=== PATIENT | female | born 1970 | race Caucasian/White ===

== ENCOUNTER → 2016-10-27 | Outpatient (CLI) | payer BC ==
[2016-10-27 14:31] VITALS: BP 147/98; PULSE 108; RESP 20; TEMP 97.8; BMI 66.0
[2016-10-27 15:58] LABS: CHCM 32.4; HCT 48.7 % (34.0-46.0); HDW 2.66; HGB 15.5 gm/dL (11.4-16.0); MCH 29.6 pg (25.0-35.0); MCHC 31.8 g/dL (31.0-37.0); MCV 93.1 fL (80.0-100.0); Mean Platelet Volume 7.4; RBC 5.23 m/uL (3.80-5.40); RDW 14.8 % (11.5-15.5); WBC 10.9 k/uL (3.8-10.6)
[2016-10-27 16:09] LABS: ALT 52 U/L (9-52); AST 27 U/L (14-36); Alkaline Phosphatase 118 U/L (38-126); Anion Gap 10 mmol/L; Blood Urea Nitrogen 13 mg/dL (7-17); Carbon Dioxide 29 mmol/L (22-30); Chloride 105 mmol/L (98-107); Cholesterol 174 mg/dL (<200); Glucose 88 mg/dL (74-99); HDL Cholesterol 56 mg/dL (40-60); Iron 73 ug/dL (37-170); Non-African American GFR(MDRD) >60 (>60 ml/min/1.73 sqM); Potassium 4.7 mmol/L (3.5-5.1); Sodium 144 mmol/L (137-145); Total Bilirubin 0.4 mg/dL (0.2-1.3); Total Protein 7.4 g/dL (6.3-8.2); Triglycerides 106 mg/dL (<150)
[2016-10-27 16:19] LABS: Total Iron Binding Capacity 453 ug/dL (265-497)
[2016-10-27 17:15] LABS: Vitamin B12 379 pg/mL (239-931)
[2016-10-27 21:23] LABS: Hemoglobin A1C 6.4 % (4.2-6.1)
[2016-11-01 05:03] LABS: Anabasine Urine <2.0 ng/mL (<2.0)
--- NOTE | 2016-11-14 16:53 | P.PN ---
Progress Note - Text DATE OF CONSULTATION: 10/27/2016 DATE OF SERVICE: 10/27/2016 CHIEF COMPLAINT: Initial bariatric assessment. HISTORY OF PRESENT ILLNESS: Luz Elena Galloway is a 46-year-old female who comes in with long-standing history of morbid obesity. At a height of 5 feet, 5 inches, she comes in weighing 396 pounds. [place] body weight is 149 pounds. She is 247 pounds overweight. Her body mass is 66. She has tried cabbage diet including Weight Watchers. She also tried Atkins and My Fitness Pal. She actually had an adjustable gastric band placed in 2007. She reports intolerance to fills. The most that she has been able to lose with any of her weight loss programs is 80 pounds; however, she has gained all of her weight back. Again, her highest weight is at present, 396 pounds. Her personal goal is to get under 200 pounds. She reports hypertension including chronic obstructive pulmonary disease. She has diabetes including morbid obesity that runs in her family. She denies any personal or family history of colitis or Crohn's disease. She denies any diarrhea; however, she has constipation. She reports daytime somnolence including snoring and is yet to be evaluated for sleep apnea. Incidentally she is on amiodarone for her heart and is pending to see a record center specialist. She reports her gallbladder is already removed. She also reports severe and recurrent panniculitis. Now she presents for further evaluation and management. PAST MEDICAL HISTORY: 1. Super morbid obesity. 2. Depression. 3. Chronic obstructive pulmonary disease. 4. Hypertension. 5. Panniculitis. 6. Sleep apnea, untreated. PAST SURGICAL HISTORY: 1. . 2. Cholecystectomy. MEDICATIONS: 1. Multivitamin. 2. Motrin. 3. Ultram. 4. Effexor. 5. Singulair. 6. Lasix. 7. Vitamin D. 8. Ativan. 9. Amiodarone. ALLERGIES: Denies. SOCIAL HISTORY: No active alcohol use. She is a former tobacco user. FAMILY HISTORY: Pertinent for diabetes including morbid obesity. REVIEW OF SYSTEMS: CONSTITUTIONAL: [place] body weight of 149 pounds. At present, highest weight of 396 pounds. She is 247 pounds overweight. For a height of 5 feet 5 inches, her body mass index is 66. HEENT: Wears glasses. No troubles with hearing. Denies dysphagia. ENDOCRINE: Denies any known history of thyroid disorders or blood sugar glucose intolerance. RESPIRATORY: Reports daytime somnolence including snoring. She is yet to have treatment for obstructive sleep apnea. CARDIOVASCULAR: Has hypertension including prior history of heart disease. As a result, she is on amiodarone as well. GASTROINTESTINAL: Reports intermittent gastroesophageal reflux disease. She has a history of adjustable gastric band as well. The gallbladder has already been removed. She reports constipation. No reports of blood in her stools. MUSCULOSKELETAL: Has osteoarthritis of the lower back including bilateral hips and knees. NEURO: No reports of stroke or seizure disorders. PSYCH: No reports of depression or suicidal ideation. HEMATOLOGIC: Denies any easy bruising or bleeding. DIETARY HISTORY: She is tried cabbage diet, Atkins, My Fitness Pal including Weight Watchers. PHYSICAL EXAM: VITAL SIGNS: 97.8, 108, 20, 147/98; 5 feet 5 inches, 396 pounds. Body mass index of 66. GENERAL: Well-developed female in no acute distress. HEENT: No scleral icterus. Extraocular movements grossly intact. Moist buccal mucosa. NECK: Supple without lymphadenopathy. CHEST: Nonlabored respirations with equal bilateral excursions. CARDIOVASCULAR: Tachycardic. ABDOMEN: Soft, nontender, nondistended. MUSCULOSKELETAL: No clubbing , however, 2+ bilateral pitting edema. NEURO: No focal or lateralizing signs. Cranial nerves 2 through 12 grossly within normal limits. PSYCH: Appropriate affect. Alert and oriented to person, place, and time. SKIN: Hyperpigmentation along the neck base, highly suspicious for diabetes. Also, moderate pannus, with hyperpigmentation and erythema consistent with panniculitis and skin ulcerations. LABS: White count elevated at 10.9. Hematocrit elevated at 48.7. Hemoglobin A1c elevated at 6.4. Thyroid-stimulating hormone normal. EKG is pending. ASSESSMENT: 1. Morbid obesity due to excess calories. 2. Body mass index is 66. 3. Prior history of adjustable gastric band with intolerance. 4. Obstructive sleep apnea, untreated. 5. Glucose intolerance with diabetes. 6. Leukocytosis. 7. Hypertensive cardiomyopathy. 8. History of left ventricular hypertrophy. 9. Bilateral lower extremity edema. 10. Gastroesophageal reflux disease. 11. Osteoarthritis of the lower back. 12. Osteoarthritis of the bilateral hips. 13. Osteoarthritis of bilateral knees. 14. Congestive heart failure. PLAN: 1. She has multiple medical comorbidities related to her obesity including a body mass index of 66. Recommend surgical intervention particularly gastrectomy-type procedures. 2. She has a history of adjustable gastric band and also has gastroesophageal reflux disease despite no fluid in her band. With her present symptoms, I do recommend removal of adjustable gastric band as she has intolerance to her procedure. 3. Recommend evaluation with the record center specialist as she has history of tachycardia as well as dyspnea on exertion and bilateral lower extremity edema with potential congestive heart failure on exam. She did have a previous echo which was reviewed demonstrating moderate left ventricular hypertrophy. 4. Recommend medical risk assessment. 5. A 12-lead EKG advised. 6. Recommend a psych assessment evaluation. 7. [place] [facility] was reviewed for which the risk of the procedure, especially revision of procedure puts her at high risk for complications. 8. Recommend upper endoscopy for history of gastroesophageal reflux disease as well. 9. As her hemoglobin A1c is elevated consistent with diabetes, this may be dietary controlled as well. Thank you very much for this kind consultation. ADDENDUM: Recommend referral to a sleep clinic for untreated obstructive sleep apnea.
== END | disposition home or self-care (01) ==
LOC: BARWHC3 13:48
PROVIDERS: ATTEND Surgery Plastic and Reconstructive Surgery
DX: Z01.818 Encounter for other preprocedural examination (principal); E66.01 Morbid (severe) obesity due to excess calories; Z68.44 Body mass index [BMI] 60.0-69.9, adult; G47.33 Obstructive sleep apnea (adult) (pediatric); E74.39 Other disorders of intestinal carbohydrate absorption; E11.9 Type 2 diabetes mellitus without complications; D72.829 Elevated white blood cell count, unspecified; I11.9 Hypertensive heart disease without heart failure; I51.7 Cardiomegaly; R60.0 Localized edema; R00.0 Tachycardia, unspecified; R06.00 Dyspnea, unspecified; K21.9 Gastro-esophageal reflux disease without esophagitis; M47.896 Other spondylosis, lumbar region; M16.0 Bilateral primary osteoarthritis of hip; M17.0 Bilateral primary osteoarthritis of knee; Z79.899 Other long term (current) drug therapy; Z87.891 Personal history of nicotine dependence; Z98.84 Bariatric surgery status
CPT/HCPCS: 36415; 80053; 80061; 80323; 82306; 82607; 82728; 82746; 83036; 83540; 83550; 84425; 84443; 85027; 99201

== ENCOUNTER 2016-11-08 13:42 | Emergency (ER) | payer BC ==
[2016-11-08 14:10] VITALS: RESP 18
[2016-11-08] MEDS ORDERED: LABETALOL SYRINGE 5 MG/ML IVP STA (16:49)
[2016-11-08 17:08] LABS: Basophils # (A) 0.1 k/uL (0-0.2); Basophils % (A) 0 %; CHCM 32.8; Eosinophils # (A) 0.2 k/uL (0-0.7); Eosinophils % (A) 1 %; HDW 2.68; HGB 15.5 gm/dL (11.4-16.0); Luc # (Auto) 0.33; Luc % (Auto) 2; Lymphocytes % (A) 21 %; MCH 29.6 pg (25.0-35.0); MCHC 32.2 g/dL (31.0-37.0); MCV 91.7 fL (80.0-100.0); Mean Platelet Volume 6.7; Monocytes # (A) 0.9 k/uL (0-1.0); Monocytes % (A) 7 %; Neutrophils # (A) 9.4 k/uL (1.3-7.7); Neutrophils % (A) 68 %; RBC 5.23 m/uL (3.80-5.40); RDW 14.9 % (11.5-15.5); WBC 13.8 k/uL (3.8-10.6); WBC (Perox) 13.46
[2016-11-08 17:18] LABS: Anion Gap 14 mmol/L; Blood Urea Nitrogen 17 mg/dL (7-17); Calcium 9.8 mg/dL (8.4-10.2); Carbon Dioxide 26 mmol/L (22-30); Chloride 105 mmol/L (98-107); Glucose 105 mg/dL (74-99); Non-African American GFR(MDRD) >60 (>60 ml/min/1.73 sqM); Potassium 4.3 mmol/L (3.5-5.1); Sodium 145 mmol/L (137-145)
--- NOTE | 2016-11-08 17:29 | XR ---
EXAMINATION TYPE: XR chest 2V DATE OF EXAM: 11/08/2016 5:22 PM COMPARISON: 04/13/2016 HISTORY: Hypertension TECHNIQUE: Frontal and lateral views of the chest are obtained. FINDINGS: There is no heart failure nor confluent pneumonic infiltrate. Costophrenic angles are bee r. There are no hilar masses. Bony thorax is intact. IMPRESSION: No active cardiopulmonary disease. No change.
--- NOTE | 2016-11-08 17:39 | ED ---
General Adult HPI - General Chief complaint: Recheck/Abnormal Lab/Rx Stated complaint: Dr Ellis/VIVIENNE Time Seen by Provider: 11/08/16 16:28 Source: patient Mode of arrival: ambulatory Limitations: no limitations - History of Present Illness Initial comments: Patient is a 46-year-old female with past history of hypertension presenting with hypertension, headache and SOB. Patient had a regular routine visit with her primary care doctor today who found blood pressure be ~200/100. PCP tried clonidine without relief. Patient states she's been having a generalized headache and stress breath for the past 3 days. She admits to blurry vision. Patient states she is on Lasix as well as lisinopril/hydrochlorothiazide for her blood pressure. She admits to compliance with her medications. Patient continues to smoke 6 cigarettes a day. She states she is more SOB and unable to walk far distances. Patient denies following a salt restricted diet. Patient denies fever, chills, chest pain, nausea or vomiting, diarrhea, dysuria. Denies weakness, numbness. - Related Data Home Medications Medication Instructions Recorded Confirmed Furosemide [Lasix] 20 mg PO DAILY 04/13/16 11/08/16 Venlafaxine HCl [Effexor XR] 225 mg PO DAILY 04/13/16 11/08/16 Ergocalciferol [Vitamin D2] 50,000 unit PO MO 10/27/16 11/08/16 Ibuprofen [Motrin] 600 mg PO Q8HR PRN 10/27/16 11/08/16 LORazepam [Ativan] 0.5 mg PO TID 10/27/16 11/08/16 Montelukast [Singulair] 10 mg PO HS 10/27/16 11/08/16 Multivitamins, Thera [Multivitamin] 1 tab PO DAILY 10/27/16 11/08/16 Gabapentin [Neurontin] 300 mg PO TID 11/08/16 11/08/16 amLODIPine [Norvasc] 10 mg PO DAILY 11/08/16 11/08/16 Previous Rx's Medication Instructions Recorded traMADol HCl [Ultram] 50 mg PO Q4H PRN #30 tab 04/14/16 Nystatin 100,000 Unit/gm Powd 1 applic TOPICAL BID #60 powder 10/27/16 [Mycostatin Powder] Allergies Allergy/AdvReac Type Severity Reaction Status Date / Time No Known Allergies Allergy Verified 11/08/16 17:03 Review of Systems ROS Statement: Those systems with pertinent positive or pertinent negative responses have been documented in the HPI. Constitutional: No fever and no chills. HENT: No congestion, no rhinorrhea and no sore throat. Eyes: No discharge and no redness. Respiratory: No cough and +shortness of breath. Cardiovascular: No chest pain and no palpitations. Gastrointestinal: No nausea, no vomiting, no abdominal pain and no diarrhea. Genitourinary: No dysuria and no hematuria. Musculoskeletal: No back pain and no arthralgias. Skin: No pallor and no rash. Neurological: No dizziness and +headaches. ROS Other: All systems not noted in ROS Statement are negative. Past Medical History Past Medical History: Hypertension Additional Past Medical History / Comment(s): neuropathy, edema, brain lesions, anemia History of Any Multi-Drug Resistant Organisms: None Reported Past Surgical History: Bariatric Surgery, Section, Cholecystectomy, Hysterectomy, Tubal Ligation Additional Past Surgical History / Comment(s): lap band 2008, oopherectomy Past Anesthesia/Blood Transfusion Reactions: No Reported Reaction Past Psychological History: No Psychological Hx Reported Smoking Status: Current every day smoker Past Alcohol Use History: None Reported Past Drug Use History: None Reported - Past Family History Mother Family Medical History: Hypertension Father Family Medical History: Hypertension General Exam - General Exam Comments Initial Comments: Constitutional: Patient appears well-developed and well-nourished. No distress. Morbidly obese. Head: Normocephalic and atraumatic. Eyes: Conjunctivae and EOM are normal. Right eye exhibits no discharge. Left eye exhibits no discharge. No scleral icterus. Neck: Normal range of motion. Neck supple. Cardiovascular: Normal rate and regular rhythm. No murmur heard. Pulmonary/Chest: Effort normal and breath sounds normal. No respiratory distress. No wheezes. Abdominal: Soft. No distension. There is no tenderness. There is no rebound and no guarding. Musculoskeletal: Normal range of motion. No edema or tenderness. Neuro Exam: A&Ox3, speech is fluent and spontaneous CN 2: no visual field deficits, PERRL CN 3, 4, 6: EOMI CN 5: facial sensation intact b/l CN 7: Eyebrow raise and smile equal b/l CN 8: hearing intact to conversation CN 9, 10: palate elevation equal, no hoarseness to voice CN 11: shoulder shrug equal b/l CN 12: tongue protrusion w/o deviation Sensory: Intact to light touch, upper and lower extremities Motor: No pronator drift, no atrophy, normal muscle tone, b/l muscle strength 5/ 5 of hand flexors, biceps, triceps, quads, hamstrings, plantar and dorsiflexion Cerebellar: finger to nose intact b/l, heel to jimenez intact b/l, Romberg negative Gait: Normal Skin: Skin is warm and dry. Not diaphoretic. Nursing notes and vitals reviewed. Limitations: no limitations Course Vital Signs 11/08/16 11/08/16 14:07 18:24 Temperature 98.7 F Pulse Rate 124 H 89 Respiratory 18 18 Rate Blood Pressure 215/98 161/89 O2 Sat by Pulse 96 94 L Oximetry EKG Findings - EKG Comments: EKG Findings:: EKG done 1701 shows a ventricular rate of 92 bpm. Normal sinus rhythm. No ST or T-wave changes. ID interval 160 ms, QRS duration 98 ms, QTC 452 ms Medical Decision Making - Medical Decision Making Patient's a 46-year-old presenting with hypertension. Blood pressure controlled the 20 mg labetalol. Workup does not show any signs of end organ damage. Laboratory work shows WBC 13.8, unremarkable BMP. Troponin negative. EKG unremarkable. Chest x-ray unremarkable. Negative head CT. Discussed care with Dr. Almeida who will adjust patient's hypertension tomorrow. He called in a prescription for Benicar to her pharmacy. He states he will have cardiology follow-up in the week. Prior to discharge, patient was resting comfortably in bed. Course of stay improved. Denies pain. Shortness of breath improved with rest. Discussed physical exam and diagnostic tests with patient. Questions answered and patient is agreeable to discharge with close follow up with Primary Care Physician. Instructed to return to Emergency Department if symptoms worsen. - Lab Data Result diagrams: 11/08/16 17:00 11/08/16 17:00 Lab Results 11/08/16 11/08/16 11/08/16 Range/Units 17:00 17:00 17:00 WBC 13.8 H (3.8-10.6) k/uL RBC 5.23 (3.80-5.40) m/uL Hgb 15.5 (11.4-16.0) gm/dL Hct 48.0 H (34.0-46.0) % MCV 91.7 (80.0-100.0) fL MCH 29.6 (25.0-35.0) pg MCHC 32.2 (31.0-37.0) g/dL RDW 14.9 (11.5-15.5) % Plt Count 322 (150-450) k/uL Neutrophils % 68 % Lymphocytes % 21 % Monocytes % 7 % Eosinophils % 1 % Basophils % 0 % Neutrophils # 9.4 H (1.3-7.7) k/uL Lymphocytes # 3.0 (1.0-4.8) k/uL Monocytes # 0.9 (0-1.0) k/uL Eosinophils # 0.2 (0-0.7) k/uL Basophils # 0.1 (0-0.2) k/uL Sodium 145 (137-145) mmol/L Potassium 4.3 (3.5-5.1) mmol/L Chloride 105 (98-107) mmol/L Carbon Dioxide 26 (22-30) mmol/L Anion Gap 14 mmol/L BUN 17 (7-17) mg/dL Creatinine 0.69 (0.52-1.04) mg/dL Est GFR (MDRD) Af Amer >60 (>60 ml/min/1.73 sqM) Est GFR (MDRD) Non-Af >60 (>60 ml/min/1.73 sqM) Glucose 105 H (74-99) mg/dL Calcium 9.8 (8.4-10.2) mg/dL Troponin I <0.012 (0.000-0.034) ng/mL Disposition Clinical Impression: Hypertension Disposition: HOME SELF-CARE Condition: Good Instructions: Hypertension (ED) Referrals: Rafael Love MD [Primary Care Provider] - 1-2 days
--- NOTE | 2016-11-08 18:27 | CT ---
EXAMINATION TYPE: CT brain wo con DATE OF EXAM: 11/08/2016 6:18 PM COMPARISON: 04/14/2016 HISTORY: Hypertension and headache. CT DLP: 1207.00 mGycm Automated exposure control for dose reduction was used. FINDINGS: The ventricles and sulci appear normal. There is no mass effect or midline shift. There is no sign of intracranial hemorrhage. There is curvilinear calcification at the left anterior parietal convexity consistent with arachnoid calcification. The calvarium is intact. IMPRESSION: Negative unenhanced head CT scan. No change.
[2016-11-08 19:16] VITALS: BP 136/87; PULSE 80; TEMP 97.5
== END 2016-11-08 19:15 | disposition home or self-care (01) ==
LOC: EC 13:42
DX: I10 Essential (primary) hypertension (principal); R51 Headache; R06.02 Shortness of breath; H53.8 Other visual disturbances; G62.9 Polyneuropathy, unspecified; F17.210 Nicotine dependence, cigarettes, uncomplicated; D64.9 Anemia, unspecified; Z79.899 Other long term (current) drug therapy
CPT/HCPCS: 36415; 70450; 71020; 80048; 84484; 85025; 93005; 96374; 99284

== ENCOUNTER → 2016-11-29 | Outpatient (CLI) | payer BC ==
[2016-11-29 13:02] VITALS: BMI 65.3
== END | disposition home or self-care (01) ==
LOC: MNTWWP 08:41
PROVIDERS: ATTEND Surgery Plastic and Reconstructive Surgery
DX: Z71.3 Dietary counseling and surveillance (principal); E66.01 Morbid (severe) obesity due to excess calories; Z68.44 Body mass index [BMI] 60.0-69.9, adult

== ENCOUNTER → 2016-12-22 | Outpatient (CLI) | payer BC ==
[2016-12-22 14:56] VITALS: BMI 65.9
[2016-12-22 15:08] VITALS: BP 132/83; PULSE 114; RESP 16; TEMP 98.3
--- NOTE | 2017-01-26 | P.PN ---
Progress Note - Text DATE OF SERVICE: 12/22/2016 CHIEF COMPLAINT: Bariatric assessment. HISTORY OF PRESENT ILLNESS: Luz Elena Galloway is a 46-year-old female who initially presented to the program in October of 2016, now a little over a month ago. She reports her highest weight was 396 pounds. Her ideal body weight is 149 pounds. She comes in today weighing 396 pounds which is essentially unchanged. She is 247 pounds overweight. Body mass index is 66. Her weight, again, has been essentially unchanged. She comes in with finding suggestive of sleep apnea. She did not know she had diabetes. She had completed an echocardiogram including an evaluation with her engineering faculty member. Now she presents for further evaluation regarding revision from her band to a potential gastric bypass. PAST MEDICAL HISTORY: 1. Super morbid obesity. 2. Depression. 3. Chronic obstructive pulmonary disease. 4. Hypertension. 5. Panniculitis. 6. Sleep apnea, untreated. PAST SURGICAL HISTORY: 1. . 2. Cholecystectomy. 3. Echocardiogram completed 11/29/2016. MEDICATIONS: 1. Multivitamin. 2. Motrin. 3. Ultram. 4. Effexor. 5. Singulair. 6. Lasix. 7. Vitamin D. 8. Ativan. 9. Amiodarone. ALLERGIES: Denies. SOCIAL HISTORY: No active alcohol use. She is a former tobacco user. FAMILY HISTORY: Pertinent for diabetes including morbid obesity. REVIEW OF SYSTEMS: CONSTITUTIONAL: Axis body weight of 149 pounds. She comes at her highest weight of 396 pounds. She is 247 pounds overweight. Body mass index is unchanged. RESPIRATORY: History of obstructive sleep apnea, untreated. ENDOCRINE: New diagnosis of diabetes type 2, untreated. HEENT: Wears glasses. No troubles with hearing. Denies dysphagia. CARDIOVASCULAR: Has hypertension including prior history of heart disease. As a result, she is on amiodarone as well. GASTROINTESTINAL: Reports intermittent gastroesophageal reflux disease. She has a history of adjustable gastric band as well. The gallbladder has already been removed. She reports constipation. No reports of blood in her stools. MUSCULOSKELETAL: Has osteoarthritis of the lower back including bilateral hips and knees. NEURO: No reports of stroke or seizure disorders. PSYCH: No reports of depression or suicidal ideation. HEMATOLOGIC: Denies any easy bruising or bleeding. DIETARY HISTORY: She is tried cabbage diet, Atkins, My Fitness Pal including Weight Watchers. PHYSICAL EXAM: VITAL SIGNS: 98.3, 114, 16, 132/83; 5 foot 5 and 396 pounds. Body mass index is 66. CARDIOVASCULAR: Tachycardic. ABDOMEN: Soft, nontender, nondistended. Hyperpigmentation of the lower abdomen consistent with panniculitis. GENERAL: Well-developed female in no acute distress. HEENT: No scleral icterus. Extraocular movements grossly intact. Moist buccal mucosa. NECK: Supple without lymphadenopathy. CHEST: Nonlabored respirations with equal bilateral excursions. MUSCULOSKELETAL: No clubbing , however, 1+ bilateral pitting edema. NEURO: No focal or lateralizing signs. Cranial nerves 2 through 12 grossly within normal limits. PSYCH: Appropriate affect. Alert and oriented to person, place, and time. LABS: White blood cell count was elevated at 13.8. Neutrophils was elevated at 9.4. Hemoglobin A1c is 6.4. Urine is positive for active tobacco exposure and use. EKG demonstrated right atrial enlargement. ASSESSMENT: 1. Morbid obesity due to excess calories. 2. Body mass index is 66. 3. Prior history of adjustable gastric band with intolerance. 4. Obstructive sleep apnea, untreated. 5. Glucose intolerance with diabetes. 6. Leukocytosis. 7. Hypertensive cardiomyopathy. 8. History of left ventricular hypertrophy. 9. Bilateral lower extremity edema. 10. Gastroesophageal reflux disease. 11. Osteoarthritis of the lower back. 12. Osteoarthritis of the bilateral hips. 13. Osteoarthritis of bilateral knees. 14. Congestive heart failure. 15. History of complications from adjustable gastric band. 16. Gastroesophageal reflux disease. 17. Panniculitis. 18. Diabetes type 2, untreated. 19. Abnormal EKG with a recent echo completed. PLAN: 1. She has completed a cardiac risk assessment with her engineering faculty member within the last 1 or 2 weeks. 2. I did review with her laboratory results of her hemoglobin A1c is abnormal consistent with prediabetes to diabetes. At this time, it is dietary controlled. 3. She has tachycardia on exam. Again, she has complete cardiac risk assessment. 4. She has persistent elevated leukocytosis. Will likely need a recheck prior to surgical intervention. 5. We reviewed her surgical options. She is looking into a Lucien-en-Y gastric bypass. At this time I have strongly recommended at least removal of her band as she reports discomfort and intractable nausea and vomiting with her adjustable gastric band. 6. She has history of including intra-abdominal adhesions, which alternatives to a sleeve gastrectomy was also reviewed. 7. [place] bariatric surgery collaborative outcomes calculator was reviewed. The risks were also clearly reviewed. 8. Recommend removal of adjustable gastric band prior to any additional definitive surgical intervention.
== END | disposition home or self-care (01) ==
LOC: BARWHC3 13:59
PROVIDERS: ATTEND Surgery Plastic and Reconstructive Surgery
DX: Z01.818 Encounter for other preprocedural examination (principal); E66.01 Morbid (severe) obesity due to excess calories; Z68.44 Body mass index [BMI] 60.0-69.9, adult; Z98.84 Bariatric surgery status; K95.09 Other complications of gastric band procedure; G47.33 Obstructive sleep apnea (adult) (pediatric); E74.39 Other disorders of intestinal carbohydrate absorption; E11.9 Type 2 diabetes mellitus without complications; D72.829 Elevated white blood cell count, unspecified; I11.9 Hypertensive heart disease without heart failure; I51.7 Cardiomegaly; R60.0 Localized edema; K21.9 Gastro-esophageal reflux disease without esophagitis; M47.896 Other spondylosis, lumbar region; M16.0 Bilateral primary osteoarthritis of hip; M17.0 Bilateral primary osteoarthritis of knee; I50.9 Heart failure, unspecified; M79.3 Panniculitis, unspecified; R94.31 Abnormal electrocardiogram [ECG] [EKG]; R00.0 Tachycardia, unspecified; Z72.0 Tobacco use; L81.9 Disorder of pigmentation, unspecified; K59.00 Constipation, unspecified; Z79.899 Other long term (current) drug therapy
CPT/HCPCS: 99211

== ENCOUNTER → 2017-01-12 | Outpatient (CLI) | payer BC ==
[2017-01-12 15:21] LABS: Basophils # (A) 0.1 k/uL (0-0.2); Basophils % (A) 1 %; CH 29.9; CHCM 32.4; Eosinophils # (A) 0.1 k/uL (0-0.7); Eosinophils % (A) 1 %; HCT 50.3 % (34.0-46.0); HGB 16.4 gm/dL (11.4-16.0); Luc # (Auto) 0.42; Luc % (Auto) 3; Lymphocytes # (A) 2.5 k/uL (1.0-4.8); Lymphocytes % (A) 20 %; MCH 30.4 pg (25.0-35.0); MCHC 32.7 g/dL (31.0-37.0); MCV 92.8 fL (80.0-100.0); Mean Platelet Volume 7.6; Monocytes # (A) 0.6 k/uL (0-1.0); Monocytes % (A) 5 %; Neutrophils # (A) 8.8 k/uL (1.3-7.7); Neutrophils % (A) 70 %; RBC 5.42 m/uL (3.80-5.40); RDW 14.6 % (11.5-15.5); WBC 12.5 k/uL (3.8-10.6); WBC (Perox) 13.49
[2017-01-12 15:30] LABS: ALT 48 U/L (9-52); AST 34 U/L (14-36); Alkaline Phosphatase 124 U/L (38-126); Anion Gap 13 mmol/L; Blood Urea Nitrogen 17 mg/dL (7-17); Calcium 9.7 mg/dL (8.4-10.2); Carbon Dioxide 27 mmol/L (22-30); Chloride 101 mmol/L (98-107); Glucose 95 mg/dL (74-99); Non-African American GFR(MDRD) >60 (>60 ml/min/1.73 sqM); Potassium 4.5 mmol/L (3.5-5.1); Sodium 141 mmol/L (137-145); Total Bilirubin 0.5 mg/dL (0.2-1.3); Total Protein 7.8 g/dL (6.3-8.2)
== END ==
LOC: LABPAT 14:45
PROVIDERS: ATTEND Surgery Plastic and Reconstructive Surgery
DX: Z01.812 Encounter for preprocedural laboratory examination (principal)
CPT/HCPCS: 80053; 85025

== ENCOUNTER 2017-01-14 09:25 | Day surgery (SDC) | payer BC ==
[~2017-01-14 09:25] MED LIST: DEXAMETHASONE SOD PHOSPHATE 10 MG/ML 1 ML VIAL IV ONE; HYDROmorphone 1 MG/ML 1 ML SYRINGE IVP PRN; MIDAZOLAM 2 MG/2 ML VIAL IV PRN; ONDANSETRON 4 MG/2 ML VIAL IVP ONE; SCOPOLAMINE 1.5MG/72HR PATCH TRANSDERM ONE; ceFAZolin 3 GM in SODIUM CHLORIDE 0.9% 100 ML IVPB ONE
[2017-01-14] MEDS: LACTATED RINGERS 1,000 ML IV SCH (12:00)
[2017-01-14] MEDS ORDERED: LIDOCAINE 1% 20 ML VIAL (10MG/ML) FOR IV START INTRADERMA ONE (12:00)
--- NOTE | 2017-01-14 15:58 | P.GSHP ---
History of Present Illness H&P Date: 01/14/17 CHIEF COMPLAINT: Complications from gastric band. HISTORY OF PRESENT ILLNESS: Luz Elena Galloway is a 46-year-old female who comes in with long-standing history of morbid obesity. At a height of 5 feet, 5 inches, she comes in weighing 396 pounds. [place] body weight is 149 pounds. She is 247 pounds overweight. Her body mass is 66. She has tried cabbage diet including Weight Watchers. She also tried Atkins and My Fitness Pal. She actually had an adjustable gastric band placed in 2007. She reports intolerance to fills. The most that she has been able to lose with any of her weight loss programs is 80 pounds; however, she has gained all of her weight back. Again, her highest weight is at present, 396 pounds. Her personal goal is to get under 200 pounds. She reports hypertension including chronic obstructive pulmonary disease. She has diabetes including morbid obesity that runs in her family. She denies any personal or family history of colitis or Crohn's disease. She denies any diarrhea; however, she has constipation. She reports daytime somnolence including snoring and is yet to be evaluated for sleep apnea. Incidentally she is on amiodarone for her heart and is pending to see a edge runner. She reports her gallbladder is already removed. She also reports severe and recurrent panniculitis. Now she presents for further evaluation and management. PAST MEDICAL HISTORY: 1. Super morbid obesity. 2. Depression. 3. Chronic obstructive pulmonary disease. 4. Hypertension. 5. Panniculitis. 6. Sleep apnea, untreated. PAST SURGICAL HISTORY: 1. . 2. Cholecystectomy. MEDICATIONS: 1. Multivitamin. 2. Motrin. 3. Ultram. 4. Effexor. 5. Singulair. 6. Lasix. 7. Vitamin D. 8. Ativan. 9. Amiodarone. ALLERGIES: Denies. SOCIAL HISTORY: No active alcohol use. She is a former tobacco user. FAMILY HISTORY: Pertinent for diabetes including morbid obesity. REVIEW OF SYSTEMS: CONSTITUTIONAL: [place] body weight of 149 pounds. At present, highest weight of 396 pounds. She is 247 pounds overweight. For a height of 5 feet 5 inches, her body mass index is 66. HEENT: Wears glasses. No troubles with hearing. Denies dysphagia. ENDOCRINE: Denies any known history of thyroid disorders or blood sugar glucose intolerance. RESPIRATORY: Reports daytime somnolence including snoring. She is yet to have treatment for obstructive sleep apnea. CARDIOVASCULAR: Has hypertension including prior history of heart disease. As a result, she is on amiodarone as well. GASTROINTESTINAL: Reports intermittent gastroesophageal reflux disease. She has a history of adjustable gastric band as well. The gallbladder has already been removed. She reports constipation. No reports of blood in her stools. MUSCULOSKELETAL: Has osteoarthritis of the lower back including bilateral hips and knees. NEURO: No reports of stroke or seizure disorders. PSYCH: No reports of depression or suicidal ideation. HEMATOLOGIC: Denies any easy bruising or bleeding. DIETARY HISTORY: She is tried cabbage diet, Atkins, My Fitness Pal including Weight Watchers. PHYSICAL EXAM: VITAL SIGNS: 97.8, 108, 20, 147/98; 5 feet 5 inches, 396 pounds. Body mass index of 66. GENERAL: Well-developed female in no acute distress. HEENT: No scleral icterus. Extraocular movements grossly intact. Moist buccal mucosa. NECK: Supple without lymphadenopathy. CHEST: Nonlabored respirations with equal bilateral excursions. CARDIOVASCULAR: Tachycardic. ABDOMEN: Soft, nontender, nondistended. MUSCULOSKELETAL: No clubbing , however, 2+ bilateral pitting edema. NEURO: No focal or lateralizing signs. Cranial nerves 2 through 12 grossly within normal limits. PSYCH: Appropriate affect. Alert and oriented to person, place, and time. SKIN: Hyperpigmentation along the neck base, highly suspicious for diabetes. Also, moderate pannus, with hyperpigmentation and erythema consistent with panniculitis and skin ulcerations. LABS: White count elevated at 10.9. Hematocrit elevated at 48.7. Hemoglobin A1c elevated at 6.4. Thyroid-stimulating hormone normal. EKG is pending. ASSESSMENT: 1. Morbid obesity due to excess calories. 2. Body mass index is 66. 3. Prior history of adjustable gastric band with intolerance. 4. Obstructive sleep apnea, untreated. 5. Glucose intolerance with diabetes. 6. Leukocytosis. 7. Hypertensive cardiomyopathy. 8. History of left ventricular hypertrophy. 9. Bilateral lower extremity edema. 10. Gastroesophageal reflux disease. 11. Osteoarthritis of the lower back. 12. Osteoarthritis of the bilateral hips. 13. Osteoarthritis of bilateral knees. 14. Congestive heart failure. PLAN: 1. She has multiple medical comorbidities related to her obesity including a body mass index of 66. Recommend surgical intervention particularly gastrectomy-type procedures. 2. She has a history of adjustable gastric band and also has gastroesophageal reflux disease despite no fluid in her band. With her present symptoms, I do recommend removal of adjustable gastric band as she has intolerance to her procedure. 3. DVT prophylaxis. 4. Antibiotic prophylaxis. 5. As she is at increased risk, post-op observation pending. Past Medical History Past Medical History: GERD/Reflux, Hypertension, Sleep Apnea/CPAP/BIPAP Additional Past Medical History / Comment(s): neuropathy, edema, brain lesions, anemia, migraines, getting cpap, History of Any Multi-Drug Resistant Organisms: None Reported Past Surgical History: Bariatric Surgery, Section, Cholecystectomy, Hysterectomy, Tubal Ligation Additional Past Surgical History / Comment(s): lap band, oopherectomy, Past Anesthesia/Blood Transfusion Reactions: No Reported Reaction Past Psychological History: Anxiety Smoking Status: Former smoker Past Alcohol Use History: None Reported Additional Past Alcohol Use History / Comment(s): stopped smoking 1 week ago, smoked for 20 yrs - 1/2 PPD Past Drug Use History: None Reported - Past Family History Mother Family Medical History: Cancer Father Family Medical History: Hypertension Medications and Allergies Home Medications Medication Instructions Recorded Confirmed Type Furosemide [Lasix] 20 mg PO DAILY 04/13/16 01/14/17 History Venlafaxine HCl [Effexor XR] 225 mg PO DAILY 04/13/16 01/14/17 History Ergocalciferol [Vitamin D2] 50,000 unit PO MO 10/27/16 01/14/17 History Ibuprofen [Motrin] 600 mg PO Q8HR PRN 10/27/16 01/12/17 History LORazepam [Ativan] 0.5 mg PO TID PRN 10/27/16 01/14/17 History Montelukast [Singulair] 10 mg PO HS 10/27/16 01/14/17 History Multivitamins, Thera [Multivitamin] 1 tab PO DAILY 10/27/16 01/12/17 History Gabapentin [Neurontin] 300 mg PO TID 11/08/16 01/14/17 History Olmesartan/Hydrochlorothiazide 1 each PO DAILY 01/12/17 01/14/17 History [Olmesartan-Hctz 40-25 mg Tab] Allergies Allergy/AdvReac Type Severity Reaction Status Date / Time No Known Allergies Allergy Verified 01/12/17 11:13 Surgical - Exam Vital Signs Temp Pulse Resp BP Pulse Ox 97.2 F L 89 18 145/88 96 01/14/17 11:41 01/14/17 11:41 01/14/17 11:41 01/14/17 11:41 01/14/17 11:41
[2017-01-14] MEDS ORDERED: ENOXAPARIN 40 MG/0.4 ML SYRINGE SQ STA (16:14)
[2017-01-14] MEDS ORDERED: MIDAZOLAM 2 MG/2 ML VIAL ONE (16:23)
[2017-01-14] MEDS ORDERED: NEOSTIGMINE 1 MG/ML 10 ML VIAL ONE (16:23)
[2017-01-14] MEDS ORDERED: ePHEDrine 50 MG/ML 1 ML AMP ONE (16:23)
[2017-01-14] MEDS ORDERED: GLYCOPYRROLATE 0.2 MG/ML 2 ML VIAL ONE (16:23)
[2017-01-14] MEDS ORDERED: ROCURONIUM BROMIDE 10 MG/ML 10 ML VIAL IV ONE (16:23)
[2017-01-14] MEDS ORDERED: fentaNYL (PF) 50 MCG/ML 2 ML AMP ONE (16:23)
[2017-01-14] MEDS ORDERED: SUCCINYLCHOLINE CHLORIDE VIAL 200 MG/10 ML VIAL IV ONE (16:23)
[2017-01-14] MEDS ORDERED: PHENYLEPHRINE-0.9% NACL SYG 1 MG/10 ML SYRINGE ONE (16:23)
[2017-01-14] MEDS ORDERED: PROPOFOL 10 MG/ML 20 ML VIAL IV ONE (16:23)
[2017-01-14] MEDS ORDERED: LIDOCAINE 1% INJ 10MG/ML (20 ML MDV) ONE (16:23)
[2017-01-14] MEDS ORDERED: BUPIVACAIN-EPI 0.25%-1:200,000 30 ML VIAL SQ ONE ×2 (17:15)
[2017-01-14] MEDS ORDERED: LACTATED RINGERS 1,000 ML IV ONE (17:41)
[2017-01-14] MEDS ORDERED: ONDANSETRON 4 MG/2 ML VIAL IVP PRN (18:43)
[2017-01-14] MEDS ORDERED: NALOXONE 0.4 MG/ML 1 ML VIAL IV PRN (18:43)
[2017-01-14] MEDS ORDERED: HYDROmorphone 1 MG/ML 1 ML SYRINGE IVP PRN (18:43)
[2017-01-14] MEDS ORDERED: HYDROcodone/APAP 15 ML SOLUTION PO PRN (18:43)
[2017-01-14] MEDS ORDERED: LORazepam 0.5 MG TAB PO PRN (18:45)
[2017-01-14] MEDS ORDERED: IBUPROFEN 600 MG TAB PO PRN (18:45)
--- NOTE | 2017-01-14 18:47 | P.PCN ---
Date of Procedure: 01/14/17 Preoperative Diagnosis: Complications from adjustable gastric band, morbid obesity, BMI 61.6 Postoperative Diagnosis: Same, difficult intubation, gastric prolapse, severe obstructive sleep apnea Procedure(s) Performed: Laparoscopic removal of adjustable gastric band and all components, intraoperative EGD with biopsy Anesthesia: VAN, local Surgeon: Diana Sandy Estimated Blood Loss (ml): 5 Pathology: other (Gastric antrum, which was put gastric band) Condition: stable Disposition: observation Operative Findings: Very old original just with gastric band with posterior gastric prolapse, difficult intubation with history of severe obstructive sleep apnea recommend overnight observation prior to discharge
[2017-01-14] MEDS: ALBUTEROL NEBULIZED 2.5 MG/3 ML INHALATION SCH (19:12)
[2017-01-14 20:03] LABS: Glucose,Whole Blood 151 mg/dL (75-99)
[2017-01-14] MEDS: 0.9% NACL WITH KCL 20 MEQ/L 1,000 ML IV SCH (20:51)
[2017-01-14] MEDS ORDERED: MONTELUKAST 10 MG TAB PO SCH (21:00)
[2017-01-14] MEDS: traMADol 50 MG TAB PO PRN (21:24)
[2017-01-14] MEDS: GABAPENTIN 300 MG CAP PO SCH (21:24)
--- NOTE | 2017-01-15 00:17 | P.PN ---
Subjective Principal diagnosis: Morbid obesity The patient is postoperative day 0 status post removal of adjustable gastric band. She is doing well. Her son is at bedside. Her pain is well-controlled. Objective - Vital Signs Vital signs: Vital Signs Temp 97.7 F 01/14/17 18:36 Pulse 100 01/14/17 19:00 Resp 16 01/14/17 19:00 BP 123/55 01/14/17 19:00 Pulse Ox 96 01/14/17 19:00 Intake & Output 01/14/17 01/14/17 01/15/17 06:59 18:59 06:59 Intake Total 300 Balance 300 Intake: IV 300 - Exam GENERAL: Well developed and in no acute distress. Pleasant. HEENT: No sclera icterus. Extraocular movements grossly intact. Moist buccal mucosa. Head is atraumatic, normocephalic. Hears conversational speech. No nasal drainage. NECK: Supple without lymphadenopathy. No JV distention. CHEST: Non-labored respirations and equal bilateral excursions. CARDIOVASCULAR: Regular rate and rhythm. Palpable 2+ radial pulses. ABDOMEN: Soft, minimal distention. Incisions clean dry and intact with Dermabond. No signs of infection. Abdominal binder present. Minimal whitney- incisional pain. No peritonitis. MUSCULOSKELETAL: No clubbing, cyanosis or edema. NEUROLOGIC: No focal or lateralizing signs. PSYCH: Appropriate affect. Alert and oriented to person, place and time. - Labs Labs: Abnormal Lab Results - Last 24 Hours (Table) 01/14/17 Range/Units 19:46 POC Glucose (mg/dL) 151 H (75-99) mg/dL Assessment and Plan (1) Morbid obesity due to excess calories Status: Acute (2) BMI 60.0-69.9, adult Status: Acute (3) Complication of gastric band procedure Status: Acute (4) Gastroesophageal reflux disease Status: Acute (5) Gastritis Status: Acute (6) Diabetes mellitus type 2, noninsulin dependent Status: Acute (7) Severe obstructive sleep apnea Status: Acute (8) Difficult intubation Status: Acute (9) Hypertensive heart disease Status: Acute Plan: 1. With her history of difficult intubation including the severity of obstructive sleep apnea, recommend to monitor for apnea. 2. Bariatric dietitian follow-up advised. 3. Sliding scale for new diagnosis of diabetes type 2. 4. Abdominal binder for comfort.
[2017-01-15] MEDS: ceFAZolin 3 GM in SODIUM CHLORIDE 0.9% 100 ML IVPB SCH ×2 (00:44→09:04)
[2017-01-15] MEDS: INSULIN LISPRO (humaLOG) 300 UNIT/3 ML VIAL SQ SCH ×3 (00:54→13:17)
[2017-01-15 01:14] LABS: Glucose,Whole Blood 119 mg/dL (75-99)
[2017-01-15 02:49] VITALS: BMI 61.4
[2017-01-15] MEDS: 0.9% NACL WITH KCL 20 MEQ/L 1,000 ML IV SCH (05:06)
[2017-01-15 06:53] LABS: Glucose,Whole Blood 118 mg/dL (75-99)
[2017-01-15] MEDS: traMADol 50 MG TAB PO PRN ×2 (07:49→12:52)
[2017-01-15 07:50] LABS: Basophils % (A) 0 %; CHCM 32.2; Eosinophils # (A) 0.1 k/uL (0-0.7); Eosinophils % (A) 1 %; HCT 45.4 % (34.0-46.0); HDW 2.64; HGB 14.5 gm/dL (11.4-16.0); Luc # (Auto) 0.17; Luc % (Auto) 1; Lymphocytes # (A) 1.5 k/uL (1.0-4.8); Lymphocytes % (A) 11 %; MCH 29.9 pg (25.0-35.0); MCHC 31.9 g/dL (31.0-37.0); MCV 93.7 fL (80.0-100.0); Mean Platelet Volume 7.6; Monocytes # (A) 0.5 k/uL (0-1.0); Monocytes % (A) 4 %; Neutrophils # (A) 10.5 k/uL (1.3-7.7); Neutrophils % (A) 82 %; RBC 4.84 m/uL (3.80-5.40); RDW 14.9 % (11.5-15.5); WBC 12.8 k/uL (3.8-10.6); WBC (Perox) 13.28
[2017-01-15 08:00] LABS: Anion Gap 11 mmol/L; Blood Urea Nitrogen 13 mg/dL (7-17); Carbon Dioxide 27 mmol/L (22-30); Chloride 102 mmol/L (98-107); Magnesium 2.1 mg/dL (1.6-2.3); Non-African American GFR(MDRD) >60 (>60 ml/min/1.73 sqM); Phosphorous 3.2 mg/dL (2.5-4.5); Potassium 4.6 mmol/L (3.5-5.1); Sodium 140 mmol/L (137-145)
[2017-01-15] MEDS ORDERED: 1: MVI, ADULT NO.4 WITH VIT K 10 ML, THIAMINE 100 MG, FOLIC ACID 1 MG, POTASSIUM CHLORID IV SCH ×6 (08:00)
[2017-01-15] MEDS: ALBUTEROL NEBULIZED 2.5 MG/3 ML INHALATION SCH ×2 (08:54→11:07)
[2017-01-15] MEDS ORDERED: PANTOPRAZOLE 40 MG/10 ML VIAL IV SCH (09:00)
[2017-01-15] MEDS ORDERED: HYDROCHLOROTHIAZIDE PO SCH (09:00)
[2017-01-15] MEDS ORDERED: [UNRECOGNIZED DRUG - OTHER] PO SCH (09:00)
[2017-01-15] MEDS ORDERED: HYDROCHLOROTHIAZIDE 25 MG TAB PO SCH (09:00)
[2017-01-15] MEDS ORDERED: OLMESARTAN PO SCH (09:00)
[2017-01-15] MEDS ORDERED: ENOXAPARIN 60 MG/0.6 ML SYRINGE SQ SCH (09:00)
[2017-01-15] MEDS ORDERED: LOSARTAN 50 MG TAB PO SCH (09:00)
[2017-01-15] MEDS ORDERED: FUROSEMIDE 20 MG TAB PO SCH (09:00)
[2017-01-15] MEDS: GABAPENTIN 300 MG CAP PO SCH (09:06)
[2017-01-15 11:17] VITALS: BP 141/68; PULSE 94; RESP 18; TEMP 97.8
[2017-01-15] MEDS: LACTATED RINGERS 1,000 ML IV SCH (11:22)
[2017-01-15 11:42] LABS: Glucose,Whole Blood 123 mg/dL (75-99)
[2017-01-15] MEDS ORDERED: MULTIVITAMINS, THERA 1 EACH TAB PO SCH (12:00)
[2017-01-15 12:47] LABS: Hemoglobin A1C 6.8 % (4.2-6.1)
--- NOTE | 2017-01-15 16:16 | P.PN ---
Subjective Principal diagnosis: Morbid obesity The patient is postoperative day 1 status post removal of adjustable gastric band. Overnight, she reported troubles with breathing however this morning this is resolved. Her family is at bedside. She had tolerated breakfast including lunch. She denies any moderate abdominal pain this morning. She denied any shortness of breath. Objective - Vital Signs Vital signs: Vital Signs Temp 97.8 F 01/15/17 08:00 Pulse 94 01/15/17 11:16 Resp 18 01/15/17 08:00 BP 141/68 01/15/17 08:00 Pulse Ox 93 L 01/15/17 08:00 Intake & Output 01/14/17 01/15/17 01/15/17 18:59 06:59 18:59 Intake Total 300 180 Balance 300 180 Weight 178 kg Intake: IV 300 Oral 180 Other: # Voids 3 # Bowel Movements 1 - Exam GENERAL: Well developed and in no acute distress. Pleasant. HEENT: No sclera icterus. Extraocular movements grossly intact. Moist buccal mucosa. Head is atraumatic, normocephalic. Hears conversational speech. No nasal drainage. NECK: Supple without lymphadenopathy. No JV distention. CHEST: Non-labored respirations and equal bilateral excursions. CARDIOVASCULAR: Regular rate and rhythm. Palpable 2+ radial pulses. ABDOMEN: Soft, Incisions clean dry and intact with Dermabond. No signs of infection. Abdominal binder present. Nontender. MUSCULOSKELETAL: No clubbing, cyanosis or edema. NEUROLOGIC: No focal or lateralizing signs. PSYCH: Appropriate affect. Alert and oriented to person, place and time. - Labs CBC & Chem 7: 01/15/17 06:55 01/15/17 06:55 Labs: Abnormal Lab Results - Last 24 Hours (Table) 01/14/17 01/15/17 01/15/17 Range/Units 19:46 00:52 06:51 WBC (3.8-10.6) k/uL Neutrophils # (1.3-7.7) k/uL POC Glucose (mg/dL) 151 H 119 H 118 H (75-99) mg/dL Hemoglobin A1c (4.2-6.1) % 01/15/17 01/15/17 01/15/17 Range/Units 06:55 06:55 11:40 WBC 12.8 H (3.8-10.6) k/uL Neutrophils # 10.5 H (1.3-7.7) k/uL POC Glucose (mg/dL) 123 H (75-99) mg/dL Hemoglobin A1c 6.8 H (4.2-6.1) % Assessment and Plan (1) Morbid obesity due to excess calories Status: Acute (2) BMI 60.0-69.9, adult Status: Acute (3) Complication of gastric band procedure Status: Acute (4) Gastroesophageal reflux disease Status: Acute (5) Gastritis Status: Acute (6) Diabetes mellitus type 2, noninsulin dependent Status: Acute (7) Severe obstructive sleep apnea Status: Acute (8) Difficult intubation Status: Acute (9) Hypertensive heart disease Status: Acute Plan: 1. May discharge home with abdominal binder for comfort. 2. Follow-up in the bariatric center in 5 days. 3. She reports having narcotics at home hence no new pain prescription. 4. Incentive spirometry for home was advised. She reports having one at home. 5. She is pending her CPAP machine with her sleep specialist.
--- NOTE | 2017-01-15 16:19 | P.DS ---
Providers Date of admission: 01/14/2017 Expected date of discharge: 01/15/17 Attending physician: Diana Sandy Primary care physician: Stated None - Discharge Diagnosis(es) (1) Morbid obesity due to excess calories Status: Acute (2) BMI 60.0-69.9, adult Status: Acute (3) Complication of gastric band procedure Status: Acute (4) Gastroesophageal reflux disease Status: Acute (5) Gastritis Status: Acute (6) Diabetes mellitus type 2, noninsulin dependent Status: Acute (7) Severe obstructive sleep apnea Status: Acute (8) Difficult intubation Status: Acute (9) Hypertensive heart disease Status: Acute Hospital Course: The patient is a 46-year-old female who reported complications from adjustable gastric band as well as gastroesophageal reflux disease. She underwent removal of her adjustable gastric band and was observed overnight for history of difficult intubation including obstructive sleep apnea. Overnight she did have hypoxic events which is now resolved this morning. She has been tolerating diet. Her reflux disease is now improved. Prior to discharge, she verbalized understanding of her discharge instructions with follow-up in the bariatric Center in 5 days. Abdominal binder was recommended for comfort. Pertinent Studies: None. Procedures: Laparoscopic band removal with intraoperative EGD Patient Condition at Discharge: Stable Plan - Discharge Summary Discharge Medication List Furosemide [Lasix] 20 mg PO DAILY 04/13/16 [History] Venlafaxine HCl [Effexor XR] 225 mg PO DAILY 04/13/16 [History] traMADol HCl [Ultram] 50 mg PO Q4H PRN #30 tab 04/14/16 [Rx] Ergocalciferol [Vitamin D2] 50,000 unit PO MO 10/27/16 [History] Ibuprofen [Motrin] 600 mg PO Q8HR PRN 10/27/16 [History] LORazepam [Ativan] 0.5 mg PO TID PRN 10/27/16 [History] Montelukast [Singulair] 10 mg PO HS 10/27/16 [History] Multivitamins, Thera [Multivitamin] 1 tab PO DAILY 10/27/16 [History] Gabapentin [Neurontin] 300 mg PO TID 11/08/16 [History] Olmesartan/Hydrochlorothiazide [Olmesartan-Hctz 40-25 mg Tab] 1 each PO DAILY [History] Follow up Appointment(s)/Referral(s): Diana Sandy MD [STAFF PHYSICIAN] - 01/19/17 (Patient to call and schedule follow up appointment.) Patient Instructions/Handouts: *Surgery [facility] - Laparoscopy Discharge Instructions, Exploratory Laparoscopy (DC), Abdominal Binder (GEN) Activity/Diet/Wound Care/Special Instructions: Lifting over 4 pounds in 4 weeks. Please were abdominal binder for comfort. Follow-up at the bariatric center regarding dietary guidelines. Discharge Disposition: HOME SELF-CARE
--- NOTE | 2017-01-15 16:40 | P.OP ---
Date of Procedure: 01/14/17 Description of Procedure: SURGEON: ASHLY PAYNE MD FACTORY HAND: NONE. PREOPERATIVE DIAGNOSES: 1. Morbid obesity due to excess calories. 2. Body mass index is 65.3. 3. Prior history of adjustable gastric band with intolerance. 4. Obstructive sleep apnea, untreated. 5. Glucose intolerance with diabetes. 6. Leukocytosis. 7. Hypertensive cardiomyopathy. 8. History of left ventricular hypertrophy. 9. Bilateral lower extremity edema. 10. Gastroesophageal reflux disease. 11. Osteoarthritis of the lower back. 12. Osteoarthritis of the bilateral hips. 13. Osteoarthritis of bilateral knees. 14. Congestive heart failure. POSTOPERATIVE DIAGNOSES: 1. Morbid obesity due to excess calories. 2. Body mass index is 65.3. 3. Prior history of adjustable gastric band with intolerance. 4. Obstructive sleep apnea, untreated. 5. Glucose intolerance with diabetes. 6. Leukocytosis. 7. Hypertensive cardiomyopathy. 8. History of left ventricular hypertrophy. 9. Bilateral lower extremity edema. 10. Gastroesophageal reflux disease. 11. Osteoarthritis of the lower back. 12. Osteoarthritis of the bilateral hips. 13. Osteoarthritis of bilateral knees. 14. Congestive heart failure. 15. Hepatomegaly with fatty liver disease. 16. Posterior gastric prolapse. 17. Gastritis, superficial, chronic. 18. Erosive esophagitis. 19. Difficult intubation requiring glide scope. 20. Dysphagia to textured foods. OPERATION: 1. Laparoscopic removal of adjustable gastric band and all components. 2. Intraoperative esophagogastroduodenoscopy with cold forceps biopsy of the antrum ANESTHESIA: General with 60 mL 0.25% Marcaine with epinephrine. ESTIMATED BLOOD LOSS: 5 mL SPECIMENS REMOVED: 1. Adjustable gastric band and components. 2. Gastric antrum. COMPLICATIONS: None. INDICATIONS: The patient is a 46-year-old female who presents with prior history of adjustable gastric band for over 20 years. She reports since placement of her band, she reports worsening gastroesophageal reflux disease over the last several years with her adjustable gastric band. Despite using medications her symptoms have progressed including with dysphagia. Benefits and risks of the procedure were described. Informed consent was obtained. DESCRIPTION: Patient was brought into the operating room, transferred a split- leg table. After general induction, the abdomen was prepped and draped in standard sterile fashion. Communication with anesthesia confirmed glide scope for difficult intubation. The abdomen was prepped and draped in standard sterile fashion using ChloraPrep as well as Ioban draping. Prior to incision, a timeout protocol was confirmed with the surgical team regarding patient's name, procedure to be performed, including preoperative medications. The xiphoid to the umbilicus was measured to be 35 cm. Her height is 5 foot 5 inches. A transverse incision was made approximately 20 cm distal to the xiphoid off to the left of the midline. A 0 degree 5 mm trocar entry was performed and entered into the peritoneal cavity. The abdomen was insufflated to 15 mmHg pressure, which she tolerated well. Diagnostic laparoscopy demonstrated fatty liver disease with severe hepatomegaly obstructing the view of her gastric band and midline diaphragmatic hiatus. Given the thickness of her subcutaneous tissue, the port was not easily palpated. A 15 mm port was placed along the left costal margin. Next a 5 mm port was placed at the left midclavicular line equidistant between the epigastric port and the left anterior axillary port. A medium-sized Theodore liver retractor was placed into the abdominal cavity and used to elevate the left lobe of the liver. The liver retractor was held in place using an iron international organizer. The patient was placed in steep reverse Trendelenburg position. The port was followed with its tubing to the actual band. The gastrohepatic ligament was actually scarred from her prior surgery. The posterior portion of the stomach appeared to prolapse around the band. Additionally, a thick fibrous band was found completely encircling the adjustable gastric band highly suspicious of ingrowth and erosion into the stomach. Using electro-Bovie cautery, the cicatrix of the band was incised and released without any gastrostomy. With the dense adhesions about the band, the band was cut. Closer inspection of the band was consistent the early generation high pressure Allergan lap band system of the early without its ALLERGAN label. The band was cut and divided using endoscopic curved scissors. The band was then freed. The band buckle was cut. The tubing was cut approximately 5 cm distal to the actual adapter. The band was removed and 2 pieces without injury to the stomach. An Endo Catch bag was used to remove the band through a 15 mm port. Hemostasis was excellent. I then went to the head of the bed to perform intraoperative esophagogastroduodenoscopy to evaluate for gastritis and any full thickness injury to the stomach. The patient was flattened. An Olympus gastroscope was passed from the posterior oropharynx down to the esophagus. At the squamocolumnar junction, 45 cm distal to the incisors was LA grade C erosive esophagitis, chronic changes. The stomach was entered and bile reflux of 200 mL was evacuated from the stomach. Chronic gastritis was found along the antrum without gastric ulcers or duodenitis or duodenal ulcers. Retroflexion of the scope confirmed a Hill grade 3 lower esophageal valve. No full-thickness erosion from the prior band was encountered. A cold forcep biopsy was used to obtain of the gastric antrum. The stomach was desufflated. The patient tolerated the endoscopic portion of the procedure well. I then went back to the patient's bedside after re- scrubbing. Next, attention was brought to the abdominal wall where the lap band port was buried in deep subcutaneous tissue. A transverse incision was made over the previous cicatrix over her port. This was done with a #11 blade. Skin was localized with anesthetic. Electro-Bovie cautery was used to enter the capsule around the port. The sutures were cut and the port was removed in total along with the tubing. Diagnostic laparoscopy demonstrated complete removal of all foreign body. All instruments and pneumoperitoneum were evacuated from the abdominal cavity. The port extraction site was hemostatic and irrigated with normal saline solution including 50 mL hydrogen peroxide. The incision was closed in layers using 3-0 Vicryl for the deep dermis and subcutaneous tissue. The 15 mm port was also closed in layers using using 3-0 Vicryl for the deep dermis and subcutaneous tissue. The rest of the incisions were reapproximated using 4-0 Monocryl in a subcuticular interrupted fashion. Dermabond was applied to the skin. Total of 60 mL 0.25% Marcaine with epinephrine was infiltrated in all wounds for postoperative analgesia. An Optiform antibiotic dressing was placed over the port site removal. At the end of the procedure, needle, sponge and instrument count was verified correct by the operating room surgical technician. The patient had tolerated the procedure well. She was extubated. The patient was transferred to Postanesthesia Care Unit in stable condition. FINDINGS: 1. Posterior gastric prolapse. 2. LA grade C erosive esophagitis chronic. 3. Hill grade 3 lower esophageal valve. 4. Chronic gastritis.
[2017-01-17] MEDS ORDERED: ERGOCALCIFEROL 50,000 UNIT CAP PO SCH (09:00)
== END 2017-01-15 14:05 | disposition home or self-care (01) ==
LOC: OR 09:25 → 3SUR 18:24 → OR 01-15 14:05
PROVIDERS: ATTEND Surgery Plastic and Reconstructive Surgery
DX: K95.09 Other complications of gastric band procedure (principal); K31.89 Other diseases of stomach and duodenum; K29.50 Unspecified chronic gastritis without bleeding; E66.01 Morbid (severe) obesity due to excess calories; Z68.44 Body mass index [BMI] 60.0-69.9, adult; G47.33 Obstructive sleep apnea (adult) (pediatric); K21.9 Gastro-esophageal reflux disease without esophagitis; J44.9 Chronic obstructive pulmonary disease, unspecified; J45.909 Unspecified asthma, uncomplicated; Z87.891 Personal history of nicotine dependence; F39 Unspecified mood [affective] disorder; I11.0 Hypertensive heart disease with heart failure; I50.9 Heart failure, unspecified; M79.3 Panniculitis, unspecified; F32.9 Major depressive disorder, single episode, unspecified; D72.829 Elevated white blood cell count, unspecified; M16.0 Bilateral primary osteoarthritis of hip; M17.0 Bilateral primary osteoarthritis of knee; M47.9 Spondylosis, unspecified; Z79.1 Long term (current) use of non-steroidal anti-inflammatories (NSAID); Z79.899 Other long term (current) drug therapy; E11.9 Type 2 diabetes mellitus without complications; K22.10 Ulcer of esophagus without bleeding
CPT/HCPCS: 94640; 88305; 80051; 82310; 83036; 82565; 83735; 84100; 84520; 85025; 88342; 43774; 43239; J2250; J0330; J1100; J2710; J0690 ×2; J2405; J2001; J1650 ×2; J3010; J1170; J2370; J2704; C9113

== ENCOUNTER → 2017-01-19 | Outpatient (CLI) | payer BC ==
[2017-01-19 17:06] VITALS: BP 171/102; RESP 14; TEMP 97.7; BMI 66.6
--- NOTE | 2017-01-19 17:50 | P.PN ---
Progress Note - Text To whom it may concern: Luz Elena Galloway is under my general surgical care. She will need extended recovery through January 24, 2017. Regards, Diana Sandy MD, FACS, FICS, Dip ABOM
--- NOTE | 2017-02-11 21:02 | P.PN ---
Progress Note - Text DATE OF SERVICE: 01/19/2017 CHIEF COMPLAINT: Follow up band removal. HISTORY OF PRESENT ILLNESS: Luz Elena Galloway is a 46-year-old female, status post removal of adjustable gastric band and all components on 01/14/2017. She is less than a week out. She reports resolution of gastroesophageal reflux disease. Her pain is well controlled. No reports of nausea and vomiting. At her height of 5 feet 5 inches, her ideal body weight is 149 pounds. Her initial weight 396 pounds. She has now gained weight to 400 pounds. Weight gain is 4 pounds since her last visit over a month ago. Body mass index has now increased to 66.6. She is 251 pounds overweight. PHYSICAL EXAM: VITAL SIGNS: 97.7, 14, 171/102, 16; 5 feet 5 inches, 400 pounds. Body mass index of 66.6. ABDOMEN: Dressing was discontinued, demonstrating no signs of infection, cellulitis and the wound is well-approximated. No reports of infection otherwise. MUSCULOSKELETAL: No clubbing, cyanosis or edema. CARDIOVASCULAR: Regular rate, regular rhythm. GENERAL: Well-developed female in no acute distress. HEENT: No scleral icterus. Extraocular movements grossly intact. Moist buccal mucosa. NECK: Supple without lymphadenopathy. CHEST: Nonlabored respirations with equal bilateral excursions. NEURO: No focal or lateralizing signs. Cranial nerves 2 through 12 grossly within normal limits. PSYCH: Appropriate affect. Alert and oriented to person, place, and time. ASSESSMENT: 1. Morbid obesity due to excess calories. 2. Body mass index of 66.6. 3. Status post removal of adjustable gastric band secondary to complications. 4. Uncontrolled hypertension. 5. Gastroesophageal reflux disease, improved. PLAN: 1. Recommend and agree with dietary surveillance and counseling with a bariatric dietitian, as she is at high risk for moderate weight gain in the interim. 2. Additional options for weight loss procedures were reviewed, for which she is electing for a Lucien-en-Y gastric bypass. 3. I have recommended full recovery prior to proceeding to her next course of surgery, as she is fairly high risk. 4. Per request of the patient, she would like to be re-evaluated in March 2017, which is fairly reasonable. 5. I have asked her to follow up any time sooner should she have any further concerns.
== END ==
LOC: BARWHC3 15:42
PROVIDERS: ATTEND Surgery Plastic and Reconstructive Surgery
DX: Z01.818 Encounter for other preprocedural examination (principal); E66.01 Morbid (severe) obesity due to excess calories; Z71.3 Dietary counseling and surveillance; Z98.84 Bariatric surgery status; Z68.44 Body mass index [BMI] 60.0-69.9, adult; Z48.815 Encounter for surgical aftercare following surgery on the digestive system
CPT/HCPCS: 99211

== ENCOUNTER → 2017-03-16 | Outpatient (CLI) | payer BC ==
[2017-03-16 14:16] LABS: Basophils # (A) 0.1 k/uL (0-0.2); Basophils % (A) 1 %; CH 30.8; CHCM 33.6; Eosinophils # (A) 0.1 k/uL (0-0.7); Eosinophils % (A) 1 %; HCT 47.3 % (34.0-46.0); HDW 2.67; HGB 15.5 gm/dL (11.4-16.0); Luc # (Auto) 0.31; Luc % (Auto) 3; Lymphocytes # (A) 2.5 k/uL (1.0-4.8); Lymphocytes % (A) 25 %; MCH 30.2 pg (25.0-35.0); MCHC 32.8 g/dL (31.0-37.0); MCV 92.1 fL (80.0-100.0); Mean Platelet Volume 7.1; Monocytes # (A) 0.5 k/uL (0-1.0); Monocytes % (A) 5 %; Neutrophils # (A) 6.8 k/uL (1.3-7.7); Neutrophils % (A) 66 %; RBC 5.13 m/uL (3.80-5.40); RDW 14.9 % (11.5-15.5); WBC 10.3 k/uL (3.8-10.6); WBC (Perox) 10.31
[2017-03-16 14:20] LABS: ALT 52 U/L (9-52); AST 28 U/L (14-36); Alkaline Phosphatase 107 U/L (38-126); Anion Gap 10 mmol/L; Blood Urea Nitrogen 18 mg/dL (7-17); Calcium 9.9 mg/dL (8.4-10.2); Carbon Dioxide 26 mmol/L (22-30); Chloride 104 mmol/L (98-107); Glucose 116 mg/dL (74-99); Non-African American GFR(MDRD) >60 (>60 ml/min/1.73 sqM); Potassium 4.7 mmol/L (3.5-5.1); Sodium 140 mmol/L (137-145); Total Bilirubin 0.5 mg/dL (0.2-1.3); Total Protein 7.7 g/dL (6.3-8.2)
== END | disposition home or self-care (01) ==
LOC: LABPAT 13:03
PROVIDERS: ATTEND Surgery Plastic and Reconstructive Surgery
DX: Z01.812 Encounter for preprocedural laboratory examination (principal)
CPT/HCPCS: 80053; 85025

== ENCOUNTER → 2017-03-30 | Outpatient (CLI) | payer BC ==
[2017-03-30 14:34] VITALS: BP 132/82; PULSE 106; TEMP 98; BMI 67.1
--- NOTE | 2017-04-19 17:30 | P.PN ---
Progress Note - Text DATE OF SERVICE: 03/30/2017 CHIEF COMPLAINT: Bariatric assessment. HISTORY OF PRESENT ILLNESS: Luz Elena Galloway is a 46-year-old female who comes in with long-standing history of morbid obesity. At a height of 5 feet, 5 inches, she comes in weighing 403 pounds. [place] body weight is 149 pounds. She is 254 pounds overweight. Her body mass is 67.2. She had an adjustable gastric band placed in 2007 with subsequent removal 01/14/2017 from intolerance to her fills as well as gastric prolapse. Since her band removal, she has gained another 7 pounds in 2 months. Her personal goal is to get under 200 pounds. She has developed comorbidities including congestive heart failure, diabetes type 2, obstructive sleep apnea, osteoarthritis, chronic panniculitis from her obesity. Now she presents for surgical intervention for a gastric bypass. PAST MEDICAL HISTORY: 1. Super morbid obesity. 2. Depression. 3. Chronic obstructive pulmonary disease. 4. Hypertension. 5. Panniculitis. 6. Obstructive sleep apnea. 7. Congestive heart failure. 8. Diabetes type 2, [id number]-[id number]. PAST SURGICAL HISTORY: 1. . 2. Cholecystectomy. 3. Adjustable gastric band placement, 2007. 4. Adjustable gastric band removal, 01/14/2017. MEDICATIONS: 1. Multivitamin. 2. Motrin. 3. Ultram. 4. Effexor. 5. Singulair. 6. Lasix. 7. Vitamin D. 8. Ativan. 9. Amiodarone. 10. Metformin. ALLERGIES: Denies. SOCIAL HISTORY: No active alcohol use. She is a former tobacco user. FAMILY HISTORY: Pertinent for diabetes including morbid obesity. REVIEW OF SYSTEMS: CONSTITUTIONAL: At a height of 5 feet, 5 inches, she comes in weighing 403 pounds. [place] body weight is 149 pounds. She is 254 pounds overweight. Her body mass is 67.2. HEENT: Wears glasses. No troubles with hearing. Denies dysphagia. ENDOCRINE: Denies any known history of thyroid disorders. His diabetes type 2. RESPIRATORY: Has obstructive sleep apnea. No recent pneumonia. CARDIOVASCULAR: Has hypertension including prior history of heart disease. GASTROINTESTINAL: Reports intermittent gastroesophageal reflux disease. No reports of diarrhea. MUSCULOSKELETAL: Has osteoarthritis of the lower back including bilateral hips and knees. NEURO: No reports of stroke or seizure disorders. PSYCH: Has depression. No suicidal ideation. HEMATOLOGIC: Denies any easy bruising or bleeding. PHYSICAL EXAM: VITAL SIGNS: 5 feet 5 inches, 403 pounds. Body mass index of 67.2 Vital Signs Temp 98.0 F 03/30/17 14:28 Pulse 106 H 03/30/17 14:28 Resp BP 132/82 03/30/17 14:28 Pulse Ox GENERAL: Well-developed female in no acute distress. HEENT: No scleral icterus. Extraocular movements grossly intact. Moist buccal mucosa. NECK: Supple without lymphadenopathy. CHEST: Nonlabored respirations with equal bilateral excursions. CARDIOVASCULAR: Tachycardic. ABDOMEN: Soft, nontender, nondistended. MUSCULOSKELETAL: No clubbing , however, 2+ bilateral pitting edema. NEURO: No focal or lateralizing signs. Cranial nerves 2 through 12 grossly within normal limits. PSYCH: Appropriate affect. Alert and oriented to person, place, and time. SKIN: Hyperpigmentation along the neck base. Also, moderate pannus, with hyperpigmentation and erythema consistent with panniculitis. LABS: Hemoglobin A1c elevated at 6.4. ASSESSMENT: 1. Morbid obesity due to excess calories. 2. Body mass index is 67.2. 3. Prior history of adjustable gastric band with intolerance. 4. Obstructive sleep apnea. 5. Diabetes type 2, [id number]-ivneifpxx. 6. Leukocytosis. 7. Hypertensive cardiomyopathy. 8. History of left ventricular hypertrophy. 9. Bilateral lower extremity edema. 10. Gastroesophageal reflux disease. 11. Osteoarthritis of the lower back. 12. Osteoarthritis of the bilateral hips. 13. Osteoarthritis of bilateral knees. 14. Congestive heart failure. 15. Hepatomegaly with fatty liver disease. 16. Posterior gastric prolapse. 17. Gastritis, superficial, chronic. 18. Erosive esophagitis. 19. Difficult intubation requiring glide scope. 20. Chronic panniculitis. PLAN: 1. She has completed her bariatric profile to proceed with a gastric bypass. However, she is at moderately increased risk given her body habitus including previous bariatric surgery. 2. [place] bariatric surgery collaborative data and calculator was reviewed in comparison among a sleeve, band and gastric bypass. She is at moderately increased risk for complications including stricture, leak, bleeding, infection. 3. A second generation 8-page bariatric consent form was reviewed in detail with all questions addressed. 4. Inpatient hospitalization advised over 2 nights. 5. CPAP therapy while inpatient. 6. DVT prophylaxis. 7. Antibiotic prophylaxis. 8. Possibility of postoperative recovery in the intensive care unit was also described. 9. She has been undergoing a 2 week low calorie high protein diet to address hepatomegaly. 10. As she is a revisional procedure, robotic-assisted approach was reviewed.
== END | disposition home or self-care (01) ==
LOC: BARWHC3 13:35
PROVIDERS: ATTEND Surgery Plastic and Reconstructive Surgery
DX: Z48.815 Encounter for surgical aftercare following surgery on the digestive system (principal); E66.01 Morbid (severe) obesity due to excess calories; G47.33 Obstructive sleep apnea (adult) (pediatric); D72.829 Elevated white blood cell count, unspecified; E11.9 Type 2 diabetes mellitus without complications; I11.9 Hypertensive heart disease without heart failure; I11.0 Hypertensive heart disease with heart failure; I50.9 Heart failure, unspecified; M47.816 Spondylosis without myelopathy or radiculopathy, lumbar region; M16.0 Bilateral primary osteoarthritis of hip; M17.0 Bilateral primary osteoarthritis of knee; K29.70 Gastritis, unspecified, without bleeding; K31.89 Other diseases of stomach and duodenum; Z79.4 Long term (current) use of insulin; Z79.84 Long term (current) use of oral hypoglycemic drugs; Z79.899 Other long term (current) drug therapy
CPT/HCPCS: 86850; 86900; 86901; 99211

== ENCOUNTER 2017-04-04 07:30 | Inpatient (IN) | payer BC ==
--- NOTE | 2017-04-04 06:45 | P.GSHP ---
History of Present Illness H&P Date: 04/04/17 CHIEF COMPLAINT: Morbid obesity. HISTORY OF PRESENT ILLNESS: Luz Elena Galloway is a 46-year-old female who initially presented to the program in October of 2016. She reports her highest weight was 396 pounds. Her ideal body weight is 149 pounds. She comes in today weighing 396 pounds. She is 247 pounds overweight. She had a gastric band removal approximately 2+ months ago without complications. essentially unchanged. She has developed additional comorbidities including hypertension, obstructive sleep apnea, diabetes type 2, hyperlipidemia. Now she presents for further evaluation regarding revision to a gastric bypass. PAST MEDICAL HISTORY: 1. Super morbid obesity. 2. Depression. 3. Chronic obstructive pulmonary disease. 4. Hypertension. 5. Panniculitis. 6. Sleep apnea, untreated. PAST SURGICAL HISTORY: 1. . 2. Cholecystectomy. 3. Echocardiogram completed 11/29/2016. 4. Adjustable gastric band removal. MEDICATIONS: 1. Multivitamin. 2. Motrin. 3. Ultram. 4. Effexor. 5. Singulair. 6. Lasix. 7. Vitamin D. 8. Ativan. 9. Amiodarone. ALLERGIES: Denies. SOCIAL HISTORY: No active alcohol use. She is a former tobacco user. FAMILY HISTORY: Pertinent for diabetes including morbid obesity. REVIEW OF SYSTEMS: CONSTITUTIONAL: [place] body weight of 149 pounds. She comes at her highest weight of 396 pounds. She is 247 pounds overweight. Body mass index is unchanged. RESPIRATORY: History of obstructive sleep apnea, untreated. ENDOCRINE: New diagnosis of diabetes type 2, untreated. HEENT: Wears glasses. No troubles with hearing. Denies dysphagia. CARDIOVASCULAR: Has hypertension including prior history of heart disease. As a result, she is on amiodarone as well. GASTROINTESTINAL: Reports intermittent gastroesophageal reflux disease. She has a history of adjustable gastric band as well. The gallbladder has already been removed. She reports constipation. No reports of blood in her stools. MUSCULOSKELETAL: Has osteoarthritis of the lower back including bilateral hips and knees. NEURO: No reports of stroke or seizure disorders. PSYCH: No reports of depression or suicidal ideation. HEMATOLOGIC: Denies any easy bruising or bleeding. DIETARY HISTORY: She is tried cabbage diet, Atkins, My Fitness Pal including Weight Watchers. PHYSICAL EXAM: VITAL SIGNS: 98.3, 114, 16, 132/83; 5 foot 5 and 396 pounds. Body mass index is 66. CARDIOVASCULAR: Regular rate. Regular rhythm. ABDOMEN: Soft, nontender, nondistended. Hyperpigmentation of the lower abdomen consistent with panniculitis. GENERAL: Well-developed female in no acute distress. HEENT: No scleral icterus. Extraocular movements grossly intact. Moist buccal mucosa. NECK: Supple without lymphadenopathy. CHEST: Nonlabored respirations with equal bilateral excursions. MUSCULOSKELETAL: No clubbing , however, 1+ bilateral pitting edema. NEURO: No focal or lateralizing signs. Cranial nerves 2 through 12 grossly within normal limits. PSYCH: Appropriate affect. Alert and oriented to person, place, and time. EKG demonstrated right atrial enlargement. ASSESSMENT: 1. Morbid obesity due to excess calories. 2. Body mass index is 66. 3. Prior history of adjustable gastric band with intolerance. 4. Obstructive sleep apnea, untreated. 5. Glucose intolerance with diabetes. 6. Leukocytosis. 7. Hypertensive cardiomyopathy. 8. History of left ventricular hypertrophy. 9. Bilateral lower extremity edema. 10. Gastroesophageal reflux disease. 11. Osteoarthritis of the lower back. 12. Osteoarthritis of the bilateral hips. 13. Osteoarthritis of bilateral knees. 14. Congestive heart failure. 15. History of complications from adjustable gastric band. 16. Panniculitis. 17. Diabetes type 2, untreated. PLAN: 1. We reviewed her surgical options. She is looking into a Lucien-en-Y gastric bypass. His second-generation bariatric consent form was reviewed in detail including benefits of risk of her gastric bypass. She is at higher risk for leaks as well as postoperative stricture. 2. [place] bariatric surgery collaborative outcomes calculator was reviewed for all procedures. 3. Will need CPAP machine for hospitalization. 4. DVT prophylaxis. 5. Antibiotic prophylaxis. 6. Inpatient hospitalization for 2 nights discussed. 7. Surgical approach including robotic versus laparoscopic gastric bypass with possible sleeve gastrectomy were described. 8. He has undergone a 2 week high-protein low caloric diet for preoperative assessment. Past Medical History Past Medical History: Diabetes Mellitus, GERD/Reflux, Hypertension, Sleep Apnea/ CPAP/BIPAP Additional Past Medical History / Comment(s): Neuropathy LT FOOT/HAND. Edema BLE. Brain Lesions, BEING MONITORED. Anemia. Migraines. HAS CPAP. History of Any Multi-Drug Resistant Organisms: None Reported Past Surgical History: Bariatric Surgery, Section, Cholecystectomy, Hysterectomy, Tubal Ligation Additional Past Surgical History / Comment(s): lap band (removed 01/14/17), oopherectomy, C-S X3. Past Anesthesia/Blood Transfusion Reactions: No Reported Reaction Smoking Status: Former smoker - Past Family History Mother Family Medical History: Cancer Father Family Medical History: Hypertension Medications and Allergies Home Medications Medication Instructions Recorded Confirmed Type Furosemide [Lasix] 20 mg PO DAILY 04/13/16 03/31/17 History Venlafaxine HCl [Effexor XR] 225 mg PO DAILY 04/13/16 03/31/17 History Ergocalciferol [Vitamin D2] 50,000 unit PO MO 10/27/16 03/31/17 History Ibuprofen [Motrin] 600 mg PO Q8HR PRN 10/27/16 03/31/17 History LORazepam [Ativan] 0.5 mg PO TID PRN 10/27/16 03/31/17 History Montelukast [Singulair] 10 mg PO HS PRN 10/27/16 03/31/17 History Gabapentin [Neurontin] 300 mg PO TID 11/08/16 03/31/17 History Olmesartan/Hydrochlorothiazide 1 each PO DAILY 01/12/17 03/31/17 History [Olmesartan-Hctz 40-25 mg Tab] Allergies Allergy/AdvReac Type Severity Reaction Status Date / Time No Known Allergies Allergy Verified 03/31/17 10:45
[~2017-04-04 07:30] MED LIST changes: +ACETAMINOPHEN IV (For NPO) 1,000 MG in EMPTY BAG 1 BAG IVPB ONE; +ALVIMOPAN 12 MG CAPSULE PO ONE; +CHLORHEXIDINE GLUCONATE 15 ML CUP MUCOUS MEM ONE; +ENOXAPARIN 40 MG/0.4 ML SYRINGE SQ STA; -MIDAZOLAM 2 MG/2 ML VIAL IV PRN; +PANTOPRAZOLE 40 MG/10 ML VIAL IV STA; -SCOPOLAMINE 1.5MG/72HR PATCH TRANSDERM ONE
[2017-04-04] MEDS: LACTATED RINGERS 1,000 ML IV SCH ×3 (09:29→10:52)
[2017-04-04] MEDS ORDERED: LIDOCAINE 1% 20 ML VIAL (10MG/ML) FOR IV START INTRADERMA ONE ×2 (09:29→09:53)
[2017-04-04 09:32] LABS: Glucose,Whole Blood 122 mg/dL (75-99)
[2017-04-04] MEDS ORDERED: MIDAZOLAM 2 MG/2 ML VIAL IM ONE (10:18)
[2017-04-04] MEDS ORDERED: SUCCINYLCHOLINE CHLORIDE VIAL 200 MG/10 ML VIAL IV ONE (10:55)
[2017-04-04] MEDS ORDERED: ROCURONIUM BROMIDE 10 MG/ML 10 ML VIAL IV ONE (10:55)
[2017-04-04] MEDS ORDERED: PROPOFOL 10 MG/ML 20 ML VIAL IV ONE (10:55)
[2017-04-04] MEDS ORDERED: ONDANSETRON 4 MG/2 ML VIAL ONE (10:55)
[2017-04-04] MEDS ORDERED: MANNITOL 25% 12.5 GM/50 ML VIAL IV ONE (10:55)
[2017-04-04] MEDS ORDERED: VECURONIUM 10 MG VIAL IV ONE (10:55)
[2017-04-04] MEDS ORDERED: FUROSEMIDE 10 MG/ML 2 ML VIAL ONE (10:55)
[2017-04-04] MEDS ORDERED: DEXAMETHASONE SOD PHOS (MDV) 100 MG/10 ML VIAL ONE (10:55)
[2017-04-04] MEDS ORDERED: LIDOCAINE 1% INJ 10MG/ML (20 ML MDV) ONE (10:55)
[2017-04-04] MEDS ORDERED: NEOSTIGMINE 1 MG/ML 10 ML VIAL ONE (10:55)
[2017-04-04] MEDS ORDERED: fentaNYL (PF) 50 MCG/ML 2 ML AMP ONE (10:55)
[2017-04-04] MEDS ORDERED: MIDAZOLAM 2 MG/2 ML VIAL ONE (10:55)
[2017-04-04] MEDS ORDERED: ePHEDrine 50 MG/ML 1 ML AMP ONE (10:55)
[2017-04-04] MEDS ORDERED: PHENYLEPHRINE-0.9% NACL SYG 1 MG/10 ML SYRINGE ONE (10:55)
[2017-04-04] MEDS ORDERED: GLYCOPYRROLATE 0.2 MG/ML 2 ML VIAL ONE (10:55)
[2017-04-04] MEDS ORDERED: HYDROmorphone (PF) 1 MG/ML ONE (10:55)
[2017-04-04] MEDS ORDERED: LACTATED RINGERS 1,000 ML IV ONE ×4 (12:07→18:00)
[2017-04-04] MEDS ORDERED: BUPIVACAIN-EPI 0.25%-1:200,000 30 ML VIAL SQ ONE (12:34)
[2017-04-04] MEDS ORDERED: ONDANSETRON 4 MG/2 ML VIAL IVP ONE (19:36)
[2017-04-04] MEDS ORDERED: NALOXONE 0.4 MG/ML 1 ML VIAL IV PRN (19:42)
[2017-04-04] MEDS ORDERED: PROMETHAZINE INJ 25 MG/ML 1 ML VIAL IVPB ONE (19:43)
[2017-04-04 19:57] LABS: Glucose,Whole Blood 145 mg/dL (75-99)
--- NOTE | 2017-04-04 20:01 | P.PCN ---
Date of Procedure: 04/04/17 Preoperative Diagnosis: Morbid obesity Postoperative Diagnosis: Morbid obesity, severe lower abdominal adhesions from previous , adhesions along the superior pole of stomach from previous adjustable gastric band, hepatomegaly severe, fatty liver disease Procedure(s) Performed: Robotic-assisted laparoscopic Lucien-en-Y gastric bypass, 100 cm limb, intraoperative esophagogastrojejunoscopy, laparoscopic lysis of adhesions Implants: Anesthesia: GETA, local (90 mL) Surgeon: Diana Sandy Estimated Blood Loss (ml): 50 Pathology: none sent Condition: stable Disposition: floor Indications for Procedure: Operative Findings: 1. Lipodystrophy of the abdominal wall including of the omentum and a moderate complexity to the case. 2. Severe hepatomegaly from severe fatty liver disease adding severe complexity to the case, over 3-1/2 hours. 3. Adhesions of the lower pelvis from prior adding additional 2 hours of lysis of adhesions. 4. Initial gastric port forming a gastric diverticulum along the lesser curvature of the stomach revised with a gastric pouch involving the proximal stomach. 5. Bypass performed using 100 cm limb secondary to increased tension identified at 150 cm. 6. Barnes defect and jejunojejunostomy defect obliterated by moderate intra- abdominal fat. 7. Leak test negative, gastrojejunal anastomosis patent and completely hemostatic. 8. Red Will closure not used to avoid risk or injury to small bowel. 9. Drain placed as moderate irrigation over 1 L within the abdomen, left upper quadrant using #19 round drain placed anterior to the gastrojejunostomy anastomosis. 10. Robotic approach completed for jejunojejunostomy. 11. Port placement identified after measuring xiphoid to umbilicus of 40 cm length. 12. Ports placed at 25 cm distal to xiphoid and 10-15 cm laterally from each other. 13. Robotic stapler placed at the right side of the patient. 14. Master Scheduler port placed 10 cm inferior lateral to camera port and 8 cm medial and inferior to stapler. 15. Multiple robotic assistants used at least 3 throughout the case. Description of Procedure:
[2017-04-04] MEDS: HYDROmorphone 1 MG/ML 1 ML SYRINGE IVP PRN ×2 (21:10→23:35)
[2017-04-04] MEDS: ALBUTEROL NEBULIZED 2.5 MG/3 ML INHALATION SCH (21:20)
[2017-04-04] MEDS: 0.9% NACL WITH KCL 20 MEQ/L 1,000 ML IV SCH (22:19)
[2017-04-04] MEDS: ONDANSETRON 4 MG/2 ML VIAL IVP PRN (22:42)
[2017-04-04 23:49] LABS: Glucose,Whole Blood 150 mg/dL (75-99)
[2017-04-05] MEDS: AMPICILLIN-SULBACTAM 3 GM in SODIUM CHLORIDE 0.9% 100 ML IVPB SCH ×2 (00:18→06:03)
[2017-04-05] MEDS: INSULIN LISPRO (humaLOG) 300 UNIT/3 ML VIAL SQ SCH ×4 (00:26→18:27)
[2017-04-05] MEDS: LORazepam 2 MG/ML SYRINGE IV PRN ×3 (00:56→14:13)
[2017-04-05] MEDS: HYDROmorphone 1 MG/ML 1 ML SYRINGE IVP PRN ×7 (03:21→22:21)
[2017-04-05] MEDS: 0.9% NACL WITH KCL 20 MEQ/L 1,000 ML IV SCH (04:48)
[2017-04-05 06:00] LABS: Glucose,Whole Blood 143 mg/dL (75-99)
[2017-04-05 07:28] LABS: Anion Gap 11 mmol/L; Blood Urea Nitrogen 11 mg/dL (7-17); Calcium 8.6 mg/dL (8.4-10.2); Carbon Dioxide 21 mmol/L (22-30); Chloride 107 mmol/L (98-107); Magnesium 1.8 mg/dL (1.6-2.3); Non-African American GFR(MDRD) >60 (>60 ml/min/1.73 sqM); Phosphorous 3.2 mg/dL (2.5-4.5); Potassium 4.5 mmol/L (3.5-5.1); Sodium 139 mmol/L (137-145)
[2017-04-05 07:30] LABS: Basophils % (A) 0 %; CH 30.9; CHCM 31.8; Eosinophils % (A) 0 %; HCT 48.2 % (34.0-46.0); HDW 2.47; HGB 15.5 gm/dL (11.4-16.0); Luc # (Auto) 0.23; Luc % (Auto) 2; Lymphocytes # (A) 1.1 k/uL (1.0-4.8); Lymphocytes % (A) 9 %; MCH 31.3 pg (25.0-35.0); MCHC 32.1 g/dL (31.0-37.0); Mean Platelet Volume 6.8; Monocytes # (A) 0.8 k/uL (0-1.0); Monocytes % (A) 6 %; Neutrophils # (A) 10.6 k/uL (1.3-7.7); Neutrophils % (A) 83 %; RBC 4.94 m/uL (3.80-5.40); RDW 15.1 % (11.5-15.5); WBC 12.7 k/uL (3.8-10.6); WBC (Perox) 12.77
[2017-04-05 07:33] LABS: MCV 97.6 fL (80.0-100.0)
[2017-04-05] MEDS ORDERED: 0.9% NACL WITH KCL 20 MEQ/L 1,000 ML IV SCH (08:00)
[2017-04-05] MEDS: PANTOPRAZOLE 40 MG/10 ML VIAL IV SCH (08:15)
[2017-04-05] MEDS: ENOXAPARIN 40 MG/0.4 ML SYRINGE SQ SCH ×2 (08:15→22:22)
[2017-04-05] MEDS: FUROSEMIDE 10 MG/ML 2 ML VIAL IV SCH (08:15)
[2017-04-05] MEDS: ALBUTEROL NEBULIZED 2.5 MG/3 ML INHALATION SCH (08:26)
--- NOTE | 2017-04-05 08:28 | P.PN ---
Progress Note - Text Patient seen and evaluated this evening. at bedside. Length of operation including operative findings were described including moderate intra- abdominal adhesions, moderate adhesions along the superior pole of the stomach as well as gastric diverticulum. She will be strict nothing by mouth status exception of ice chips. She also complains of left shoulder discomfort. She also complains of bilateral leg tingling. She denies any abdominal pain. Recommend consultation with hospitalist including pulmonary. We will obtain cardiac enzymes to evaluate left shoulder pain as well.
[2017-04-05 09:26] LABS: Hemoglobin A1C 6.3 % (4.2-6.1)
--- NOTE | 2017-04-05 10:11 | XR ---
EXAMINATION TYPE: XR chest 1V portable DATE OF EXAM: 04/05/2017 HISTORY: Hypoxemia. REFERENCE: Previous study dated 11/08/2016. FINDINGS: The heart is mildly enlarged. The lungs are clear. Pleural spaces are clear. IMPRESSION: MILD CARDIOMEGALY.
[2017-04-05 11:51] LABS: Glucose,Whole Blood 128 mg/dL (75-99)
[2017-04-05] MEDS: IPRATROPIUM-ALBUTEROL 3 ML NEB INHALATION SCH ×3 (12:15→20:28)
--- NOTE | 2017-04-05 13:23 | P.PN ---
Subjective 46-year-old female seen and examined. Currently sitting up in a chair this morning. Patient continues to report having left shoulder discomfort. Patient has adequate range of motion to the left arm. Adequate grasp to the left arm. Patient denies chest pain when questioning. Patient is strictly nothing by mouth except for ice chips. Patient is postop Robotic-assisted laparoscopic Lucien-en-Y gastric bypass, 100 cm limb, intraoperative esophagogastrojejunoscopy , laparoscopic lysis of adhesions Objective - Vital Signs Vital signs: Vital Signs Temp 98.1 F 04/05/17 07:00 Pulse 130 H 04/05/17 12:30 Resp 14 04/05/17 08:00 BP 128/84 04/05/17 07:00 Pulse Ox 89 L 04/05/17 09:05 Intake & Output 04/04/17 04/05/17 04/05/17 18:59 06:59 18:59 Intake Total 5400 50 Output Total 740 1850 650 Balance 4660 -1800 -650 Weight 179.2 kg Intake: IV 5400 50 Output: Drainage 20 Abdomen 20 Urine 690 1750 650 Uretheral (Kan) 200 Estimated Blood Loss 50 80 Other: Voiding Method Indwelling Catheter - Exam Physical exam 46-year-old female sitting up in a chair pleasant cooperative oriented 3 talkative Lungs essentially clear sets currently on 3 L are 96% room air 89% Heart S1-S2 audible heart rate in the 120s denying chest pain Abdomen obese soft nontender surgical sites dry no redness HARITHA drain in place tolerating ice chips no stool no difficulty in urinating indwelling Kan catheter just removed Extremities trace pedal edema bilaterally - Labs CBC & Chem 7: 04/05/17 06:36 04/05/17 06:36 Labs: Abnormal Lab Results - Last 24 Hours (Table) 04/04/17 04/04/17 04/05/17 Range/Units 19:53 23:47 05:58 WBC (3.8-10.6) k/uL Hct (34.0-46.0) % Neutrophils # (1.3-7.7) k/uL Carbon Dioxide (22-30) mmol/L POC Glucose (mg/dL) 145 H 150 H 143 H (75-99) mg/dL Hemoglobin A1c (4.2-6.1) % 04/05/17 04/05/17 04/05/17 Range/Units 06:36 06:36 06:36 WBC 12.7 H (3.8-10.6) k/uL Hct 48.2 H (34.0-46.0) % Neutrophils # 10.6 H (1.3-7.7) k/uL Carbon Dioxide 21 L (22-30) mmol/L POC Glucose (mg/dL) (75-99) mg/dL Hemoglobin A1c 6.3 H (4.2-6.1) % 04/05/17 Range/Units 11:30 WBC (3.8-10.6) k/uL Hct (34.0-46.0) % Neutrophils # (1.3-7.7) k/uL Carbon Dioxide (22-30) mmol/L POC Glucose (mg/dL) 128 H (75-99) mg/dL Hemoglobin A1c (4.2-6.1) % Assessment and Plan Plan: Impression Super morbid obesity BMI 61 Severe lower abdominal adhesions from previous Fatty liver disease Robotic-assisted laparoscopic Lucien-en-Y gastric bypass, 100 cm limb, intraoperative esophagogastrojejunoscopy, laparoscopic lysis of adhesions History of neuropathy Anxiety depressive disorder nonspecified Plan Continue postop surgical care as ordered Nothing by mouth except for ice chips only Follow-up on pending labs DVT and GI prophylaxis Increase activity to the level of tolerance Further recommendations pending The above dictated assessment and findings were discussed with dr Du Lopez and the plan of care have been dictated as directed. Lois Marcus nurse practitioner acting as a scribe for Du
[2017-04-05] MEDS: MAGNESIUM SULFATE-D5W PMX 1 GM in DEXTROSE/WATER 1 100ML.BAG IVPB SCH ×2 (15:46→17:23)
[2017-04-05 17:29] LABS: Glucose,Whole Blood 132 mg/dL (75-99)
--- NOTE | 2017-04-05 20:17 | CONS ---
DATE OF CONSULTATION: 04/05/2017 REASON FOR CONSULTATION: Medical management request with Dr. Sandy. CONSULTATION: This is a very pleasant 46-year-old patient of Dr. Love with chronic stable medical conditions include diabetes, GERD, hypertension, sleep apnea, depression, and peripheral neuropathy from diabetes. Patient has undergone robotic assisted laparoscopic Lucien-en-Y gastric bypass, intraoperative esophagogastrojejunoscopy, laparoscopic lysis of adhesions. Patient has not passed any flatus, lying in bed, nausea, has been n.p.o. is at the bedside. Feels weak and tired. REVIEW OF SYSTEMS: CONSTITUTIONAL: Tired. HEENT: None. RESPIRATORY: None. CARDIOVASCULAR: None. GASTROINTESTINAL: Heartburn. GENITOURINARY: None. MUSCULOSKELETAL: None. DERMATOLOGIC: None. HEMATOLOGIC: None. LYMPHATICS: None. PSYCHIATRY: History of depression, controlled. NEUROLOGICAL: Numbness and tingling in the feet. PAST HISTORY: Diabetes, GERD, hypertension, obstructive sleep apnea, depression, neuropathy. PAST SURGICAL HISTORY: Bariatric surgery, , cholecystectomy, hysterectomy, tubal ligation, lap band was removed in December of 2016, oophorectomy. PSYCH HISTORY: Anxiety, depression. SOCIAL HISTORY: Patient smoked for about 20 years about half pack a day; stopped smoking about 2 months ago. Patient works as a assistant department manager at [employer], . FAMILY HISTORY: History of liver cancer. HOME MEDICATIONS: 1. Ultram 50 mg q.4 p.r.n. 2. Glucophage 500 mg p.o. daily. 3. Effexor-XR 225 mg p.o. daily. 4. Olmesartan hydrochlorothiazide 40/25 one tablet p.o. daily. 5. ( ) 10 mg at p.r.n. 6. Ativan 0.5 mg p.o. t.i.d. p.r.n. 7. Motrin 700 mg q.8 p.r.n. 8. Neurontin 300 mg p.o. t.i.d. 9. Lasix 20 mg p.o. daily. 10. Vitamin D2, 50,000 units p.o. Tuesday. ALLERGIES: None. On examination, temperature 97.4, pulse 120, respiration 18, blood pressure 170/87, pulse ox 93% on 3-L. GENERAL APPEARANCE: Well built, BMI 61.9, lying in bed, tired appearing. EYES: Pupils equal. Conjunctivae normal. HEENT: External appearance of nose and ears normal. Oral cavity normal. NECK: Short, thick. JVD unable to assess. Mass not palpable. RESPIRATORY: Effort increased. LUNGS: Distant breath sounds. CARDIOVASCULAR: Heart sounds muffled. No edema. ABDOMEN: Tender, soft. Liver and spleen not palpable. LYMPHATIC: No lymph nodes palpable in the neck or axillae. PSYCHIATRY: Alert and oriented x3. Mood and affect slightly anxious -appearing. NEUROLOGICAL: Pupils equal. Cranial nerves grossly intact. Power and sensation grossly intact. INVESTIGATIONS: White count 12.7, hemoglobin 15.5. Potassium 4.5, BUN and creatinine normal. ASSESSMENT: 1. Lucien-en-Y gastric bypass surgery. 2. Diabetes mellitus type 2, oral hypoglycemic. 3. Gastroesophageal reflux disease. 4. Essential hypertension. 5. Obstructive sleep apnea, uses CPAP machine. 6. Depression and anxiety, not otherwise specified. 7. Morbid obesity. Body mass index 61.9. PLAN: Patient's home medications will be resumed. Accu-Cheks will be followed. Patient informed me Dr. Sandy did tell the patient she cannot take any pills except in liquid form. She is concerned about Effexor-XR. Will have psychiatrist reviewed that. Patient can go on a small dose of Lantus to control sugars for now. Care was discussed with the patient. Patient has Venodyne boots for DVT prophylaxis and also Lovenox. Thank you, Dr. Sandy.
[2017-04-05] MEDS: BUDESONIDE 1 MG/2 ML NEBU INHALATION SCH (20:28)
[2017-04-05] MEDS: INSULIN GLARGINE 100 UNIT/ML 10 ML VIAL SQ SCH (22:28)
[2017-04-06 00:08] LABS: Glucose,Whole Blood 138 mg/dL (75-99)
[2017-04-06] MEDS: INSULIN LISPRO (humaLOG) 300 UNIT/3 ML VIAL SQ SCH ×4 (00:31→17:57)
[2017-04-06] MEDS: HYDROmorphone 1 MG/ML 1 ML SYRINGE IVP PRN ×6 (02:22→21:47)
[2017-04-06] MEDS: LACTATED RINGERS 1,000 ML IV SCH (05:08)
[2017-04-06 06:02] LABS: Glucose,Whole Blood 120 mg/dL (75-99)
[2017-04-06] MEDS: PANTOPRAZOLE 40 MG/10 ML VIAL IV SCH (07:42)
[2017-04-06] MEDS: FUROSEMIDE 10 MG/ML 2 ML VIAL IV SCH (07:42)
[2017-04-06] MEDS: ENOXAPARIN 40 MG/0.4 ML SYRINGE SQ SCH ×2 (07:42→21:48)
[2017-04-06] MEDS: BUDESONIDE 1 MG/2 ML NEBU INHALATION SCH ×2 (08:27→20:22)
[2017-04-06] MEDS: IPRATROPIUM-ALBUTEROL 3 ML NEB INHALATION SCH ×4 (08:27→20:22)
--- NOTE | 2017-04-06 09:43 | P.PN ---
Subjective Progress note dated 04/06/2017 46-year-old female status post robotic-assisted laparoscopic Lucien-en-Y gastric bypass. The patient seemed be doing relatively well. From the breathing standpoint much better. She did bring home home CPAP device to the hospital for her sleep apnea syndrome. The patient's breathing much easier. Able to walk a bit. We do have a working hourly on the incentive spirometer. I told her respiratory was very important. Denies any cough or wheezing. No phlegm production. No chest pain or chest discomfort. She has a history of super super morbid obesity severe lower abdominal adhesions from previous fatty liver neuropathy and a history of anxiety/depression. Objective - Vital Signs Vital signs: Vital Signs Temp 97.5 F L 04/06/17 07:00 Pulse 108 H 04/06/17 08:46 Resp 16 04/06/17 07:00 BP 121/74 04/06/17 07:00 Pulse Ox 98 04/06/17 08:28 Intake & Output 04/05/17 04/06/17 04/06/17 18:59 06:59 18:59 Intake Total 1811.2 Output Total 650 20 Balance -650 1791.2 Intake: IV 800 0.9% NaCl with KCl 20 Meq 800 /l 1,000 ml @ 100 mls/hr IV .BY DURATION KHUSHI Rx#: [id number] Intake, IV Titration 1011.2 Amount Mvi, Adult No.4 with Vit 1011.2 K 10 ml Thiamine 100 mg Folic Acid 1 mg In 0.9% NaCl with KCl 20 Meq/l 1, 000 ml @ 100 mls/hr IV . BY DURATION KHUSHI Rx#: [id number] Output: Drainage 20 Abdomen 20 Urine 650 Uretheral (Kan) 200 Other: Voiding Method Toilet # Voids 2 - Exam No acute distress, oriented 3. HEENT examination is grossly unremarkable. Next memory to moist. No oral lesions. Not wearing nasal O2 today. Neck supple. Full range of motion. No adenopathy or thyromegaly. Neck veins are flat. Cardiovascular examination reveals regular rhythm rate. S1-S2 normal. No S3- S4 or murmur. Lungs reveal mostly clear breath sounds. A few scattered rhonchi. No wheezes or crackles. Breath sounds are equal. Abdomen is obese. Bowel sounds are noted. Extremities are intact. No cyanosis clubbing. Mild edema. Skin without rash. Neurologic examination is nonfocal. - Labs CBC & Chem 7: 04/05/17 06:36 04/05/17 06:36 Labs: Abnormal Lab Results - Last 24 Hours (Table) 04/05/17 04/05/17 04/06/17 Range/Units 11:30 17:28 00:07 POC Glucose (mg/dL) 128 H 132 H 138 H (75-99) mg/dL 04/06/17 Range/Units 06:00 POC Glucose (mg/dL) 120 H (75-99) mg/dL Assessment and Plan (1) Gastric bypass status for obesity Status: Acute (2) Morbid obesity Status: Acute (3) BMI 60.0-69.9, adult Status: Acute (4) Diabetes mellitus type 2, noninsulin dependent Status: Acute (5) Gastroesophageal reflux disease Status: Acute (6) Hypertensive heart disease Status: Acute (7) Morbid obesity due to excess calories Status: Acute (8) Severe obstructive sleep apnea Status: Acute Plan: Plan dated 04/06/2017 The patient continues to show improvement. We will recommend ongoing use of the incentive spirometer every hour while awake. She continued with DVT and GI prophylaxis. She continues to improve her activity level. I asked her about possible discharge. He thought maybe the next day or so. She is feeling improved. She is walking. Able get up and take a shower. No discharge recommendations are made. No acute respiratory issues at this time. Time with Patient: Less than 30
--- NOTE | 2017-04-06 10:21 | P.CNPUL ---
History of Present Illness Consult date: 04/05/17 Requesting physician: Diana Sandy Reason for consult: dyspnea Chief complaint: Morbid obesity History of present illness: This is a very pleasant 46-year-old female patient who follows with Dr. oLve as her primary care physician. She has a history of depression, chronic obstructive disease, hypertension, obstructive sleep apnea, diabetes mellitus, hyperlipidemia. She also has a history of super morbid obesity BMI 66 and was seen and evaluated by Dr. Sandy who recommended a Lucien-en-Y procedure. She presented here on 04/04/2017 for an elective surgery. She had undergone a robotic-assisted laparoscopic Lucien-en-Y bypass, intraoperative esophagogastrojejunostomy, laparoscopic lysis of adhesions. He was noted to have severe lower abdominal adhesions from a previous , adhesions along the superior pole of the stomach from previous adjustable gastric band, hepatomegaly with severe fatty liver disease. Stop are typically she had required 3 L/m per nasal cannula to maintain O2 saturations in the low 90s. We' re consulted for the same. She is seen today in consultation on the surgical floor. She is currently sitting up in the chair at the bedside. She is awake and alert in no acute distress. Her chest x-ray revealed evidence of mild cardiomegaly but no acute cardiopulmonary process. She did have a sleep study prior to her surgery and was initiated on a CPAP machine. This is at the bedside as well. She also has a history of chronic tobacco dependence. No inhalers in the outpatient setting. She denies any worsening shortness of breath, cough or congestion. She is working with the incentive spirometer. Review of Systems 14 point review of system was conducted. All negative other than as mentioned in the HPI. Past Medical History Past Medical History: Diabetes Mellitus, GERD/Reflux, Hypertension, Sleep Apnea/ CPAP/BIPAP Additional Past Medical History / Comment(s): Neuropathy LT FOOT/HAND. Edema BLE. Brain Lesions. Anemia. Migraines. HAS CPAP. History of Any Multi-Drug Resistant Organisms: None Reported Past Surgical History: Bariatric Surgery, Section, Cholecystectomy, Hysterectomy, Tubal Ligation Additional Past Surgical History / Comment(s): lap band (removed 01/14/17), oopherectomy, C-S X3. Past Anesthesia/Blood Transfusion Reactions: No Reported Reaction Past Psychological History: Anxiety, Depression Smoking Status: Former smoker - Past Family History Mother Family Medical History: Cancer Additional Family Medical History / Comment(s): liver cancer Father Family Medical History: Hypertension Medications and Allergies Home Medications Medication Instructions Recorded Confirmed Type Furosemide [Lasix] 20 mg PO DAILY 04/13/16 04/04/17 History Venlafaxine HCl [Effexor XR] 225 mg PO DAILY 04/13/16 04/04/17 History Ergocalciferol [Vitamin D2] 50,000 unit PO MO 10/27/16 04/04/17 History Ibuprofen [Motrin] 600 mg PO Q8HR PRN 10/27/16 04/04/17 History LORazepam [Ativan] 0.5 mg PO TID PRN 10/27/16 04/04/17 History Montelukast [Singulair] 10 mg PO HS PRN 10/27/16 04/04/17 History Gabapentin [Neurontin] 300 mg PO TID 11/08/16 04/04/17 History Olmesartan/Hydrochlorothiazide 1 tab PO DAILY 01/12/17 04/04/17 History [Olmesartan-Hctz 40-25 mg Tab] Allergies Allergy/AdvReac Type Severity Reaction Status Date / Time No Known Allergies Allergy Verified 04/04/17 08:54 Physical Exam Vitals: Vital Signs Temp Pulse Pulse Pulse Resp BP Pulse Ox 04/06/17 08:46 108 H 04/06/17 08:28 110 H 98 04/06/17 07:00 97.5 F L 110 H 16 121/74 96 04/06/17 02:15 98.4 F 109 H 16 124/75 94 L 04/06/17 00:00 20 04/05/17 23:00 96 04/05/17 20:44 108 H 04/05/17 20:28 116 H 04/05/17 20:15 98.1 F 107 H 20 139/73 96 04/05/17 20:00 20 04/05/17 16:23 124 H 04/05/17 16:12 120 H 04/05/17 16:00 18 04/05/17 13:42 97.4 F L 110 H 18 174/87 93 L 04/05/17 12:30 130 H 04/05/17 12:15 126 H Intake and Output 06/04/06/17 04/06/17 22:59 06:59 14:59 Intake Total 1011.2 800 Output Total 20 Balance 1011.2 780 Intake: IV 800 0.9% NaCl with KCl 20 Meq 800 /l 1,000 ml @ 100 mls/hr IV .BY DURATION [facility] Rx#: [id number] Intake, IV Titration 1011.2 Amount Mvi, Adult No.4 with Vit 1011.2 K 10 ml Thiamine 100 mg Folic Acid 1 mg In 0.9% NaCl with KCl 20 Meq/l 1, 000 ml @ 100 mls/hr IV . BY DURATION [facility] Rx#: [id number] Output: Drainage 20 Abdomen 20 Other: Voiding Method Toilet # Voids 2 GENERAL EXAM: Morbidly obese. Alert, active, comfortable in no apparent distress. HEAD: Normocephalic. EYES: Normal reaction of pupils, equal size. NOSE: Clear with pink turbinates. THROAT: There is crowding the posterior pharynx. No erythema or exudates. NECK: Short. No masses, no JVD. CHEST: No chest wall deformity. LUNGS: Equal air entry with no crackles, wheeze, rhonchi or dullness. CVS: S1 and S2 normal with no audible murmurs, regular rhythm. ABDOMEN: Obese, soft surgical incisions clean dry well approximated. Normal bowel sounds, no guarding or rigidity. Extremities: There is trace peripheral edema. No clubbing, no cyanosis. Peripheral pulses are intact. Results - Laboratory Findings CBC and BMP: 04/05/17 06:36 04/05/17 06:36 Abnormal lab findings: Abnormal Labs 04/04/17 04/04/17 04/04/17 09:25 19:53 23:47 WBC Hct Neutrophils # Carbon Dioxide POC Glucose (mg/dL) 122 H 145 H 150 H Hemoglobin A1c 04/05/17 04/05/17 04/05/17 05:58 06:36 06:36 WBC 12.7 H Hct 48.2 H Neutrophils # 10.6 H Carbon Dioxide POC Glucose (mg/dL) 143 H Hemoglobin A1c 6.3 H 04/05/17 04/05/17 04/05/17 06:36 11:30 17:28 WBC Hct Neutrophils # Carbon Dioxide 21 L POC Glucose (mg/dL) 128 H 132 H Hemoglobin A1c 04/06/17 04/06/17 00:07 06:00 WBC Hct Neutrophils # Carbon Dioxide POC Glucose (mg/dL) 138 H 120 H Hemoglobin A1c - Diagnostic Findings Chest x-ray: image reviewed Assessment and Plan Plan: Impression: #1 Obesity, status post Lucien-en-Y with lysis of adhesions, postoperative day #1. #2 Severe hepatomegaly with severe fatty liver disease. #3 Obstructive sleep apnea with recent sleep study and CPAP initiation. #4 Chronic obstructive pulmonary disease, on no outpatient treatment. #5 Chronic tobacco dependence. #6 History of depression. #7 Hypertension. #8 History of diastolic congestive heart failure. #9 Diabetes mellitus. Plan: The patient was seen and evaluated by Dr. Flannery. We did order a chest x-ray. We'll also continue with bronchodilators 4 times a day and when necessary. We added Pulmicort inhalations twice a day. The patient has requested to follow with our group in the outpatient setting. We'll perform full pulmonary function testing to make recommendations for maintenance medications based on the severity of her chronic obstructive pulmonary disease. We'll continue with her CPAP and make adjustments in the future as needed for planned weight loss. We'll continue to titrate down her FiO2 while maintaining O2 saturations greater than 90%. We will increase her activity as tolerated. She is again encouraged regarding the increased use of the incentive spirometer and cough and deep breathing exercises. We'll continue to follow and make further recommendations based on her clinical status. Time with Patient: Greater than 30
[2017-04-06 10:24] VITALS: BMI 61.9
--- NOTE | 2017-04-06 11:26 | P.PN ---
Subjective 46 show female seen and evaluated currently sitting up in a chair. Patient continues to report having left arm discomfort but has increased mobility compared to prior assessment the left arm is warm palpable radial pulse patient states she cannot spontaneously abducted away from the body still has discomfort in a "but it is getting better" Patient is postop Robotic-assisted laparoscopic Lucien-en-Y gastric bypass, 100 cm limb, intraoperative esophagogastrojejunoscopy, laparoscopic lysis of adhesions on April 04 Objective - Vital Signs Vital signs: Vital Signs Temp 97.5 F L 04/06/17 07:00 Pulse 108 H 04/06/17 08:46 Resp 16 04/06/17 07:00 BP 121/74 04/06/17 07:00 Pulse Ox 98 04/06/17 08:28 Intake & Output 04/05/17 04/06/17 04/06/17 18:59 06:59 18:59 Intake Total 1811.2 Output Total 650 20 Balance -650 1791.2 Weight 179.2 kg Intake: IV 800 0.9% NaCl with KCl 20 Meq 800 /l 1,000 ml @ 100 mls/hr IV .BY DURATION [facility] Rx#: [id number] Intake, IV Titration 1011.2 Amount Mvi, Adult No.4 with Vit 1011.2 K 10 ml Thiamine 100 mg Folic Acid 1 mg In 0.9% NaCl with KCl 20 Meq/l 1, 000 ml @ 100 mls/hr IV . BY DURATION [facility] Rx#: [id number] Output: Drainage 20 Abdomen 20 Urine 650 Uretheral (Kan) 200 Other: Voiding Method Toilet Toilet # Voids 2 - Exam Physical exam 46-year-old female sitting up in a chair appears in no acute distress Lungs essentially clear able to use the incentive spirometer can achieve 1500 Heart S1-S2 audible heart rate 110 Abdomen obese soft nontender surgical sites benign no redness HARITHA drain in place serous drainage noted in the bulb states passing gas no stool no difficulty in urinating Extremities trace pedal edema noted - Labs CBC & Chem 7: 04/05/17 06:36 04/05/17 06:36 Labs: Abnormal Lab Results - Last 24 Hours (Table) 04/05/17 04/05/17 04/06/17 Range/Units 11:30 17:28 00:07 POC Glucose (mg/dL) 128 H 132 H 138 H (75-99) mg/dL 04/06/17 Range/Units 06:00 POC Glucose (mg/dL) 120 H (75-99) mg/dL Assessment and Plan Plan: Impression Super morbid obesity BMI 61 Severe lower abdominal adhesions from previous Fatty liver disease Robotic-assisted laparoscopic Lucien-en-Y gastric bypass, 100 cm limb, intraoperative esophagogastrojejunoscopy, laparoscopic lysis of adhesions History of neuropathy Anxiety depressive disorder nonspecified Type 2 diabetes insulin requiring hemoglobin A1c 6.3 Plan Continue postop surgical care as ordered Nothing by mouth except for ice chips only Follow-up on pending labs DVT and GI prophylaxis Increase activity to the level of tolerance Further recommendations pending Continue to use the incentive spirometer every 1 hour while awake Monitor blood sugars address as indicated The above dictated assessment and findings were discussed with dr Du Lopez and the plan of care have been dictated as directed. Lois Marcus nurse practitioner acting as a scribe for Du
[2017-04-06 11:53] LABS: Glucose,Whole Blood 110 mg/dL (75-99)
--- NOTE | 2017-04-06 13:38 | P.CN ---
Psychiatric Consult - . Consult date: 04/06/17 Consult:: 04/06/17 13:33 DATE OF SERVICE: 04/06/2017 IDENTIFYING DATA: This patient is a 46-year-old female seen on surgical floor status post gastric bypass. Consulted for help in managing her medication after bypass surgery. Patient reports that she's been taking Effexor XR 225 mg daily for approximately 4 years. She has done well with this but now has not taken it for several days and is wondering if she is starting to experience symptoms of withdrawal. Reports she has a headache sensitivity to light. No suggestion of depression, no psychosis, no danger to self. Assessment: Patient off of Effexor XR for several days now for surgery, and now due to the bypass cannot take pills. She is now experiencing withdrawal from from Effexor, serotonin withdrawal is frequently common with Effexor. Depression, unspecified, resolved Plan: Spoke to pharmacy and they do have fluoxetine/Prozac in liquid form. Prozac 20 mg every morning. It was ordered for her. Please reconsult if there is any problems.
[2017-04-06] MEDS ORDERED: METHYLENE BLUE 50 MG/10 ML AMPUL MISCELLANE ONE (14:45)
[2017-04-06 17:33] LABS: Glucose,Whole Blood 121 mg/dL (75-99)
[2017-04-06 19:18] VITALS: RESP 16
[2017-04-06] MEDS: ONDANSETRON 4 MG/2 ML VIAL IVP PRN (19:29)
[2017-04-06] MEDS: LORazepam 2 MG/ML SYRINGE IV PRN (21:19)
[2017-04-06] MEDS: INSULIN GLARGINE 100 UNIT/ML 10 ML VIAL SQ SCH (21:48)
[2017-04-06] MEDS: FLUoxetine ORAL SOLN 20 MG/5 ML CUP PO SCH (21:49)
--- NOTE | 2017-04-06 22:23 | PN ---
DATE OF SERVICE: 04/06/2017 This 46-year-old woman was admitted after Lucien-en-Y gastric bypass surgery. She is improving significantly. No chest pain. No palpitation. No fever. On exam, alert and oriented x2. Pulse 108, blood pressure 133/77, respiration 17, temperature 97 degrees, pulse ox 98% on room air. HEENT: Conjunctivae normal. NECK: No jugular venous distention. CARDIOVASCULAR SYSTEM: S1, S2 muffled. RESPIRATORY SYSTEM: Breath sounds diminished at the bases. A few scattered rhonchi. No crackles. ABDOMEN: Soft, status post surgery. LEGS: No edema. No swelling. NERVOUS SYSTEM: No focal deficit. LABS: Accu-Cheks 138, 121, 110. WBC 12.7 on 04/05. ASSESSMENT: 1. Status post Lucien-en-Y gastric bypass surgery. 2. Tachycardia. 3. Diabetes mellitus, type 2, on oral hypoglycemics. 4. Gastroesophageal reflux disease. 5. History of hypertension. 6. Obstructive sleep apnea, on CPAP. 7. Depression and anxiety not otherwise specified. 8. Morbid obesity; body mass index of 61.9. RECOMMENDATIONS AND DISCUSSION: I recommend to continue with the current medications, continue with symptomatic treatment. Incentive spirometry. DVT prophylaxis. Continue to monitor. The baseline EKG did show sinus tachycardia with some PVCs. Further recommendations to follow. Pulmonary has seen the patient for COPD.
[2017-04-06 22:32] LABS: Basophils % (A) 0 %; CH 30.8; Eosinophils # (A) 0.3 k/uL (0-0.7); Eosinophils % (A) 3 %; HCT 38.1 % (34.0-46.0); HDW 2.67; Luc # (Auto) 0.26; Luc % (Auto) 3; Lymphocytes # (A) 1.7 k/uL (1.0-4.8); Lymphocytes % (A) 17 %; MCH 32.2 pg (25.0-35.0); MCHC 34.2 g/dL (31.0-37.0); MCV 94.1 fL (80.0-100.0); Mean Platelet Volume 8.4; Monocytes # (A) 0.7 k/uL (0-1.0); Monocytes % (A) 7 %; Neutrophils # (A) 6.9 k/uL (1.3-7.7); Neutrophils % (A) 70 %; RBC 4.05 m/uL (3.80-5.40); RDW 15.2 % (11.5-15.5); WBC 9.8 k/uL (3.8-10.6); WBC (Perox) 10.59
[2017-04-06 22:48] LABS: Anion Gap 7 mmol/L; Blood Urea Nitrogen 12 mg/dL (7-17); Calcium 8.4 mg/dL (8.4-10.2); Carbon Dioxide 24 mmol/L (22-30); Chloride 107 mmol/L (98-107); Glucose 118 mg/dL (74-99); Magnesium 2.2 mg/dL (1.6-2.3); Non-African American GFR(MDRD) >60 (>60 ml/min/1.73 sqM); Potassium 4.7 mmol/L (3.5-5.1); Sodium 138 mmol/L (137-145)
[2017-04-07 00:33] LABS: Glucose,Whole Blood 109 mg/dL (75-99)
[2017-04-07] MEDS: INSULIN LISPRO (humaLOG) 300 UNIT/3 ML VIAL SQ SCH ×4 (01:14→18:01)
[2017-04-07] MEDS: HYDROmorphone 1 MG/ML 1 ML SYRINGE IVP PRN ×3 (05:10→14:09)
[2017-04-07 05:49] LABS: Glucose,Whole Blood 108 mg/dL (75-99)
[2017-04-07] MEDS: IPRATROPIUM-ALBUTEROL 3 ML NEB INHALATION SCH ×5 (07:06→19:10)
[2017-04-07] MEDS: BUDESONIDE 1 MG/2 ML NEBU INHALATION SCH ×3 (07:06→19:10)
[2017-04-07 07:48] LABS: Anion Gap 7 mmol/L; Blood Urea Nitrogen 12 mg/dL (7-17); Calcium 8.5 mg/dL (8.4-10.2); Carbon Dioxide 25 mmol/L (22-30); Chloride 110 mmol/L (98-107); Glucose 112 mg/dL (74-99); Non-African American GFR(MDRD) >60 (>60 ml/min/1.73 sqM); Potassium 4.9 mmol/L (3.5-5.1); Sodium 142 mmol/L (137-145)
[2017-04-07] MEDS: ENOXAPARIN 40 MG/0.4 ML SYRINGE SQ SCH (08:56)
[2017-04-07] MEDS: FUROSEMIDE 10 MG/ML 2 ML VIAL IV SCH (08:57)
[2017-04-07] MEDS: PANTOPRAZOLE 40 MG/10 ML VIAL IV SCH (08:57)
[2017-04-07] MEDS: FLUoxetine ORAL SOLN 20 MG/5 ML CUP PO SCH (08:57)
[2017-04-07 09:05] LABS: Basophils % (A) 1 %; CH 30.8; CHCM 32.5; Eosinophils # (A) 0.4 k/uL (0-0.7); Eosinophils % (A) 4 %; HCT 40.6 % (34.0-46.0); HDW 2.63; HGB 13.8 gm/dL (11.4-16.0); Luc # (Auto) 0.23; Luc % (Auto) 2; Lymphocytes # (A) 1.3 k/uL (1.0-4.8); Lymphocytes % (A) 14 %; MCH 32.5 pg (25.0-35.0); MCV 95.4 fL (80.0-100.0); Mean Platelet Volume 8.7; Monocytes # (A) 0.6 k/uL (0-1.0); Monocytes % (A) 7 %; Neutrophils % (A) 73 %; RBC 4.26 m/uL (3.80-5.40); WBC 9.6 k/uL (3.8-10.6); WBC (Perox) 9.92
[2017-04-07] MEDS: GABAPENTIN 300 MG CAP PO SCH ×2 (12:00→17:58)
--- NOTE | 2017-04-07 12:26 | PN ---
The patient is status post Lucien- en- Y bypass. The patient is doing relatively well. Feeling well. She did bring her CPAP device from home to the hospital. She is using it. She is also hourly incentive spirometry as recommended. Off of oxygen. Sitting up in the chair. No respiratory complaints. She thought she might go home tomorrow, but she's not sure. Current vital signs include temperature which is 97.8, heart rate which is 100, respiratory rate 16, blood pressure which 130/87, mean 101 and at 3 liters saturation 98%, room air saturation 95%. Appears in no acute distress. HEENT: Grossly unremarkable. Mucous membranes moist. No oral lesions. Neck is supple. Full range of motion. No adenopathy or thyromegaly. Cardiovascular examination reveals regular rhythm and rate. S1, S2 normal. No S3, S4 or murmur. Lungs reveal relatively clear breath sounds but a few scattered rhonchi. ABDOMEN: Soft. Bowel sounds are heard. No adventitious lung sounds except for a few scattered rhonchi. ABDOMEN: Soft but obese. Bowel sounds are heard. EXTREMITIES: Intact. No significant edema, cyanosis or clubbing. Skin without rash. NEUROLOGICAL: Examination is nonfocal. Labs are reviewed. CBC completely normal. Sodium and potassium normal. Chloride is 110, CO2 of 25, BUN and creatinine were 12 and 0.49. Anion gap is normal. Microbiology is all negative or pending. Medications are reviewed. ASSESSMENT: 1. Status post gastric bypass for super obesity. 2. Morbid obesity. 3. Diabetes mellitus type 2, [id number]. 4. Gastroesophageal reflux disease. 5. Hypertensive heart disease. 6. Severe obstructive sleep apnea syndrome, currently on CPAP. PLAN: The patient continues to do well. Will continue to follow. Remains on DVT and GI prophylaxis. Possible discharge tomorrow. No respiratory issues at this point. She has been weaned off oxygen. Will continue to recommending counseled her about the importance of hourly incentive spirometry and use of her CPAP device at night time.
[2017-04-07 12:27] LABS: Glucose,Whole Blood 108 mg/dL (75-99)
--- NOTE | 2017-04-07 13:51 | P.PN ---
Subjective 46 show female seen and evaluated sitting up in a chair. Reports continues to have left arm discomfort. States it slightly improved but when trying to move the left arm she needs to use the right arm to move it "" palpable left radial pulse left arm is warm. Adequate color. Physical and occupational therapy did see patient Patient is postop Robotic-assisted laparoscopic Lucien-en-Y gastric bypass, 100 cm limb, intraoperative esophagogastrojejunoscopy, laparoscopic lysis of adhesions on April 04 Objective - Vital Signs Vital signs: Vital Signs Temp 97.8 F 04/07/17 01:50 Pulse 102 H 04/07/17 12:12 Resp 16 04/07/17 08:00 BP 130/87 04/07/17 01:50 Pulse Ox 100 04/07/17 07:55 Intake & Output 04/06/17 04/07/17 04/07/17 18:59 06:59 18:59 Intake Total 2010.2 2161.667 400 Output Total 10 15 Balance 2000.2 2146.667 400 Weight 179.2 kg Intake: Intake, IV Titration 2010. 2161.667 Amount 0.9% NaCl with KCl 20 Meq 1000 961.667 /l 1,000 ml @ 100 mls/hr IV .BY D[facility]ATION [facility] Rx#: [id number] Lactated Ringers 1,000 ml 1200 As IV .[facility] Rx#: [id number] Mvi, Adult No.4 with Vit 1011.2 K 10 ml Thiamine 100 mg Folic Acid 1 mg In 0.9% NaCl with KCl 20 Meq/l 1, 000 ml @ 100 mls/hr IV . BY DURATION [facility] Rx#: [id number] Oral 400 Output: Drainage 10 15 Abdomen 10 15 Other: Voiding Method Toilet Toilet # Voids 3 # Bowel Movements 2 - Exam Physical exam 46-year-old female sitting up in a chair appears in no acute distress Lungs essentially clear able to use the incentive spirometer can achieve 1500 Heart S1-S2 audible heart rate 110 Abdomen obese soft nontender surgical sites benign no redness HARITHA drain in place serous drainage noted in the bulb states passing had bowel movement this morning no difficulty in urinating Extremities trace pedal edema noted to continues to report having left arm discomfort - Labs CBC & Chem 7: 04/07/17 06:55 04/07/17 06:55 Labs: Abnormal Lab Results - Last 24 Hours (Table) 04/06/17 04/06/17 04/07/17 Range/Units 17:31 22:23 00:32 Chloride (98-107) mmol/L Creatinine 0.51 L (0.52-1.04) mg/dL Glucose 118 H (74-99) mg/dL POC Glucose (mg/dL) 121 H 109 H (75-99) mg/dL 04/07/17 04/07/17 04/07/17 Range/Units 05:46 06:55 11:58 Chloride 110 H (98-107) mmol/L Creatinine 0.49 L (0.52-1.04) mg/dL Glucose 112 H (74-99) mg/dL POC Glucose (mg/dL) 108 H 108 H (75-99) mg/dL Assessment and Plan Plan: Impression Super morbid obesity BMI 61 Severe lower abdominal adhesions from previous Fatty liver disease Robotic-assisted laparoscopic Lucien-en-Y gastric bypass, 100 cm limb, intraoperative esophagogastrojejunoscopy, laparoscopic lysis of adhesions History of neuropathy Anxiety depressive disorder nonspecified Type 2 diabetes insulin requiring hemoglobin A1c 6.3 Plan Continue postop surgical care as ordered Nothing by mouth except for ice chips only Follow-up on pending labs DVT and GI prophylaxis Increase activity to the level of tolerance Further recommendations pending Continue to use the incentive spirometer every 1 hour while awake Monitor blood sugars address as indicated Psychiatrics recommendations noted Prozac to be liquid form 20 mg daily Effexor no liquid form The above dictated assessment and findings were discussed with dr Du Lopez and the plan of care have been dictated as directed. Lois Marcus nurse practitioner acting as a scribe for Du
[2017-04-07 17:31] LABS: Glucose,Whole Blood 89 mg/dL (75-99)
[2017-04-07] MEDS: LORazepam 2 MG/ML SYRINGE IV PRN (17:54)
[2017-04-07] MEDS: LACTATED RINGERS 1,000 ML IV SCH (19:35)
[2017-04-07 20:04] VITALS: BP 119/72; PULSE 92; TEMP 98.7
--- NOTE | 2017-04-07 21:07 | P.PN ---
Progress Note - Text Patient seen and evaluated this evening. She had had a bowel movement. She is passing flatus. She reports increased improvement of her left arm after occupational therapy. She is tolerating her medications. Her blood sugars are now improved. Bariatric discharge instructions were reviewed in detail including minimal lifting. May walk and ambulate. She'll continue with HARITHA drain. Her new medications including Prozac was checked and we'll continue liquid dosage. Medical reconciliation was also performed.
--- NOTE | 2017-04-07 22:18 | PN ---
DATE OF SERVICE: 04/07/2017 This 46-year-old woman was admitted after Lucien-en-Y gastric bypass surgery, is being closely monitored. Patient has weakness of the left arm. Occupational therapy is being arranged at this time. No chest pain or palpitations. No fever. On exam, alert, oriented x3. Pulse 105, blood pressure 114/77, respirations 16, temperature 98.4, pulse ox 94% on room air. HEENT: Conjunctivae normal. NECK: Supple. No JVD. CARDIAC: S1 and S2 muffled. LUNGS: Decreased at the bases. No rhonchi, no crackles. ABDOMEN: Soft. Status post surgery. EXTREMITIES: Legs no edema. NERVOUS SYSTEM: Weakness with dorsiflexion of the left hand present. No sensory abnormality. LABS: CBC within normal limits. Creatinine 0.49. Accu-Cheks noted. ASSESSMENT: 1. Status post Lucien-en-Y gastric bypass surgery. 2. Tachycardia, improved. 3. Diabetes mellitus, on oral hypoglycemic. 4. Weakness of left arm, possibly nerve compression. 5. Gastroesophageal reflux disease. 6. History of hypertension. 7. Sleep apnea on CPAP. 8. History of depression, anxiety, not otherwise specified. 9. Morbid obesity, body mass index 61.9. RECOMMENDATIONS AND DISCUSSION: In this 47-year-old woman who presented with multiple complex medical issues, we will monitor the patient closely, continue with current medications and current treatment. Otherwise continue DVT prophylaxis. Home medications. Monitor blood sugars closely. Otherwise, I would recommend to continue with PT and OT. Further recommendations to follow.
--- NOTE | 2017-04-18 21:36 | P.OP ---
Date of Procedure: 04/04/17 Preoperative Diagnosis: Postoperative Diagnosis: Procedure(s) Performed: Implants: Indications for Procedure: Operative Findings: Description of Procedure: DESCRIPTION OF PROCEDURE(S): SURGEON: ASHLY PAYNE MD HOSPICE MASSAGE THERAPIST: 1. ADIA NASCIMENTO 2. Robbie Rubin 3. Minnie Lerma PREOPERATIVE DIAGNOSES: 1. Morbid obesity due to excess calories. 2. Body mass index reduced from 66 to 61.9. 3. Prior history of adjustable gastric band with intolerance. 4. Obstructive sleep apnea, untreated. 5. Glucose intolerance. 6. Leukocytosis. 7. Hypertensive cardiomyopathy. 8. History of left ventricular hypertrophy. 9. Bilateral lower extremity edema. 10. Gastroesophageal reflux disease. 11. Osteoarthritis of the lower back. 12. Osteoarthritis of the bilateral hips. 13. Osteoarthritis of bilateral knees. 14. Congestive heart failure. 15. History of complications from adjustable gastric band. 16. Gastroesophageal reflux disease. 17. Panniculitis. 18. Diabetes type 2, [id number]. POSTOPERATIVE DIAGNOSES: 1. Morbid obesity due to excess calories. 2. Body mass index reduced from 66 to 61.9. 3. Prior history of adjustable gastric band with intolerance. 4. Obstructive sleep apnea, untreated. 5. Glucose intolerance. 6. Leukocytosis. 7. Hypertensive cardiomyopathy. 8. History of left ventricular hypertrophy. 9. Bilateral lower extremity edema. 10. Gastroesophageal reflux disease. 11. Osteoarthritis of the lower back. 12. Osteoarthritis of the bilateral hips. 13. Osteoarthritis of bilateral knees. 14. Congestive heart failure. 15. History of complications from adjustable gastric band. 16. Gastroesophageal reflux disease. 17. Panniculitis. 18. Diabetes type 2, [id number]. 19. Severe lower abdominal adhesions from previous 20. Adhesions along the superior pole of stomach from previous adjustable gastric band 21. Severe hepatomegaly with fatty liver disease. 22. Lipodystrophy of omental fat. OPERATION: 1. Robotic assisted laparoscopic Silvio-en-Y gastric bypass, 100cm antecolic antegastric Silvio limb, with 25 mm EEA. 2. Intraoperative esophagogastrojejunoscopy. 3. Laparoscopic lysis of adhesions over 4 hours. ANESTHESIA: 90 mL 0.25% Marcaine with epinephrine. ESTIMATED BLOOD LOSS: 50 mL SPECIMENS REMOVED: Gallbladder. INDICATIONS: The patient is a very pleasant, 46-year-old female who presents with morbid obesity as her body mass index was 66. She had a prior adjustable gastric band removal 2-3 months ago. At her height of 5 foot 5 inches, her ideal body weight is 149 pounds. She comes in weighing pounds 394 pounds. She is 245 pounds overweight. All surgical options for morbid obesity had been described using the [place] bariatric surgery collaborative comorbidity resolution including complication risk score. The patient had elected for a gastric bypass with possible sleeve gastrectomy. A second-generation bariatric consent form was described in detail including the possibility of protein malnutrition, leaks, gastrojejunal stricture, venous thrombosis, need for further surgery for which she demonstrated understanding. Benefits and risks of the procedure were described at length. Informed consent was obtained. DESCRIPTION: The patient was brought into the operating room theater. She was placed on a split leg table. Preoperatively she had received Lovenox subcutaneously for DVT prophylaxis. Additionally she had undergone Peridex oral solution as an oral decontaminant. After general induction, the abdomen was prepped and draped in standard sterile fashion. A Kan catheter was placed. Ioban draping was placed along the abdomen. A robotic da Saida Si system was prepped and primed. The xiphoid to umbilicus was measured of 40 cm. At 25 cm from the xiphoid to just below the umbilicus, proposed port sites were marked with indelible marker along the anterior axillary line bilaterally, mid axillary line bilaterally with each ports were marked 10 cm from each other. The orthodontic assistant port was marked along the right lateral abdominal wall. The robotic stapler port was marked for the right midclavicular line. A 5 mm 0 degrees laparoscopic trocar entry was performed along the left upper quadrant. The abdomen was insufflated to 15 mmHg pressure she tolerated well. Given the size and body habitus with the patient, exposure was extremely difficult with insufflation. Diagnostic laparoscopy demonstrated no injury to bowel, viscera, or mesentery. The liver surface was had findings consistent with fatty liver disease. Severe hepatomegaly was also identified. No injury had occurred to the small bowel or viscera. The hiatus was barely visible. No evidence of large prominent hiatal hernia was encountered. Next, one 8 mm robotic port and 12-mm robot stapler port was were placed along the right mid abdomen. The camera 12-mm port extended length was maintained along the epigastrium. Two 8 mm port was placed along the left upper abdominal wall after exchanging the 5 mm port. The lateral port was exchanged for a bariatric length trocar. All bariatric length robotic trochars were used. Please note that the ports were placed at least 20 cm away from the target anatomy of the stomach. Care was taken to check each robotic arms were safely away from collision with the bed or the patient. At the epigastrium, a median sized Theodore liver retractor was placed under direct visualization with the [employer] Shear Operator placed over the right shoulder of the patient. The additional third robotic arm was placed along the left aspect of the patient. The patient was repositioned in reverse Trendelenburg position after lowering the bed. The robot was docked over the patient. Using a grasper for arm 3, a grasper for arm 2, including vessel sealer for arm 1, the robotic system was docked and primed as described. Instruments were interchanged by the orthodontic assistant including hook cautery. I had sat at the console. The robotic instruments were exchanged for a vessel sealer including atraumatic graspers. The transverse mesocolon, including the omentum is extremely thick features of lipodystrophy. An adhesion of the lower pelvis was identified preventing complete reflection of the transverse mesocolon into the upper abdomen. Hence, a window was created along the transverse mesocolon using a vessel sealer towards the greater curvature of the stomach. Given the dense tissue, multiple passes the vessel sealing was used to create a window through the transverse mesocolon. More than 30-40 minutes was used just to incise the transverse mesocolon. At this point, the robot was undocked. Laparoscopic approach was performed to identify the adhesion of the lower pelvis. I re-scrubbed into the case. The adhesion was found of the lower abdomen. The patient had been leveled. Extensive lysis of adhesions over another 45 minutes was performed to free the transverse mesocolon of the lower pelvis. Next, the transverse mesocolon was reflected into the upper abdomen preparing for the jejunojejunostomy portion of the case. Robot was then re-docked. The ligament of Treitz was identified and measured 60 cm antegrade and marked using 2-0 Vicryl and SH needle. The jejunum was divided at the 60 cm point above the suture measurement. The biliopancreatic limb was held in place by the orthodontic assistant. The Silvio limb was then measured initially at 150 cm distally; however severe tension was identified. The Silvio limb was then re-measured 100 cm in an antegrade fashion to avoid tension along the proposed gastrojejunal anastomosis. At 100 cm along the anti-mesenteric border of the Silvio limb, a jejunojejunostomy was proposed whereby enterotomies were created along the biliopancreatic limb including the Silvio limb using a Bovie cautery. A stay suture of 2-0 Vicryl was placed to align and create the anastomosis. The enterotomies along the anti-mesenteric borders were created followed by unidirectional fire from the patient's right side using 2 - 45 mm blue load [employer] technology robotic stapler. The jejunojejunostomy was found to be hemostatic. The enterotomy was closed after horizontal mattress stitch of 2-0 silk used to elevate the enterotomy followed by closure with the robotic stapler blue load. Attention was now brought to the creation of the gastrojejunostomy. The robot was undocked. The patient was placed in steep reverse Trendelenburg position. The robot was then re-docked. Moderate omental adhesions was found about the upper pole stomach from her previous adjustable gastric band. Separately, she had extremely thickened cicatrix from a previous adjustable gastric band also adding another complexity of the case. Meticulous dissection occurred well over 1.5 hrs to free the stomach. Along the lesser curvature of the stomach between the second and third veins, dissection was made along the retrogastric space to allow first firing of the robotic staple. Dense posterior gastric adhesions were identified, hence increasing the complexity of her case. Approximately 3 fires perpendicular to the lesser curvature stomach was performed to start the gastric pouch. The angle of Hiss was obscured by limited view from poor insufflation of the abdomen given her body habitus. Additional manipulation and mobilization of the gastric pouch occur for another hour and a half. A separate 4 fires of the robotic staple was made toward the angle of His in an attempt to divide the gastric pouch from the gastric remnant. The patient was then prepared for placement of a Orvil. The patient was Mallampati 3. A 25-mm Orvil was selected for placement by the nurse headliner installer. 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 I then went to the head of the bed to perform a intraoperative upper endoscopy. The scope was advanced along the posterior oropharynx down to the distal esophagus where at the scope had preferentially enter the gastric remnant. The lumen of the gastric pouch was too edematous to allow advancement of the scope. At this point, the rest of the case was attempted laparoscopic for revision of her gastric pouch. The robot was undocked. Along the greater curvature of the stomach at the upper pole, a window was created along the mesentery. Sonicision was used for minimal dissection of the short gastrics to maintain viability of the proposed new gastric pouch. A window along the posterior stomach was performed with an exit along the previous gastric pouch along the lesser curvature of the stomach. Using [employer] 16mm purple loads, multiple fires was performed to divide the new gastric pouch. Careful inspection was performed to ensure no gastric gastric fistula to the gastric remnant. The previous gastric pouch was consistent with a gastric diverticulum and undisturbed as to avoid any devascularization of the new gastric pouch. An additional hour was used to create the new gastric pouch. A second attempt of the 25-mm OrVil was performed by the headliner installer. The Orvil tubing was placed anterior to the staple line of the gastric pouch and brought out through the left inferior lateral port. The Orvil was then carefully and successfully navigated with the help of the nurse headliner installer into the gastric pouch. The sutures were identified and divided. The tubing was from the 25 mm anvil. Using aseptic technique all instruments including port sites were exchanged. As the Orvil had been placed, the blind jejunal limb was brought proximally into the upper abdomen. The transverse mesocolon was previously cleaved using the robotic vessel sealer. No torsion was found upon the Silvio limb. No tension was identified as the limb was brought along the upper abdomen. The blind jejunal limb was opened using a cordless Harm[employer] scalpel. The 25-mm EEA stapler was brought through the left anterior lateral port site from the left side. Please note that the trocars from the Orvil tubing, including the port, were removed to minimize contamination from the oral nhan. The EEA stapler was brought through the open jejunal limb and its needle was deployed at the antimesenteric border where the anvil were mated for approximately 1 minute upon firing. The stapler was removed after irrigating the shaft of the instrument with warm normal saline. Donuts were found to be intact on both sides. The open jejunal limb defect was closed using a 60 mm houser load after releasing any tension from the blind jejunal limb. Hemostasis was checked with Sonicision along the blind jejunal limb mesentery. Care was taken to avoid any long blind limb to avoid candycane syndrome. No reinforcement sutures were placed along the gastrojejunal anastomosis given the difficulty of the patient's body habitus and thickness of the subcutaneous tissue. The mesenteric defects were completely obliterated by her intra-abdominal fat. I then went to the head of the bed to perform the esophagogastrojejunoscopy and a leak test. An Olympus gastroscope was passed along the posterior oropharynx which was unremarkable for any injury to the vocal cords. The scope was passed down to the proximal portion of the pouch, whereby no active bleeding was encountered. Excellent visualization of the gastrojejunostomy anastomosis, including the Silvio limb was encountered with endoscopic image obtained. The anastomosis was found to be patent. The gastrointestinal tract was desufflated. No evidence of intraoperative leak was encountered as the gastric pouch and anastomosis were submerged under normal saline solution. I then went back to the bedside of the patient, whereby with coordinated effort of the orthodontic assistant, irrigation was aspirated from the upper abdominal cavity. Tisseel was placed circumferentially over the anastomosis of the gastrojejunostomy. As moderate irrigation reduced abdominal cavity, a drain placed within the abdomen, left upper quadrant using #19 round drain placed anterior to the gastrojejunostomy anastomosis. All instruments and pneumoperitoneum were evacuated from the abdominal cavity. The port correlating with the EEA stapler device was copiously irrigated with 3 L of warm normal saline solution and 50 mL of hydrogen peroxide. The fascial defect was closed using 0 Vicryl and Kochers. A quarter inch Man drain was placed along the EEA stapler site and tacked using 2-0 nylon. The rest of incisions were reapproximated using 3-0 Vicryl for deep subcutaneous tissue and dermis followed by 4-0 Monocryl in a running subcuticular fashion. For local anesthetic, 0.25% Marcaine with epinephrine was infiltrated along the skin for postop analgesia. Dermabond was applied to the skin. OptiFoam dressing was placed along the EEA stapler site and drain site. At the end of the procedure, needle, sponge and instrument count had been verified correct by the surgical services director. She had tolerated the procedure well and was extubated and taken to the postanesthesia unit in stable condition. Overall operative time of 7 hours and 18 minutes with multiple challenges including insufflation of the abdomen, patient's body habitus, patient multiple intra-abdominal adhesions along the gastric pouch and lower pelvis, including revision of her gastric pouch. Operative Findings: 1. Lipodystrophy of the abdominal wall including of the omentum adding moderate complexity to the case. 2. Severe hepatomegaly from severe fatty liver disease adding severe complexity to the case, over 3-1/2 hours. 3. Adhesions of the lower pelvis from prior adding additional 2 hours of lysis of adhesions. 4. Initial gastric pouch forming a gastric diverticulum along the lesser curvature of the stomach revised with a gastric pouch involving the proximal stomach. 5. Bypass performed using 100 cm silvio limb secondary to increased tension identified at 150 cm. 6. Barnes defect and jejunojejunostomy defect obliterated by moderate intra- abdominal fat. 7. Leak test negative with gastrojejunal anastomosis patent and completely hemostatic. 8. Red Will closure not used to avoid risk or injury to small bowel. 9. Drain placed as moderate irrigation over 1 L within the abdomen, left upper quadrant using #19 round drain placed anterior to the gastrojejunostomy anastomosis. 10. Robotic approach completed for jejunojejunostomy. 11. Port placement identified after measuring xiphoid to umbilicus of 40 cm length. 12. Ports placed at 25 cm distal to xiphoid and 10-15 cm laterally from each other. 13. Robotic stapler placed at the right side of the patient. 14. Snow Ranger port placed 10 cm inferior lateral to camera port and 8 cm medial and inferior to stapler. 15. Multiple robotic assistants used at least 3 throughout the case.
--- NOTE | 2017-04-18 21:43 | P.DS ---
Providers Date of admission: 04/04/17 08:48 Expected date of discharge: 04/07/17 Attending physician: Diana Sandy Consults: 04/04/17 19:51 Consult Physician Routine Consulting Provider: Servando Torres Consult Reason/Comments: Medical management Do you want consulting provider notified?: Yes, Notify in am 04/05/17 08:07 Consult Physician Routine Consulting Provider: Jayne Judge Consult Reason/Comments: COPD, sleep apnea Do you want consulting provider notified?: Yes 04/05/17 15:22 Consult Physician Routine Consulting Provider: Fadumo Humphrey Consult Reason/Comments: liquid effexor dosing Do you want consulting provider notified?: Already Contacted 04/07/17 14:21 Consult Physician Urgent Consulting Provider: Shruthi Arce Consult Reason/Comments: Left neck pain radiating down the left arm Do you want consulting provider notified?: Yes Primary care physician: Robles Love - Discharge Diagnosis(es) (1) Hepatomegaly Status: Acute (2) Fatty liver Status: Acute (3) Peritoneal adhesion Status: Acute (4) Osteoarth NOS-shlder Status: Acute (5) Osteoarth NOS-pelvis Status: Acute (6) Osteoarth NOS-l/leg Status: Acute (7) Panniculitis Status: Acute (8) BMI 60.0-69.9, adult Status: Acute (9) Diabetes mellitus type 2, noninsulin dependent Status: Acute (10) Difficult intubation Status: Acute (11) Gastric bypass status for obesity Status: Acute (12) Gastroesophageal reflux disease Status: Acute (13) Hypertensive heart disease Status: Acute (14) Morbid obesity due to excess calories Status: Acute (15) Severe obstructive sleep apnea Status: Acute (16) Lipodystrophy Status: Acute (17) Cardiomegaly Status: Acute (18) Hypertensive cardiomegaly Status: Acute (19) Depression Status: Acute Hospital Course: PREOPERATIVE DIAGNOSES: 1. Morbid obesity due to excess calories. 2. Body mass index reduced from 66 to 61.9. 3. Prior history of adjustable gastric band with intolerance. 4. Obstructive sleep apnea, untreated. 5. Glucose intolerance. 6. Leukocytosis. 7. Hypertensive cardiomyopathy. 8. History of left ventricular hypertrophy. 9. Bilateral lower extremity edema. 10. Gastroesophageal reflux disease. 11. Osteoarthritis of the lower back. 12. Osteoarthritis of the bilateral hips. 13. Osteoarthritis of bilateral knees. 14. Congestive heart failure. 15. History of complications from adjustable gastric band. 16. Gastroesophageal reflux disease. 17. Panniculitis. 18. Diabetes type 2, nlo-pylrtaj-emsiglvie. POSTOPERATIVE DIAGNOSES: 1. Morbid obesity due to excess calories. 2. Body mass index reduced from 66 to 61.9. 3. Prior history of adjustable gastric band with intolerance. 4. Obstructive sleep apnea, untreated. 5. Glucose intolerance. 6. Leukocytosis. 7. Hypertensive cardiomyopathy. 8. History of left ventricular hypertrophy. 9. Bilateral lower extremity edema. 10. Gastroesophageal reflux disease. 11. Osteoarthritis of the lower back. 12. Osteoarthritis of the bilateral hips. 13. Osteoarthritis of bilateral knees. 14. Congestive heart failure. 15. History of complications from adjustable gastric band. 16. Gastroesophageal reflux disease. 17. Panniculitis. 18. Diabetes type 2, wsj-[id number]-dxpoeihjw. 19. Severe lower abdominal adhesions from previous 20. Adhesions along the superior pole of stomach from previous adjustable gastric band 21. Severe hepatomegaly with fatty liver disease. 22. Lipodystrophy of omental fat. COURSE: INDICATIONS: The patient is a very pleasant, 46-year-old female who presents with morbid obesity as her body mass index was 66. She had a prior adjustable gastric band removal 2-3 months ago. At her height of 5 foot 5 inches, her ideal body weight is 149 pounds. She comes in weighing pounds 394 pounds. She is 245 pounds overweight. All surgical options for morbid obesity had been described using the [place] bariatric surgery collaborative comorbidity resolution including complication risk score. The patient had elected for a gastric bypass with possible sleeve gastrectomy. A second-generation bariatric consent form was described in detail including the possibility of protein malnutrition, leaks, gastrojejunal stricture, venous thrombosis, need for further surgery for which she demonstrated understanding. Benefits and risks of the procedure were described at length. Informed consent was obtained. She underwent a Lucien-en-Y gastric bypass robotic approach with moderate complexity of 7 hours of her case. Postoperatively, she complained of osteoarthritis and pinched nerve the left shoulder. Occupational therapy including physical therapy was consulted. For her multiple medical comorbidities, medicine consultation including pulmonary consultation was obtained. A bedside drink test to evaluate for leak was performed with methylene blue after 2-3 days of nothing by mouth status. She had passed her bedside drinking test. For severe depression, psych assessment was also obtained to change her pills to liquid form. Prior to discharge she was tolerating liquids. She denied any moderate abdominal pain. HARITHA drain care was reviewed. Discharge instructions including close postoperative follow-up was reviewed with the patient and her family. The patient declined any additional pain meds that she takes tramadol at home. Pertinent Studies: Chest x-ray demonstrating cardiomegaly. Procedures: PREOPERATIVE DIAGNOSES: 1. Morbid obesity due to excess calories. 2. Body mass index reduced from 66 to 61.9. 3. Prior history of adjustable gastric band with intolerance. 4. Obstructive sleep apnea, untreated. 5. Glucose intolerance. 6. Leukocytosis. 7. Hypertensive cardiomyopathy. 8. History of left ventricular hypertrophy. 9. Bilateral lower extremity edema. 10. Gastroesophageal reflux disease. 11. Osteoarthritis of the lower back. 12. Osteoarthritis of the bilateral hips. 13. Osteoarthritis of bilateral knees. 14. Congestive heart failure. 15. History of complications from adjustable gastric band. 16. Gastroesophageal reflux disease. 17. Panniculitis. 18. Diabetes type 2, [id number]-[id number]. POSTOPERATIVE DIAGNOSES: 1. Morbid obesity due to excess calories. 2. Body mass index reduced from 66 to 61.9. 3. Prior history of adjustable gastric band with intolerance. 4. Obstructive sleep apnea, untreated. 5. Glucose intolerance. 6. Leukocytosis. 7. Hypertensive cardiomyopathy. 8. History of left ventricular hypertrophy. 9. Bilateral lower extremity edema. 10. Gastroesophageal reflux disease. 11. Osteoarthritis of the lower back. 12. Osteoarthritis of the bilateral hips. 13. Osteoarthritis of bilateral knees. 14. Congestive heart failure. 15. History of complications from adjustable gastric band. 16. Gastroesophageal reflux disease. 17. Panniculitis. 18. Diabetes type 2, pmo-swzhxhf-uxzktklyd. 19. Severe lower abdominal adhesions from previous 20. Adhesions along the superior pole of stomach from previous adjustable gastric band 21. Severe hepatomegaly with fatty liver disease. 22. Lipodystrophy of omental fat. OPERATION: 1. Robotic assisted laparoscopic Lucien-en-Y gastric bypass, 100cm antecolic antegastric Lucien limb, with 25 mm EEA. 2. Intraoperative esophagogastrojejunoscopy. 3. Laparoscopic lysis of adhesions over 4 hours. Patient Condition at Discharge: Fair Plan - Discharge Summary New Discharge Prescriptions: New FLUoxetine ORAL SOLN [PROzac ORAL SOLN] 20 mg PO DAILY #150 ml Omeprazole 40 mg PO DAILY #90 capsule. Continue Furosemide [Lasix] 20 mg PO DAILY traMADol HCl [Ultram] 50 mg PO Q4H PRN #30 tab PRN Reason: Pain Montelukast [Singulair] 10 mg PO HS PRN PRN Reason: INCR IN ALLERGIES LORazepam [Ativan] 0.5 mg PO TID PRN PRN Reason: Anxiety Olmesartan/Hydrochlorothiazide [Olmesartan-Hctz 40-25 mg Tab] 1 tab PO DAILY Discontinued Venlafaxine HCl [Effexor XR] 225 mg PO DAILY Ibuprofen [Motrin] 600 mg PO Q8HR PRN PRN Reason: Pain Ergocalciferol [Vitamin D2] 50,000 unit PO MO Gabapentin [Neurontin] 300 mg PO TID metFORMIN HCL [Glucophage] 500 mg PO BID #60 tab No Action HYDROcodone/APAP [[place] Elixir 7.5-325Mg/15Ml] 30 ml PO Q6HR PRN #480 ml PRN Reason: Pain Enoxaparin [Lovenox] 40 mg SQ Q12H #10 syringe Discharge Medication List Furosemide [Lasix] 20 mg PO DAILY 04/13/16 [History] traMADol HCl [Ultram] 50 mg PO Q4H PRN #30 tab 04/14/16 [Rx] LORazepam [Ativan] 0.5 mg PO TID PRN 10/27/16 [History] Montelukast [Singulair] 10 mg PO HS PRN 10/27/16 [History] Olmesartan/Hydrochlorothiazide [Olmesartan-Hctz 40-25 mg Tab] 1 tab PO DAILY [History] FLUoxetine ORAL SOLN [PROzac ORAL SOLN] 20 mg PO DAILY #150 ml 04/07/17 [Rx] Omeprazole 40 mg PO DAILY #90 capsule. 04/07/17 [Rx] Enoxaparin [Lovenox] 40 mg SQ Q12H #10 syringe 04/08/17 [Rx] HYDROcodone/APAP [[place] Elixir 7.5-325Mg/15Ml] 30 ml PO Q6HR PRN #480 ml [Rx] Follow up Appointment(s)/Referral(s): Diana Sandy MD [STAFF PHYSICIAN] - 04/11/17 2:00 pm (Bariatric Center) Patient Instructions/Handouts: How to Use an Incentive Spirometer (GEN), Guill[place]-T[place]ter Drain Care (DC), Nutrition after Bariatric Surgery (DC), Bowel Management After Bariatric Surgery (DC), Lucien-en-Y Gastric Bypass (GEN) Activity/Diet/Wound Care/Special Instructions: Continue with bariatric clear liquid diet over the weekend. May start protein shakes on Tuesday. May do walking. Keep outputs of HRAITHA drain. No bath tub soaks. Avoid getting HARITHA site wet. Please notify bariatric center for any issues. Discharge Disposition: HOME SELF-CARE
== END 2017-04-07 21:30 | disposition home or self-care (01) | DRG 620 ==
LOC: 2ORWHC 08:48 → 3SUR 19:18
PROVIDERS: ADMIT Surgery Plastic and Reconstructive Surgery; ATTEND Surgery Plastic and Reconstructive Surgery
PROC: 0DNV4ZZ Release Mesentery, Percutaneous Endoscopic Approach (ICD-10-PCS; 2017-04-04)
PROC: 8E0W4CZ Robotic Assisted Procedure of Trunk Region, Percutaneous Endoscopic Approach (ICD-10-PCS; 2017-04-04)
PROC: 0DJ08ZZ Inspection of Upper Intestinal Tract, Via Natural or Artificial Opening Endoscopic (ICD-10-PCS; 2017-04-04)
PROC: 0D164ZA Bypass Stomach to Jejunum, Percutaneous Endoscopic Approach (ICD-10-PCS; principal; 2017-04-04 10:45)
DX: E66.01 Morbid (severe) obesity due to excess calories (principal); I43 Cardiomyopathy in diseases classified elsewhere; K31.6 Fistula of stomach and duodenum; I50.32 Chronic diastolic (congestive) heart failure; F19.939 Other psychoactive substance use, unspecified with withdrawal, unspecified; I11.0 Hypertensive heart disease with heart failure; E11.42 Type 2 diabetes mellitus with diabetic polyneuropathy; R16.0 Hepatomegaly, not elsewhere classified; Z68.44 Body mass index [BMI] 60.0-69.9, adult; K31.4 Gastric diverticulum; M79.3 Panniculitis, unspecified; K76.0 Fatty (change of) liver, not elsewhere classified; F32.9 Major depressive disorder, single episode, unspecified; J44.9 Chronic obstructive pulmonary disease, unspecified; G47.33 Obstructive sleep apnea (adult) (pediatric); K21.9 Gastro-esophageal reflux disease without esophagitis; M17.0 Bilateral primary osteoarthritis of knee; M16.0 Bilateral primary osteoarthritis of hip; F41.9 Anxiety disorder, unspecified; E88.1 Lipodystrophy, not elsewhere classified; M47.9 Spondylosis, unspecified; E78.5 Hyperlipidemia, unspecified; N73.6 Female pelvic peritoneal adhesions (postinfective); G43.909 Migraine, unspecified, not intractable, without status migrainosus; M54.2 Cervicalgia; K66.0 Peritoneal adhesions (postprocedural) (postinfection); Z90.49 Acquired absence of other specified parts of digestive tract; Z87.891 Personal history of nicotine dependence; Z90.710 Acquired absence of both cervix and uterus; Z79.84 Long term (current) use of oral hypoglycemic drugs; Z79.899 Other long term (current) drug therapy
CPT/HCPCS: 71010; 80048; 80051; 82310; 82565; 83036; 83735; 84100; 84484; 84520; 85025; 86850; 86900; 86901; 94640; 94660; 94760; 94762

== ENCOUNTER → 2017-04-08 | Outpatient (CLI) | payer BC ==
[2017-04-08 12:33] VITALS: BP 141/96; PULSE 99; TEMP 97.9; BMI 71.9
--- NOTE | 2017-04-20 20:38 | P.PN ---
Progress Note - Text DATE OF SERVICE: 04/08/2017 CHIEF COMPLAINT: Bariatric assessment. HISTORY OF PRESENT ILLNESS: Luz Elena Galloway is a 46-year-old female status post revision to a Lucien-en-Y gastric bypass 04/04/2017. She he had an adjustable gastric band placed in 2007 with subsequent removal 01/14/2017 from intolerance to her fills as well as gastric prolapse. She had tachycardia preoperatively. She reports anxiety at home. She reports feeling better today. She has generalized aches occluding of her left shoulder. Her tachycardia is resolved. She denies any fevers or chills. No reports of dysphagia. No reports of epigastric abdominal pain. She denies any change in color of her HARITHA drain. At a height of 5 feet, 5 inches, she comes in weighing 405 pounds. [place] body weight is 149 pounds. She is 256 pounds overweight. Her body mass is 67.6. PHYSICAL EXAM: VITAL SIGNS: 5 feet 5 inches, 405 pounds. Body mass index of 67.6 Vital Signs Temp 97.9 F 04/08/17 12:27 Pulse 99 04/08/17 12:27 Resp BP 141/96 04/08/17 12:27 Pulse Ox GENERAL: Well-developed female in no acute distress. HEENT: No scleral icterus. Extraocular movements grossly intact. Moist buccal mucosa. NECK: Supple without lymphadenopathy. CHEST: Nonlabored respirations with equal bilateral excursions. CARDIOVASCULAR: Regular rate. Regular rhythm. ABDOMEN: Soft, nontender, nondistended. HARITHA drain serosanguineous of left upper quadrant. No signs of infection or cellulitis. Dressings changed at bedside of HARITHA and discontinued at left upper quadrant. MUSCULOSKELETAL: No clubbing , however, 2+ bilateral pitting edema. NEURO: No focal or lateralizing signs. Cranial nerves 2 through 12 grossly within normal limits. PSYCH: Appropriate affect. Alert and oriented to person, place, and time. SKIN: Hyperpigmentation along the neck base. Also, moderate pannus, with hyperpigmentation and erythema consistent with panniculitis. LABS: Hemoglobin A1c elevated at 6.4. ASSESSMENT: 1. Morbid obesity due to excess calories. 2. Body mass index is 67.2. 3. Prior history of adjustable gastric band with intolerance. 4. Obstructive sleep apnea. 5. Diabetes type 2, waw-vunwvyw-zadmhwnhz. 6. Leukocytosis. 7. Hypertensive cardiomyopathy. 8. History of left ventricular hypertrophy. 9. Bilateral lower extremity edema. 10. Gastroesophageal reflux disease. 11. Osteoarthritis of the lower back. 12. Osteoarthritis of the bilateral hips. 13. Osteoarthritis of bilateral knees. 14. Congestive heart failure. 15. Hepatomegaly with fatty liver disease. 16. Posterior gastric prolapse. 17. Gastritis, superficial, chronic. 18. Erosive esophagitis. 19. Difficult intubation requiring glide scope. 20. Chronic panniculitis. 21. Depression. 22. Status post gastric bypass revision. PLAN: 1. Her heart rate is now normalized. I have asked her to continue checking her vitals at home. 2. Diet and medications were adjusted including [place] liquid prescribed. 3. Continue HARITHA following start of protein shakes. 4. Plan to discontinue HARITHA in follow-up after 48-72 hours in the bariatric center. 5. Continue with liquid antidepressant. 6. Continue with Lovenox postop as patient has past history of tobacco use and high risk of DVT per [facility] DVT calculator.
== END | disposition home or self-care (01) ==
LOC: BARWHC3 11:30
PROVIDERS: ATTEND Surgery Plastic and Reconstructive Surgery
DX: Z48.815 Encounter for surgical aftercare following surgery on the digestive system (principal); E66.01 Morbid (severe) obesity due to excess calories; Z68.44 Body mass index [BMI] 60.0-69.9, adult; G47.33 Obstructive sleep apnea (adult) (pediatric); E11.9 Type 2 diabetes mellitus without complications; D72.829 Elevated white blood cell count, unspecified; I11.9 Hypertensive heart disease without heart failure; K21.9 Gastro-esophageal reflux disease without esophagitis; M47.816 Spondylosis without myelopathy or radiculopathy, lumbar region; M16.0 Bilateral primary osteoarthritis of hip; M17.0 Bilateral primary osteoarthritis of knee; I50.9 Heart failure, unspecified; R16.0 Hepatomegaly, not elsewhere classified; K76.0 Fatty (change of) liver, not elsewhere classified; K31.89 Other diseases of stomach and duodenum; K29.30 Chronic superficial gastritis without bleeding; K22.10 Ulcer of esophagus without bleeding; M79.3 Panniculitis, unspecified; F32.9 Major depressive disorder, single episode, unspecified; Z98.84 Bariatric surgery status
CPT/HCPCS: 99211

== ENCOUNTER → 2017-04-11 | Outpatient (CLI) | payer BC ==
[2017-04-11 16:54] VITALS: BP 103/82; PULSE 114; TEMP 97.5; BMI 69.7
--- NOTE | 2017-04-20 20:52 | P.PN ---
Progress Note - Text DATE OF SERVICE: 04/11/2017 CHIEF COMPLAINT: Bariatric assessment. HISTORY OF PRESENT ILLNESS: Luz Elena Galloway is a 46-year-old female status post revision to a Lucien-en-Y gastric bypass 04/04/2017. She he had an adjustable gastric band placed in 2007 with subsequent removal 01/14/2017 from intolerance to her fills as well as gastric prolapse. "I feel great." No reports of abdominal pain. No reports of dysphagia. She reports increased energy. He presents 1 week out from her surgery. She has started her protein shakes. No reports of change in color for HARITHA drain. At a height of 5 feet, 5 inches, she comes in weighing 393 pounds. [place] body weight is 149 pounds. She has lost 12 pounds in 3 days. She is 244 pounds overweight. Her body mass is 65.5. PHYSICAL EXAM: VITAL SIGNS: 5 feet 5 inches, 393 pounds. Body mass index of 65.5 Vital Signs Temp 97.5 F L 04/11/17 16:51 Pulse 114 H 04/11/17 16:51 Resp BP 103/82 04/11/17 16:51 Pulse Ox GENERAL: Well-developed female in no acute distress. HEENT: No scleral icterus. Extraocular movements grossly intact. Moist buccal mucosa. NECK: Supple without lymphadenopathy. CHEST: Nonlabored respirations with equal bilateral excursions. CARDIOVASCULAR: Tachycardic. ABDOMEN: Soft, nontender, nondistended. HARITHA drain serosanguineous of left upper quadrant. No signs of infection or cellulitis. HARITHA drain discontinued. MUSCULOSKELETAL: No clubbing. No pitting edema. NEURO: No focal or lateralizing signs. Cranial nerves 2 through 12 grossly within normal limits. PSYCH: Appropriate affect. Alert and oriented to person, place, and time. ASSESSMENT: 1. Morbid obesity due to excess calories. 2. Body mass index is 67.5 to 65.5. 3. Prior history of adjustable gastric band with intolerance. 4. Obstructive sleep apnea. 5. Diabetes type 2, evw-cthvnax-wxoqzrznv. 6. Leukocytosis. 7. Hypertensive cardiomyopathy. 8. History of left ventricular hypertrophy. 9. Bilateral lower extremity edema. 10. Gastroesophageal reflux disease. 11. Osteoarthritis of the lower back. 12. Osteoarthritis of the bilateral hips. 13. Osteoarthritis of bilateral knees. 14. Congestive heart failure. 15. Hepatomegaly with fatty liver disease. 16. Posterior gastric prolapse. 17. Gastritis, superficial, chronic. 18. Erosive esophagitis. 19. Difficult intubation requiring glide scope. 20. Chronic panniculitis. 21. Depression. 22. Status post gastric bypass revision. PLAN: 1. Continue protein intake. 2. She reports being fairly active at home including gardening prematurely. I' ve asked her to only walk as needed. 3. Continue with Lovenox as she continues to ambulate frequently. 4. Follow-up in 1 week.
== END | disposition home or self-care (01) ==
LOC: BARWHC3 15:53
PROVIDERS: ATTEND Surgery Plastic and Reconstructive Surgery
DX: E66.01 Morbid (severe) obesity due to excess calories (principal); G47.33 Obstructive sleep apnea (adult) (pediatric); E11.9 Type 2 diabetes mellitus without complications; D72.829 Elevated white blood cell count, unspecified; I11.9 Hypertensive heart disease without heart failure; K21.9 Gastro-esophageal reflux disease without esophagitis; M47.816 Spondylosis without myelopathy or radiculopathy, lumbar region; M16.0 Bilateral primary osteoarthritis of hip; M17.0 Bilateral primary osteoarthritis of knee; I50.9 Heart failure, unspecified; F32.9 Major depressive disorder, single episode, unspecified; M79.3 Panniculitis, unspecified; K20.9 Esophagitis, unspecified; Z98.84 Bariatric surgery status
CPT/HCPCS: 97803; 99211

== ENCOUNTER → 2017-04-21 | Outpatient (CLI) | payer BC ==
[2017-04-21 10:29] VITALS: BP 170/91; PULSE 82; RESP 16; TEMP 97.8; BMI 62.8
--- NOTE | 2017-04-21 15:09 | P.PN ---
Progress Note - Text DATE OF SERVICE: 04/21/2017 CHIEF COMPLAINT: Bariatric assessment. HISTORY OF PRESENT ILLNESS: Luz Elena Galloway is a 46-year-old female status post revision to a Lucien-en-Y gastric bypass 04/04/2017. She he had an adjustable gastric band placed in 2007 with subsequent removal 01/14/2017 from intolerance to her fills as well as gastric prolapse. She reports having moderate mood swings. She has not been taking her Xanax. She denies any troubles drinking fluids. No troubles with swallowing her current medications. Her personal goal is to discontinue her blood pressure medications. She is off all medications for diabetes. She is off her pain medications. She denies any abdominal pain. No reports of fevers or chills. She checks her blood pressure and heart rate regularly which she says is within normal limits. At a height of 5 feet, 5 inches, she comes in weighing 377 pounds. [place] body weight is 149 pounds. She has lost 16 pounds in 1 week. She has has 31 pounds in 2 weeks. Her body mass is reduced from 68.0 to 62.9. PHYSICAL EXAM: VITAL SIGNS: 5 feet 5 inches, 377 pounds. Body mass index of 65.5 Vital Signs Temp 97.8 F 04/21/17 10:04 Pulse 82 04/21/17 10:04 Resp 16 04/21/17 10:04 BP 170/91 04/21/17 10:04 Pulse Ox Intake & Output 04/20/17 04/21/17 04/21/17 18:59 06:59 18:59 Weight 171.458 kg GENERAL: Well-developed female in no acute distress. HEENT: No scleral icterus. Extraocular movements grossly intact. Moist buccal mucosa. NECK: Supple without lymphadenopathy. CHEST: Nonlabored respirations with equal bilateral excursions. CARDIOVASCULAR: Regular rate and regular rhythm. ABDOMEN: Soft, nontender, nondistended. No signs of infection or cellulitis. MUSCULOSKELETAL: No clubbing. No pitting edema. NEURO: No focal or lateralizing signs. Cranial nerves 2 through 12 grossly within normal limits. PSYCH: Appropriate affect. Alert and oriented to person, place, and time. ASSESSMENT: 1. Morbid obesity due to excess calories. 2. Body mass index is 68.0 to 62.9 3. Prior history of adjustable gastric band with intolerance. 4. Obstructive sleep apnea. 5. Diabetes type 2, sxv-zneccbt-vksddbwwi. 6. Leukocytosis, resolved. 7. Hypertensive cardiomyopathy. 8. History of left ventricular hypertrophy. 9. Bilateral lower extremity edema. 10. Gastroesophageal reflux disease. 11. Osteoarthritis of the lower back. 12. Osteoarthritis of the bilateral hips. 13. Osteoarthritis of bilateral knees. 14. Congestive heart failure. 15. Hepatomegaly with fatty liver disease. 16. Posterior gastric prolapse. 17. Gastritis, superficial, chronic. 18. Erosive esophagitis. 19. Difficult intubation requiring glide scope. 20. Chronic panniculitis. 21. Depression. 22. Status post gastric bypass revision. PLAN: 1. I reviewed with her her intraoperative findings including a gastric diverticulum from her initial gastric pouch. A diagram of her findings was reviewed and questions answered. 2. May start pured diet. Soft foods at least 4-5 weeks postop. 3. Prescription for Xanax written. 4. Medical reconciliation performed. 5. She'll continue with her blood pressure medications with close monitoring of her blood pressure at home. 6. Follow-up in 2 weeks or sooner if problems.
== END | disposition home or self-care (01) ==
LOC: BARWHC3 09:47
PROVIDERS: ATTEND Surgery Plastic and Reconstructive Surgery
DX: E66.01 Morbid (severe) obesity due to excess calories (principal); E11.9 Type 2 diabetes mellitus without complications; K21.9 Gastro-esophageal reflux disease without esophagitis; M47.816 Spondylosis without myelopathy or radiculopathy, lumbar region; M16.0 Bilateral primary osteoarthritis of hip; M17.0 Bilateral primary osteoarthritis of knee; I50.9 Heart failure, unspecified; I11.0 Hypertensive heart disease with heart failure; R16.0 Hepatomegaly, not elsewhere classified; K31.89 Other diseases of stomach and duodenum; K29.30 Chronic superficial gastritis without bleeding; K22.10 Ulcer of esophagus without bleeding; M79.3 Panniculitis, unspecified; R60.0 Localized edema; F32.9 Major depressive disorder, single episode, unspecified; Z68.44 Body mass index [BMI] 60.0-69.9, adult; Z98.84 Bariatric surgery status
CPT/HCPCS: 99211

== ENCOUNTER → 2017-05-04 | Outpatient (CLI) | payer BC ==
[2017-05-04 16:25] VITALS: BP 128/88; PULSE 85; RESP 16; TEMP 97.7; BMI 60.8
--- NOTE | 2017-05-29 00:34 | P.PN ---
Progress Note - Text DATE OF SERVICE: 05/04/2017 CHIEF COMPLAINT: Bariatric assessment. HISTORY OF PRESENT ILLNESS: Luz Elena Galloway is a 46-year-old female status post revision to a Lucien-en-Y gastric bypass 04/04/2017. She he had an adjustable gastric band placed in 2007 with subsequent removal 01/14/2017. She is now one month out and has lost 41 pounds. No reports of nausea and vomiting. No reports of fevers or chills. She reports moderate energy. No reports of abdominal pain. At a height of 5 feet, 5 inches, her highest weight was 405 pounds. She comes in weighing 365 pounds. [place] body weight is 149 pounds. She has lost 12 pounds in 1 week. Her total weight loss is 41 pounds. Her body mass is reduced from 67.6 to 60.8. PHYSICAL EXAM: VITAL SIGNS: 5 feet 5 inches, 365 pounds. Body mass index of 60.8. Vital Signs Temp 97.7 F 05/04/17 16:22 Pulse 85 05/04/17 16:22 Resp 16 05/04/17 16:22 BP 128/88 05/04/17 16:22 Pulse Ox GENERAL: Well-developed female in no acute distress. HEENT: No scleral icterus. Extraocular movements grossly intact. Moist buccal mucosa. NECK: Supple without lymphadenopathy. CHEST: Nonlabored respirations with equal bilateral excursions. CARDIOVASCULAR: Regular rate and regular rhythm. ABDOMEN: Soft, nontender, nondistended. Still healing incision on the epigastrium. No cellulitis. MUSCULOSKELETAL: No clubbing. No pitting edema. NEURO: No focal or lateralizing signs. Cranial nerves 2 through 12 grossly within normal limits. PSYCH: Appropriate affect. Alert and oriented to person, place, and time. ASSESSMENT: 1. Morbid obesity due to excess calories. 2. Body mass index is 67.8 to 60.8 3. Prior history of adjustable gastric band with intolerance. 4. Obstructive sleep apnea. 5. Diabetes type 2, [id number]. 6. Leukocytosis, resolved. 7. Hypertensive cardiomyopathy. 8. History of left ventricular hypertrophy. 9. Bilateral lower extremity edema, resolved. 10. Gastroesophageal reflux disease. 11. Osteoarthritis of the lower back. 12. Osteoarthritis of the bilateral hips. 13. Osteoarthritis of bilateral knees. 14. Congestive heart failure. 15. Chronic panniculitis. 16. Depression. 17. Status post gastric bypass revision. PLAN: 1. Recommendation metabolic panel. 2. May start multivitamin. 3. May start Effexor. 4. Continue omeprazole.
== END | disposition home or self-care (01) ==
LOC: BARWHC3 15:43
PROVIDERS: ATTEND Surgery Plastic and Reconstructive Surgery
DX: Z48.815 Encounter for surgical aftercare following surgery on the digestive system (principal); E66.01 Morbid (severe) obesity due to excess calories; G47.33 Obstructive sleep apnea (adult) (pediatric); E11.9 Type 2 diabetes mellitus without complications; K21.9 Gastro-esophageal reflux disease without esophagitis; M47.816 Spondylosis without myelopathy or radiculopathy, lumbar region; M16.0 Bilateral primary osteoarthritis of hip; I11.0 Hypertensive heart disease with heart failure; I50.9 Heart failure, unspecified; F32.9 Major depressive disorder, single episode, unspecified; M79.3 Panniculitis, unspecified; Z98.890 Other specified postprocedural states; Z98.84 Bariatric surgery status; Z68.44 Body mass index [BMI] 60.0-69.9, adult
CPT/HCPCS: 97803; 99211

== ENCOUNTER → 2017-05-11 | Outpatient (CLI) | payer BC ==
[2017-05-11 14:33] LABS: CH 30.9; CHCM 32.7; HCT 50.7 % (34.0-46.0); HDW 2.69; MCHC 31.6 g/dL (31.0-37.0); MCV 94.8 fL (80.0-100.0); Mean Platelet Volume 7.8; RBC 5.35 m/uL (3.80-5.40); RDW 15.1 % (11.5-15.5); WBC 9.6 k/uL (3.8-10.6)
[2017-05-11 14:38] LABS: INR 1.1 (<1.2); Partial Thromboplastin Time 23.7 sec (22.0-30.0); Prothrombin Time 11.1 sec (9.0-12.0)
[2017-05-11 14:48] LABS: ALT 128 U/L (9-52); AST 50 U/L (14-36); Alkaline Phosphatase 121 U/L (38-126); Anion Gap 15 mmol/L; Blood Urea Nitrogen 14 mg/dL (7-17); Calcium 9.8 mg/dL (8.4-10.2); Carbon Dioxide 26 mmol/L (22-30); Chloride 100 mmol/L (98-107); Cholesterol 151 mg/dL (<200); Glucose 93 mg/dL (74-99); HDL Cholesterol 42 mg/dL (40-60); Iron 60 ug/dL (37-170); Magnesium 1.9 mg/dL (1.6-2.3); Non-African American GFR(MDRD) >60 (>60 ml/min/1.73 sqM); Potassium 3.9 mmol/L (3.5-5.1); Sodium 141 mmol/L (137-145); Total Bilirubin 0.9 mg/dL (0.2-1.3); Total Protein 7.4 g/dL (6.3-8.2); Triglycerides 139 mg/dL (<150)
[2017-05-11 14:58] LABS: Prealbumin 29 mg/dL (18-36); Total Iron Binding Capacity 377 ug/dL (265-497)
[2017-05-11 15:53] LABS: Vitamin B12 946 pg/mL (239-931)
[2017-05-11 20:05] LABS: Hemoglobin A1C 5.7 % (4.2-6.1)
[2017-05-13 18:59] LABS: Selenium 204 mcg/L (63-160)
== END | disposition home or self-care (01) ==
LOC: LABWHC1 13:28
PROVIDERS: ATTEND Surgery Plastic and Reconstructive Surgery
DX: E66.01 Morbid (severe) obesity due to excess calories (principal); E21.1 Secondary hyperparathyroidism, not elsewhere classified; E89.1 Postprocedural hypoinsulinemia; D50.8 Other iron deficiency anemias; K90.89 Other intestinal malabsorption; E55.9 Vitamin D deficiency, unspecified; K76.9 Liver disease, unspecified; N19 Unspecified kidney failure; K50.90 Crohn's disease, unspecified, without complications
CPT/HCPCS: 36415; 80053; 80061; 82306; 82525; 82607; 82728; 82746; 83036; 83540; 83550; 83735; 83970; 84100; 84134; 84255; 84425; 84443; 84590; 84630; 85027; 85610; 85730

== ENCOUNTER → 2017-07-07 | Outpatient (CLI) | payer BC ==
[2017-07-07 10:34] VITALS: BP 157/81; PULSE 57; RESP 20; TEMP 98.1; BMI 55.9
--- NOTE | 2017-07-17 21:07 | P.PN ---
Subjective DATE OF SERVICE: 07/07/2017 CHIEF COMPLAINT: Bariatric assessment. HISTORY OF PRESENT ILLNESS: Luz Elena Galloway is a 46-year-old female who is status post gastric bypass 04/04/2017. At a height of 5 feet, 5 inches, she was 405 pounds. [place] body weight is 149 pounds. She has lost 70 pounds in 3 months. She has lost 30 pounds in 2 months. Her percent excess weight loss is 27%. She is 196 pounds overweight. Her personal goal is to get down to 20 pounds. She denies heartburn. No dumping syndrome. She has panniculitis. She is off medications for diabetes. PAST MEDICAL HISTORY: 1. Super morbid obesity. 2. Depression. 3. Chronic obstructive pulmonary disease. 4. Hypertension. 5. Panniculitis. 6. Obstructive sleep apnea. 7. Congestive heart failure. 8. Diabetes type 2, [id number]. PAST SURGICAL HISTORY: 1. . 2. Cholecystectomy. 3. Adjustable gastric band placement, 2007. 4. Adjustable gastric band removal, 01/14/2017. 5. Status post gastric bypass, 04/04/2017. MEDICATIONS: 1. Multivitamin. 2. Ultram. 3. Effexor. 4. Lasix. 5. Omeprazole. ALLERGIES: Denies. SOCIAL HISTORY: No active alcohol use. She is a former tobacco user. FAMILY HISTORY: Pertinent for diabetes including morbid obesity. REVIEW OF SYSTEMS: CONSTITUTIONAL: At a height of 5 feet, 5 inches, she was 405 pounds. [place] body weight is 149 pounds. She has lost 70 pounds in 3 months. She has lost 30 pounds in 2 months. Her percent excess weight loss is 27%. She is 196 pounds overweight. HEENT: Wears glasses. No troubles with hearing. Denies dysphagia. ENDOCRINE: Denies any known history of thyroid disorders. His diabetes type 2, resolved. RESPIRATORY: Has obstructive sleep apnea. No recent pneumonia. CARDIOVASCULAR: Has hypertension including prior history of heart disease. GASTROINTESTINAL: Reports intermittent gastroesophageal reflux disease. No reports of diarrhea. MUSCULOSKELETAL: Has osteoarthritis of the lower back including bilateral hips and knees. NEURO: No reports of stroke or seizure disorders. PSYCH: Has depression. No suicidal ideation. HEMATOLOGIC: Denies any easy bruising or bleeding. PHYSICAL EXAM: VITAL SIGNS: 5 feet 5 inches, 335 pounds. Body mass index of 55.9. Vital Signs Temp 98.1 F 07/07/17 10:26 Pulse 57 L 07/07/17 10:26 Resp 20 07/07/17 10:26 BP 157/81 07/07/17 10:26 Pulse Ox GENERAL: Well-developed female in no acute distress. HEENT: No scleral icterus. Extraocular movements grossly intact. Moist buccal mucosa. NECK: Supple without lymphadenopathy. CHEST: Nonlabored respirations with equal bilateral excursions. CARDIOVASCULAR: Tachycardic. ABDOMEN: Soft, nontender, nondistended. MUSCULOSKELETAL: No clubbing , however, 2+ bilateral pitting edema. NEURO: No focal or lateralizing signs. Cranial nerves 2 through 12 grossly within normal limits. PSYCH: Appropriate affect. Alert and oriented to person, place, and time. SKIN: Hyperpigmentation along the neck base. Also, moderate pannus, with hyperpigmentation and erythema consistent with panniculitis. LABS: Pending. ASSESSMENT: 1. Morbid obesity due to excess calories. 2. Body mass index is 67.5 down to 55.9. 3. Prior history of adjustable gastric band with intolerance. 4. Obstructive sleep apnea. 5. Diabetes type 2, [id number], resolved. 6. Leukocytosis. 7. Hypertensive cardiomyopathy, improved. 8. History of left ventricular hypertrophy. 9. Bilateral lower extremity edema, improved. 10. Gastroesophageal reflux disease, resolved. 11. Osteoarthritis of the lower back, improved. 12. Osteoarthritis of the bilateral hips. 13. Osteoarthritis of bilateral knees, improved. 14. Congestive heart failure, improved. 15. Hepatomegaly with fatty liver disease. 16. Chronic panniculitis. PLAN: 1. Recommend metabolic panel. 2. Recommend multivitamin. 3. Diabetes is resolved. Objective - Vital Signs Vital signs: Vital Signs Temp 98.1 F 07/07/17 10:26 Pulse 57 L 07/07/17 10:26 Resp 07/07/17 10:26 BP 157/81 07/07/17 10:26 Pulse Ox Intake & Output 07/06/17 07/07/17 07/07/17 18:59 06:59 18:59 Weight 152.362 kg
== END | disposition home or self-care (01) ==
LOC: BARWHC3 09:48
PROVIDERS: ATTEND Surgery Plastic and Reconstructive Surgery
DX: E66.01 Morbid (severe) obesity due to excess calories (principal); G47.33 Obstructive sleep apnea (adult) (pediatric); D72.829 Elevated white blood cell count, unspecified; M16.0 Bilateral primary osteoarthritis of hip; K76.0 Fatty (change of) liver, not elsewhere classified; M79.3 Panniculitis, unspecified; F32.9 Major depressive disorder, single episode, unspecified; I10 Essential (primary) hypertension; Z68.43 Body mass index [BMI] 50.0-59.9, adult
CPT/HCPCS: 97802; 99201

== ENCOUNTER → 2017-10-26 | Outpatient (CLI) | payer BC ==
[2017-10-26 15:40] VITALS: RESP 16; BMI 49.6
--- NOTE | 2017-12-17 16:04 | P.PN ---
Subjective Progress Note Date: 10/26/17 DATE OF SERVICE: 10/26/2017 CHIEF COMPLAINT: Follow up gastric bypass. HISTORY OF PRESENT ILLNESS: Luz Elena Galloway is a 47-year-old female who is status post gastric bypass 04/04/2017. At a height of 5 feet, 5 inches, she is 406 pounds. [place] body weight is 149 pounds. She has lost 108 pounds, lifetime. She has lost 38 pounds in 3 months. Her percent excess weight loss is 42%. She is 149 pounds overweight. Her personal goal is to get down to 200 pounds. She started to exercise more. She has decreased her blood pressure medications. Separately she reports panniculitis. As result of her weight loss surgery, her son has also lost at least 64 pounds support of her. She has a strong support system. She reports back and hip pain with walking. PAST MEDICAL HISTORY: 1. Super morbid obesity. 2. Depression. 3. Chronic obstructive pulmonary disease. 4. Hypertension. 5. Panniculitis. 6. Obstructive sleep apnea. 7. Congestive heart failure. 8. Diabetes type 2, [id number]. PAST SURGICAL HISTORY: 1. . 2. Cholecystectomy. 3. Adjustable gastric band placement, 2007. 4. Adjustable gastric band removal, 01/14/2017. 5. Status post gastric bypass, 04/04/2017. MEDICATIONS: 1. Multivitamin. 2. Ultram. 3. Effexor. 4. Lasix. 5. Omeprazole. 6. Olmesartan/HCTZ ALLERGIES: Denies. SOCIAL HISTORY: No active alcohol use. She is a former tobacco user. FAMILY HISTORY: Pertinent for diabetes including morbid obesity. REVIEW OF SYSTEMS: CONSTITUTIONAL: At a height of 5 feet, 5 inches, she was 406 pounds. [place] body weight is 149 pounds. She has lost 108 pounds in 6 months. She has lost 38 pounds in 3 months. Her percent excess weight loss is 42%. She is 149 pounds overweight. HEENT: Wears glasses. No troubles with hearing. Denies dysphagia. ENDOCRINE: Denies any known history of thyroid disorders. His diabetes type 2, resolved. RESPIRATORY: Has obstructive sleep apnea. No recent pneumonia. CARDIOVASCULAR: Has hypertension including prior history of heart disease. GASTROINTESTINAL: Reports intermittent gastroesophageal reflux disease. No reports of diarrhea. MUSCULOSKELETAL: Has osteoarthritis of the lower back including bilateral hips and knees. NEURO: No reports of stroke or seizure disorders. PSYCH: Has depression. No suicidal ideation. HEMATOLOGIC: Denies any easy bruising or bleeding. SKIN: Has panniculitis of the skin including chest and breasts. PHYSICAL EXAM: VITAL SIGNS: 5 feet 5 inches, 298 pounds. Body mass index of 49.6. Vital Signs Temp Pulse Resp 16 10/26/17 15:39 BP Pulse Ox GENERAL: Well-developed female in no acute distress. HEENT: No scleral icterus. Extraocular movements grossly intact. Moist buccal mucosa. NECK: Supple without lymphadenopathy. CHEST: Nonlabored respirations with equal bilateral excursions. CARDIOVASCULAR: Regular rate. Regular rhythm. ABDOMEN: Soft, nontender, nondistended. MUSCULOSKELETAL: No clubbing , however, 2+ bilateral pitting edema. NEURO: No focal or lateralizing signs. Cranial nerves 2 through 12 grossly within normal limits. PSYCH: Appropriate affect. Alert and oriented to person, place, and time. SKIN: Well perfused. Good skin turgor. Has panniculitis. ASSESSMENT: 1. Morbid obesity due to excess calories. 2. Body mass index is 67.5 down to 49.6. 3. Prior history of adjustable gastric band with intolerance. 4. Obstructive sleep apnea. 5. Diabetes type 2, [id number], resolved. 6. Leukocytosis. 7. Hypertensive cardiomyopathy, improved. 8. History of left ventricular hypertrophy. 9. Bilateral lower extremity edema, improved. 10. Gastroesophageal reflux disease, resolved. 11. Osteoarthritis of the lower back, improved. 12. Osteoarthritis of the bilateral hips. 13. Osteoarthritis of bilateral knees, improved. 14. Congestive heart failure, improved. 15. Hepatomegaly with fatty liver disease. 16. Chronic panniculitis. PLAN: 1. She is doing extremely well. Recommend continued exercise. 2. Recommend bariatric metabolic panel. 3. Nystatin powder has been ordered on her behalf for panniculitis. Objective - Vital Signs Vital signs: Vital Signs Temp Pulse Resp 16 10/26/17 15:39 BP Pulse Ox Intake & Output 10/25/17 10/26/17 10/26/17 18:59 06:59 18:59 Weight 135.261 kg
== END | disposition home or self-care (01) ==
LOC: BARWHC3 14:48
PROVIDERS: ATTEND Surgery Plastic and Reconstructive Surgery
DX: Z09 Encounter for follow-up examination after completed treatment for conditions other than malignant neoplasm (principal); M79.3 Panniculitis, unspecified; E66.01 Morbid (severe) obesity due to excess calories; G47.33 Obstructive sleep apnea (adult) (pediatric); D72.829 Elevated white blood cell count, unspecified; I11.0 Hypertensive heart disease with heart failure; I43 Cardiomyopathy in diseases classified elsewhere; R60.0 Localized edema; M47.9 Spondylosis, unspecified; M16.0 Bilateral primary osteoarthritis of hip; M17.0 Bilateral primary osteoarthritis of knee; K76.0 Fatty (change of) liver, not elsewhere classified; R16.0 Hepatomegaly, not elsewhere classified; Z87.898 Personal history of other specified conditions; F32.9 Major depressive disorder, single episode, unspecified; J44.9 Chronic obstructive pulmonary disease, unspecified; Z90.49 Acquired absence of other specified parts of digestive tract; Z98.84 Bariatric surgery status; Z87.891 Personal history of nicotine dependence; Z86.79 Personal history of other diseases of the circulatory system; Z68.42 Body mass index [BMI] 45.0-49.9, adult; Z98.890 Other specified postprocedural states; Z79.899 Other long term (current) drug therapy
CPT/HCPCS: 97803; 99211

== ENCOUNTER 2019-09-29 11:46 | Emergency (ER) | payer BC ==
[2019-09-29] MEDS ORDERED: LORazepam 2 MG/ML INJ IV STA (12:37)
[2019-09-29] MEDS ORDERED: LOSARTAN 25 MG TAB PO STA (12:37)
[2019-09-29] MEDS ORDERED: SODIUM CHLORIDE 0.9% 500 ML 500 ML IV ONE (12:38)
--- NOTE | 2019-09-29 12:53 | ED ---
General Adult HPI - General Chief complaint: Recheck/Abnormal Lab/Rx Stated complaint: High BP Time Seen by Provider: 09/29/19 12:29 Source: patient, RN notes reviewed, old records reviewed Mode of arrival: ambulatory Limitations: no limitations - History of Present Illness Initial comments: 49-year-old female history of hypertension presents for evaluation of elevated blood pressure. Patient was seen at her primary care physician's office today for evaluation status post psychiatric admission. She has history of hypertension but has not been on antihypertensives for approximately 2 years. She states that while she was admitted to the psychiatric facility she did have some elevated blood pressures in the 150s systolic. Today at the office showed an elevated blood pressure over 200 systolic. She was represcribed Benicar and was encouraged to present to the emergency department for evaluation. She denies central radiating chest pain. Denies focal numbness or weakness. She does report she is anxious and depressed. No suicidal or homicidal ideation. She also reports that she has elevated blood pressure in health care settings. - Related Data Home Medications Medication Instructions Recorded Confirmed Furosemide [Lasix] 20 mg PO DAILY 04/13/16 10/31/17 Olmesartan/Hydrochlorothiazide 1 tab PO DAILY PRN 01/12/17 10/31/17 [Olmesartan-Hctz 40-25 mg Tab] Multivitamins, Thera [Multivitamin 1 tab PO DAILY 05/04/17 10/31/17 (formulary)] Previous Rx's Medication Instructions Recorded Omeprazole 40 mg PO DAILY #90 capsule. 04/07/17 LORazepam [Ativan] 0.5 mg PO BID #90 tab 04/21/17 Nystatin 100,000 Unit/gm Powd 1 applic TOPICAL BID #60 powder 10/26/17 [Mycostatin Powder] Allergies Allergy/AdvReac Type Severity Reaction Status Date / Time No Known Allergies Allergy Verified 09/29/19 12:25 Review of Systems ROS Statement: Those systems with pertinent positive or pertinent negative responses have been documented in the HPI. ROS Other: All systems not noted in ROS Statement are negative. Past Medical History Past Medical History: GERD/Reflux, Hypertension, Sleep Apnea/CPAP/BIPAP Additional Past Medical History / Comment(s): Neuropathy LT FOOT/HAND. Edema BLE. Brain Lesions. Anemia. Migraines. HAS CPAP. History of Any Multi-Drug Resistant Organisms: None Reported Past Surgical History: Bariatric Surgery, Section, Cholecystectomy, Hysterectomy, Tubal Ligation Additional Past Surgical History / Comment(s): lap band (removed 01/14/17), oopherectomy, gastric bypass 04-04-17 Past Anesthesia/Blood Transfusion Reactions: No Reported Reaction Past Psychological History: Anxiety Smoking Status: Former smoker Past Alcohol Use History: None Reported Past Drug Use History: None Reported - Past Family History Mother Family Medical History: Cancer Additional Family Medical History / Comment(s): liver cancer Father Family Medical History: Hypertension General Exam Limitations: no limitations General appearance: alert, in no apparent distress Head exam: Present: atraumatic, normocephalic Eye exam: Present: normal appearance, PERRL ENT exam: Present: normal exam Neck exam: Present: normal inspection. Absent: tenderness, meningismus Respiratory exam: Present: normal lung sounds bilaterally. Absent: respiratory distress, wheezes Cardiovascular Exam: Present: regular rate, normal rhythm GI/Abdominal exam: Present: soft. Absent: distended, tenderness, guarding Extremities exam: Present: normal inspection, normal capillary refill. Absent: pedal edema Back exam: Present: normal inspection Neurological exam: Present: alert, oriented X3, CN II-XII intact. Absent: motor sensory deficit Psychiatric exam: Present: depressed, anxious. Absent: suicidal ideation Skin exam: Present: warm, dry, intact. Absent: cyanosis, diaphoretic Course Vital Signs 09/29/19 09/29/19 09/29/19 12:21 12:30 13:16 Temperature 98.1 F Pulse Rate 73 72 Pulse Rate [ 72 It Business Analyst ] Respiratory 18 20 Rate Blood Pressure 197/117 188/109 O2 Sat by Pulse 96 98 Oximetry 09/29/19 14:34 Temperature Pulse Rate 74 Pulse Rate [ It Business Analyst ] Respiratory 20 Rate Blood Pressure 149/98 O2 Sat by Pulse 98 Oximetry EKG Findings - EKG Comments: EKG Findings:: EKG: Normal sinus rhythm, left atrial enlargement, rate 79, ND interval 160, QRS duration 94, QTC [address] segment elevation Medical Decision Making - Medical Decision Making 49-year-old female with history of hypertension presenting with elevated blood pressure at the primary care's office. Patient is hypertensive upon arrival. She's given a dose of her knee prescribed Benicar orally. Laboratory studies are obtained normal CBC,normal CMP, normal kidney function, negative troponin. Blood pressure significantly down trending with oral medications. Patient will monitor blood pressure home. She has been prescribed antihypertensives by her primary care physician which she will initiate. She will follow-up closely with her primary care physician. - Lab Data Result diagrams: 09/29/19 12:50 09/29/19 13:47 Lab Results 09/29/19 09/29/19 09/29/19 Range/Units 12:50 13:47 13:47 WBC 9.5 (3.8-10.6) k/uL RBC 5.35 (3.80-5.40) m/uL Hgb 13.6 (11.4-16.0) gm/dL Hct 43.8 (34.0-46.0) % MCV 82.0 (80.0-100.0) fL MCH 25.5 (25.0-35.0) pg MCHC 31.1 (31.0-37.0) g/dL RDW 14.4 (11.5-15.5) % Plt Count 285 (150-450) k/uL Neutrophils % 63 % Lymphocytes % 26 % Monocytes % 7 % Eosinophils % 3 % Basophils % 1 % Neutrophils # 6.0 (1.3-7.7) k/uL Lymphocytes # 2.4 (1.0-4.8) k/uL Monocytes # 0.6 (0-1.0) k/uL Eosinophils # 0.3 (0-0.7) k/uL Basophils # 0.1 (0-0.2) k/uL Sodium 139 (137-145) mmol/L Potassium 4.2 (3.5-5.1) mmol/L Chloride 106 (98-107) mmol/L Carbon Dioxide 26 (22-30) mmol/L Anion Gap 7 mmol/L BUN 11 (7-17) mg/dL Creatinine 0.59 (0.52-1.04) mg/dL Est GFR (CKD-EPI)AfAm >90 (>60 ml/min/1.73 sqM) Est GFR (CKD-EPI)NonAf >90 (>60 ml/min/1.73 sqM) Glucose 80 (74-99) mg/dL Calcium 8.6 (8.4-10.2) mg/dL Total Bilirubin 0.4 (0.2-1.3) mg/dL AST 26 (14-36) U/L ALT 35 H (4-34) U/L Alkaline Phosphatase 137 H (38-126) U/L Troponin I <0.012 (0.000-0.034) ng/mL Total Protein 6.6 (6.3-8.2) g/dL Albumin 3.3 L (3.5-5.0) g/dL Disposition Clinical Impression: Hypertension Disposition: HOME SELF-CARE Condition: Good Instructions (If sedation given, give patient instructions): Hypertension (ED) Is patient prescribed a controlled substance at d/c from ED?: No Referrals: Rafael Love MD [Primary Care Provider] - 1-2 days Time of Disposition: 15:44
[2019-09-29 13:10] LABS: Basophils # (A) 0.1 k/uL (0-0.2); Basophils % (A) 1 %; Eosinophils # (A) 0.3 k/uL (0-0.7); Eosinophils % (A) 3 %; HCT 43.8 % (34.0-46.0); HGB 13.6 gm/dL (11.4-16.0); Lymphocytes # (A) 2.4 k/uL (1.0-4.8); Lymphocytes % (A) 26 %; MCH 25.5 pg (25.0-35.0); MCHC 31.1 g/dL (31.0-37.0); Mean Platelet Volume 8.6; Monocytes # (A) 0.6 k/uL (0-1.0); Monocytes % (A) 7 %; Neutrophils % (A) 63 %; Platelet Count 285 k/uL (150-450); RBC 5.35 m/uL (3.80-5.40); RDW 14.4 % (11.5-15.5); WBC 9.5 k/uL (3.8-10.6)
[2019-09-29 13:18] VITALS: RESP 20
[2019-09-29 14:47] LABS: ALT 35 U/L (4-34); AST 26 U/L (14-36); African American GFR (CKD) >90 (>60 ml/min/1.73 sqM); Albumin 3.3 g/dL (3.5-5.0); Alkaline Phosphatase 137 U/L (38-126); Anion Gap 7 mmol/L; Blood Urea Nitrogen 11 mg/dL (7-17); Calcium 8.6 mg/dL (8.4-10.2); Carbon Dioxide 26 mmol/L (22-30); Chloride 106 mmol/L (98-107); Glucose 80 mg/dL (74-99); Non-African American GFR(CKD) >90 (>60 ml/min/1.73 sqM); Potassium 4.2 mmol/L (3.5-5.1); Sodium 139 mmol/L (137-145); Total Bilirubin 0.4 mg/dL (0.2-1.3); Total Protein 6.6 g/dL (6.3-8.2)
[2019-09-29 16:15] VITALS: BP 161/90; PULSE 90; TEMP 98
== END 2019-09-29 16:13 | disposition home or self-care (01) ==
LOC: EC 11:46
DX: I10 Essential (primary) hypertension (principal); G47.30 Sleep apnea, unspecified; Z79.899 Other long term (current) drug therapy; Z87.891 Personal history of nicotine dependence; Z99.89 Dependence on other enabling machines and devices; Z82.49 Family history of ischemic heart disease and other diseases of the circulatory system
CPT/HCPCS: 36415; 93005; 80053; 84484; 85025; 99284; 96374; J2060